=== PATIENT | female | born 1970 | race Caucasian/White ===

== ENCOUNTER → 2016-08-19 | Outpatient (CLI) | payer OTHER ==
[~2016-08-19] MED LIST: ALBU17IN INH; ALBU83IN INH; CLAR10CA3 PO; CYMB1CAP5 PO; CYMB60CA3 PO; DAYP600T PO; DICL50TA2 PO; DOXY100C PO; DULO30CA PO; FLON1SPR; GLUC500T53 PO; IBUP-1114 PO; IRON65TA PO; LEVA1.256 INH; LIDO1OIN2 TOP; LIDO5DIS36 TD; MAGN400T2 PO; MULTCAP11 PO; NABU750T PO; NEXI40CA PO; PERC5TAB6 PO; PRED10PA PO; PRED10TA PO; PRED20TAB PO; SING10TA32 PO; SPIR1CAP INH; SYMB16INH INH; THEO300C PO; VITA100066 PO; VITMTA PO; flexeril PO
--- NOTE | 2016-08-20 06:52 | REP ---
MRI study of bilateral knees without contrast: History: Increased bilateral knee pain. Comparison right knee MRI study from May 06, 2016 was read as showing evidence of avascular necrosis mild chondromalacia. MRI study of the left knee from that same date showed evidence of femoral condylar avascular necrosis as well. Technique: Axial, sagittal, and coronal imaging planes were utilized. T1 and T2-weighted scans were obtained in the usual fashion with and without fat saturation. Right knee MRI findings: There are extensive areas of avascular necrosis again seen extending from anterior to posterior through the articular margin of the medial and lateral femoral condyles. There is no evidence of flattening or collapse. Cortical and medullary bone signal intensity is normal in the patella, proximal tibia, and proximal fibula. The areas in the distal femur appear unchanged. Anterior and posterior cruciate ligaments have an intact appearance. Patellar and quadriceps tendons are intact. There is no evidence of significant joint effusion or Weiss's cyst. There is chondromalacia patella noted laterally. This may be more prominent than on the prior study as there is a partial thickness articular cartilage defect in the lateral patellar facet which appears more prominent. There is some central increased signal intensity in the midbody of the medial meniscus but this does not extend to an articular margin and is not expected to correlate with a tear. Impression: Fairly extensive areas of medial and lateral femoral condyle avascular necrosis without evidence of secondary collapse. There is some chondromalacia change in the lateral patellar facet which is a little more prominent. Mild chondromalacia changes are seen in the medial femoral condyle unchanged. Left knee MRI findings: There is extensive area of avascular necrosis in the subcortical bone involving the lateral femoral condyle again noted. This is unchanged. Cortical and medullary bone signal intensity are normal otherwise in the left knee bones. There is minimal joint fluid. There is mild chondromalacia patella medially and laterally unchanged. Patellar and quadriceps tendons appear intact. Anterior and posterior cruciate ligaments have an intact appearance. No medial or lateral collateral ligament disruption is seen. There are mild chondromalacia changes in the medial femoral condyle. These are unchanged. No meniscal tear is seen. Impression: Avascular necrosis involving the lateral femoral condyle. There is chondromalacia in the medial and patellofemoral compartments unchanged. Signed by Leodan Syed MD 08/20/2016 08:46 A
== END ==
LOC: M RAD 17:30
PROVIDERS: ATTEND Orthopaedic Surgery Sports Medicine
DX: M22.41 Chondromalacia patellae, right knee (principal); M22.42 Chondromalacia patellae, left knee; M87.351 Other secondary osteonecrosis, right femur; M87.352 Other secondary osteonecrosis, left femur

== ENCOUNTER → 2016-09-12 | Outpatient (CLI) | payer OTHER ==
[~2016-09-12] MED LIST changes: +THEO1CAP4 PO; -THEO300C PO
--- NOTE | 2016-10-02 23:52 | ECWPNPC ---
PATIENT NAME: ARLETTE BORJA : 1970 GENDER: FEMALE VISIT DATE: 09/12/2016 DISCHARGE DATE: 09/12/16 1121 VISIT LOCKED DATE TIME: PHYSICIAN: FRANSISCO SIDDIQUI RESOURCE: FRANSISCO SIDDIQUI REASON FOR APPOINTMENT 1. BACK HISTORY OF PRESENT ILLNESS HISTORY OF PRESENT ILLNESS: PAIN THE PATIENT DESCRIBES THE PAIN... FALL RISK SCREENING: SCREENING :NO FALLS IN THE PAST YEAR TODAY'S VISIT: NOTES: SAW DR WILLOUGHBY - ORTHOPEDIC SURGEON AT [facility]. WAS GIVEN TEMP DBL CAR STICKER AND ADVISED NOT TO FALL. IS TO HAVE FURTHER EVAL OF HIPS AT [facility]. NOTES HIPS ARE CATCHING AND BACK HAS BOTHERING A LOT. HAS BEEN HAVING LEG AND TOES CRAMPING. TO HAVE LABS 09/21/16. HAD REPEAT BIOPSY OF THYROID COMPLETED BY DR Ricki DAVIS. ASTHMA HAS BEEN UNDER FAIR CONTROL. . CURRENT MEDICATIONS TAKING BREO ELLIPTA 200-25 MCG/INH AEROSOL POWDER BREATH ACTIVATED 1 PUFF INHALATION ONCE A DAY TAKING INCRUSE ELLIPTA 62.5 MCG/INH AEROSOL POWDER BREATH ACTIVATED 1 PUFF INHALATION ONCE A DAY TAKING XOPENEX HFA AEROSOL EVERY 6 HR NEEDED TAKING SINGULAIR 10 MG TABLET 1 TABLET IN THE EVENING ORALLY ONCE A DAY TAKING CYMBALTA 60 MG CAPSULE DELAYED RELEASE PARTICLES 1 CAPSULE ORALLY ONCE A DAY TAKING CYMBALTA 30 MG CAPSULE DELAYED RELEASE PARTICLES 1 CAPSULE ORALLY ONCE A DAY TAKING VITAMIN D-3 2000 SOFT GEL ORALLY TWICE A DAY TAKING MAGNESIUM 400 MG TABLET 1 TABLET ORALLY ONCE A DAY TAKING FERROUS GLUCONATE 325 (36 FE) MG TABLET 1 TABLET ORALLY ONCE A DAY TAKING LORATADINE 10 MG TABLET 1 TABLET ORALLY ONCE A DAY TAKING FLUTICASONE PROPIONATE 50 MCG/ACT SUSPENSION 1 SPRAY IN EACH NOSTRIL NASALLY TWICE A DAY TAKING SALINE AEROSOL SOLUTION NASAL SPRAY TID PRN TAKING PERCOCET 5-325 MG TABLET 1-2 ORALLY EVERY 6 -8 HRS PRN PAIN MDD=6 CHRONIC PAIN TAKING FLEXERIL 10 MG TABLET 1 TABLET ORALLY QHS TAKING ACETAMINOPHEN 500 MG TABLET 2 TABLETS NEEDED ORALLY EVERY 6 HRS TAKING MULTIVITAMIN TABLET CHEWABLE ORALLY ONCE DAILY TAKING PANTOPRAZOLE SODIUM 40 MG TABLET DELAYED RELEASE 1 TABLET ORALLY TWICE A DAY TAKING MAXALT 10 MG TABLET 1 TABLET AT ON SET OF INFANTE, MAY REPEAT X 1 AFTER 2 HOURS ORALLY TWICE A DAY NEEDED, MDD=2 TAKING TOPIRAMATE 50 MG TABLET 1 TABLET ORALLY TWICE A DAY, MDD=2 MEDICATION LIST REVIEWED AND RECONCILED WITH THE PATIENT PAST MEDICAL HISTORY LT WRIST INJURY RECURRENT SINUSITIS BACK INJURY-2000(WORK) ASTHMA HYPOMAGNESEMIA VITAMIN D DEFICIENCY ALLERGIES OSTEO NECROSIS BILATERAL KNEES ALLERGIES PENICILLIN (FOR ALLERGIES USE ONLY): HIVES: ALLERGY LEVAQUIN: HIVES,SWELLING: ALLERGY LYRICA: [employer] SWELLING: ALLERGY SUDAFED: HEART RACES: SIDE EFFECTS ALBUTEROL: HEART RACES: SIDE EFFECTS SOCIAL HISTORY GENERAL: TOBACCO USE ARE YOU A:NONSMOKER LEARNING BARRIERS / SPECIAL NEEDS ORIENTED TO PLAN OF CARE: PATIENT, PAIN MANAGEMENT PATIENT, ORIENTED TO PLAN OF CARE: PATIENT, PAIN MANAGEMENT PATIENT. NEW PATIENT PAIN DIARY TODAY'S VISITNOTES FROM 0-10, WHAT LEVEL IS YOUR PAIN TODAY?0 PAIN CLINIC PFS, CLERGY, PUBLIC HEALTH REFERRALS PFS REFERRAL NEEDED?NO CLERGY REFERRAL NEEDED?NO PUBLIC HEALTH REFERRAL NEEDED?NO WAS THE PROVIDER NOTIFIED OF ANY PERTINENT INFO?NO PFS REFERRAL NEEDED?NO CLERGY REFERRAL NEEDED?NO PUBLIC HEALTH REFERRAL NEEDED?NO WAS THE PROVIDER NOTIFIED OF ANY PERTINENT INFO?NO REVIEW OF SYSTEMS CONSTITUTIONAL: ANY CHANGE IN YOUR MEDICAL CONDITION? NO . CHILLS NO . FEVER NO . INFECTION: DO YOU HAVE NEW INFECTIONS? NO . DO YOU HAVE HISTORY OF MRSA? NO . MUSCULOSKELETAL: ANY NEW PATTERNS OF PAIN OR NUMBNESS? NO . GASTROENTEROLOGY: ANY NEW CHANGE IN BOWEL CONTROL? NO . GENITOURINARY: ANY NEW CHANGE IN BLADDER CONTROL? NO . IS THERE A CHANCE YOU COULD BE ? NO . HEMATOLOGY/LYMPH: DO YOU TAKE ANY BLOOD THINNERS? (FOR EXAMPLE- COUMADIN, PLAVIX, AGGRENOX, PLATEL, PRADAXA, OR XARELTO) NO . WHEN WAS YOUR LAST DOSE? DATE: TIME: . NEUROLOGY: HAVE YOU FALLEN IN THE PAST 6 MONTHS? NO . ANY NEW EXTREMITY NUMBNESS OR WEAKNESS? NO . CARDIOLOGY: DO YOU HAVE A PACEMAKER OR DEFIBRILLATOR? NO . RESPIRATORY: HAVE YOU BEEN SICK IN THE PAST WEEK? NO . FEVER NO . FLU LIKE SYMPTOMS? NO . ASTHMA INTERMITTANT NEED FOR RESCUE INHALER - UNDER FAIR CONTROL . COUGH NO . INTEGUMENTARY: DO YOU HAVE ANY RASHES OR OPEN SORES? NO . ALLERGIC/IMMUNO: ARE YOU ALLERGIC TO SHELLFISH OR IV DYE? NO . ANY NEW ALLERGIES? NO . PSYCHIATRIC: DO YOU HAVE THOUGHTS OF HURTING YOURSELF OR SOMEONE ELSE? NO . ARE YOU ABUSED, NEGLECTED, OR IN AN UNSAFE ENVIRONMENT? NO . ENDOCRINOLOGY: ARE YOU DIABETIC? NO . OTHER: DO YOU NEED ANY PRESCRIPTIONS? YES TYLENOL ARTHRITIS 650, PERCOCET, VIT D, MAGNESIUM, FLEXERIL . IF YES, PLEASE LIST: ____ . ANY NEW PROBLEMS WITH YOUR MEDICATIONS? NO . WHEN DID YOU LAST EAT? ____ . WHEN DID YOU LAST DRINK? ____ . WHAT DID YOU LAST DRINK? ____ . NAME OF PERSON DRIVING YOU HOME? ____ . DO YOU HAVE ANY OTHER QUESTIONS OR CONCERNS YES, CRAMPING IN LEGS AND TOES, HIPS LOCK UP. . REVIEWED BY: PROVIDER: FRANSISCO VASQUEZ . VITAL SIGNS WT 219.4 LBS, HT 63 IN, BMI 38.86 INDEX, BP 138/80 MM HG, HR 88 /MIN, RR 18 /MIN, TEMP 97.3 F, OXYGEN SAT % 97, NA INITIALS TL 1026. EXAMINATION GENERAL EXAMINATION: GENERAL APPEARANCE:NO ACUTE DISTRESS, WELL NOURISHED AND HYDRATED. PSYCHAPPROPRIATE MOOD AND AFFECT . LUNGS:CLEAR TO AUSCULTATION BILATERALLY, NO WHEEZES, RHONCHI, RALES. HEART:NO MURMURS, REGULAR RATE AND RHYTHM. MUSCULOSKELETAL:MUSCLE STRENGTH TESTING 5/5 BILATERAL UPPER AND LOWER EXTREMITIES. POINT TENDERNESS OVER LUMBAR PARAVERTEBRAL MUSCLES. , TRIGGER POINTS:, ELICITED WITH PALPATION OVER LUMBAR PARAVERTEBRAL MUSCLES AND INTO THE SECRUM. RESTRICTION OF ROM IN THIS AREA. ASSESSMENTS JOINT PAIN, KNEE - M25.569 (PRIMARY) LOW BACK PAIN - M54.5 CHRONICALLY ON OPIATE THERAPY - Z79.899 TREATMENT JOINT PAIN, KNEE REFILL MAGNESIUM TABLET, 400 MG, 1 TABLET, ORALLY, ONCE A DAY, 30 DAYS, 30, REFILLS 5 REFILL PERCOCET TABLET, 5-325 MG, 1-2, ORALLY, EVERY 6 -8 HRS PRN PAIN MDD=6 CHRONIC PAIN, 30 DAY(S), 180, REFILLS 0 REFILL FLEXERIL TABLET, 10 MG, 1 TABLET, ORALLY, QHS, 30 DAY(S), 30, REFILLS 2 REFILL VITAMIN D-3 SOFT GEL, 2000, ORALLY, TWICE A DAY, 30 DAYS, 60, REFILLS 5 START SM ARTHRITIS PAIN RELIEF TABLET EXTENDED RELEASE, 650 MG, 2 TABLETS NEEDED, ORALLY, TAKE 2 TABS Q 2-8 HRS PRN PAIN MDD=6, 30 DAY(S), 180, REFILLS 5 NOTES: ASK ORTHO ABOUT KNEE BRACE WITH BARS. DECREASE CYMBALTO TO 60 MG AND TAKE 30 MG EVERY OTHER DAY FOR 2 WEEKS, THEN EVERY 3 DAYS FOR 2 WEEKS THEN TWICE A WEEK FOR 2 WEEKS. THEN STOP THE 30 MG.SCRIPT GIVEN FOR SWIMMING AT [facility]. PROCEDURE CODES FA211 ESTABILISHED PATIENT [facility] CHARGE DISPOSITION & COMMUNICATION FOLLOW UP 4-6 WEEKS ELECTRONICALLY SIGNED BY AMERICA WOODY ON 09/29/2016 AT 01:29 PM EST DISCLAIMER : THIS IS A VISIT SUMMARY EXTRACTED FROM THE [employer] CHART. IT IS NOT A COPY OF THE [employer] PROGRESS NOTE. CHARMAINE
== END ==
LOC: M PAIN 10:20
PROVIDERS: ATTEND Nurse Practitioner Family
DX: Z09 Encounter for follow-up examination after completed treatment for conditions other than malignant neoplasm (principal); G89.29 Other chronic pain; M25.569 Pain in unspecified knee; M54.5 Low back pain; J45.909 Unspecified asthma, uncomplicated; E55.9 Vitamin D deficiency, unspecified; Z88.0 Allergy status to penicillin; Z88.8 Allergy status to other drugs, medicaments and biological substances; Z79.1 Long term (current) use of non-steroidal anti-inflammatories (NSAID); Z79.891 Long term (current) use of opiate analgesic; Z79.899 Other long term (current) drug therapy

== ENCOUNTER → 2016-09-16 | Outpatient (CLI) | payer OTHER ==
--- NOTE | 2016-09-16 13:21 | REPMRS ---
Patient History The patient states she had a clinical breast exam in 09/2016. Family history of prostate cancer in father at age 50 or over. Digital Woman Screen Mammo: September 16, 2016 - Exam #: [id number] Bilateral CC and MLO view(s) were taken. Technologist: Vilma Ocoha Technologist Prior study comparison: September 15, 2015, digital woman screen mammo performed at [facility]. 2012, bilateral mammogram, performed at [facility]. FINDINGS: There are scattered fibroglandular densities. There has been no change in the appearance of the mammogram from the prior studies. There is a mild amount of scattered fibroglandular density which is fairly symmetric. There is no interval development of dominant mass, architectural distortion, or clustered microcalcification suggestive of malignancy. ASSESSMENT: BI-RADS/ACR category 1 mammogram. Negative. Recommendation Routine screening mammogram in 1 year (for women over age 40). This mammogram was interpreted with the aid of an FDA-approved computer-aided dectection system. Electronically Signed By: Adam Syed MD 09/16/16 [id number]
== END ==
LOC: M WHC 10:36
PROVIDERS: ATTEND Nurse Practitioner Women's Health
DX: Z12.31 Encounter for screening mammogram for malignant neoplasm of breast (principal)

== ENCOUNTER → 2016-09-16 | Outpatient (REF) | payer OTHER | LOC: M SFHCWAGY 11:01 | PROVIDERS: ATTEND Nurse Practitioner Women's Health | DX: Z12.4 Encounter for screening for malignant neoplasm of cervix (principal) ==

== ENCOUNTER → 2016-09-21 | Outpatient (REF) | payer OTHER ==
[2016-09-21 15:36] LABS: ALBUMIN 3.6 GM/DL (3.2-5.2); ALBUMIN/GLOBULIN RATIO 1.06 (1.00-1.93); ALKALINE PHOSPHATASE 92 U/L (45-117); ALT/SGPT 25 U/L (12-78); ANION GAP 8 MEQ/L (8-16); AST/SGOT 11 U/L (15-37); BILIRUBIN,TOTAL 0.3 MG/DL (0.2-1.0); BLOOD UREA NITROGEN 14 MG/DL (7-18); CALCIUM LEVEL 8.8 MG/DL (8.5-10.1); CARBON DIOXIDE LEVEL 28 MEQ/L (21-32); CHLORIDE LEVEL 108 MEQ/L (98-107); CREATININE FOR GFR 0.81 MG/DL (0.55-1.02); GLOMERULAR FILTRATION RATE > 60.0 (>58); GLUCOSE, FASTING 94 MG/DL (70-105); MAGNESIUM LEVEL 1.8 MG/DL (1.8-2.4); POTASSIUM SERUM 3.6 MEQ/L (3.5-5.1); SODIUM LEVEL 144 MEQ/L (136-145)
[2016-09-21 15:57] LABS: MEAN CORPUSCULAR HGB CONC 32.5 g/dl (32.0-36.5); MEAN CORPUSCULAR VOLUME 82.8 fl (80.0-96.0); RED CELL DISTRIBUTION WIDTH 14.2 % (11.5-14.5); WHITE BLOOD COUNT 3.2 K/mm3 (4.0-10.0)
== END ==
LOC: M SFHCSACK 09:54
PROVIDERS: ATTEND Physician Assistant
DX: D64.9 Anemia, unspecified (principal); J45.909 Unspecified asthma, uncomplicated; K21.9 Gastro-esophageal reflux disease without esophagitis; E83.42 Hypomagnesemia; E55.9 Vitamin D deficiency, unspecified

== ENCOUNTER → 2016-10-17 | Outpatient (CLI) | payer OTHER ==
[~2016-10-17] MED LIST changes: +MIDAZOLAM INJ 2 MG/2 ML VIAL (J2250) As Ordered ONE; +fentaNYL 100 MCG/2 ML INJECTION (J3010) As Ordered ONE
--- NOTE | 2016-10-18 01:57 | ECWPNPC ---
PATIENT NAME: ARLETTE BORJA : 1970 GENDER: FEMALE VISIT DATE: 10/17/2016 DISCHARGE DATE: 10/17/16 1133 VISIT LOCKED DATE TIME: PHYSICIAN: FRANSISCO SIDDIQUI RESOURCE: FRANSISCO SIDDIQUI REASON FOR APPOINTMENT 1. BACK HISTORY OF PRESENT ILLNESS HISTORY OF PRESENT ILLNESS: PAIN THE PATIENT DESCRIBES THE PAIN... FALL RISK SCREENING: SCREENING :NO FALLS IN THE PAST YEAR TODAY'S VISIT: NOTES: RATES PAIN TODAY 9/10. DESCRIBES PAIN CONSTANT, ACHING, BURNING, SHARP AND STABBING. PAIN IS LOCATED ACROSS LOW BACK, RIGHT SHOULDER BLADE AND AT JOINTS. NOTES SHE HAS BEEN FEELING REALLY TIRED AND THIINKS HER ASTHMA IS FLAIRED. DID RECENTLY START ON TOPAMAX FOR MIGRAINES.. CURRENT MEDICATIONS TAKING BREO ELLIPTA 200-25 MCG/INH AEROSOL POWDER BREATH ACTIVATED 1 PUFF INHALATION ONCE A DAY TAKING INCRUSE ELLIPTA 62.5 MCG/INH AEROSOL POWDER BREATH ACTIVATED 1 PUFF INHALATION ONCE A DAY TAKING XOPENEX HFA AEROSOL EVERY 6 HR NEEDED TAKING SINGULAIR 10 MG TABLET 1 TABLET IN THE EVENING ORALLY ONCE A DAY TAKING CYMBALTA 60 MG CAPSULE DELAYED RELEASE PARTICLES 1 CAPSULE ORALLY ONCE A DAY TAKING CYMBALTA 30 MG CAPSULE DELAYED RELEASE PARTICLES 1 CAPSULE ORALLY ONCE A DAY TAKING TOPIRAMATE 50 MG TABLET 1 TABLET ORALLY TWICE A DAY, MDD=2 TAKING MAXALT 10 MG TABLET 1 TABLET AT ON SET OF INFANTE, MAY REPEAT X 1 AFTER 2 HOURS ORALLY TWICE A DAY NEEDED, MDD=2 TAKING PERCOCET 5-325 MG TABLET 1-2 ORALLY EVERY 6 -8 HRS PRN PAIN MDD=6 CHRONIC PAIN TAKING FLEXERIL 10 MG TABLET 1 TABLET ORALLY QHS TAKING PANTOPRAZOLE SODIUM 40 MG TABLET DELAYED RELEASE 1 TABLET ORALLY TWICE A DAY TAKING MAGNESIUM 400 MG TABLET 1 TABLET ORALLY ONCE A DAY TAKING LORATADINE 10 MG TABLET 1 TABLET ORALLY ONCE A DAY TAKING FLUTICASONE PROPIONATE 50 MCG/ACT SUSPENSION 1 SPRAY IN EACH NOSTRIL NASALLY TWICE A DAY TAKING SALINE AEROSOL SOLUTION NASAL SPRAY TID PRN TAKING DRISDOL 21754 UNIT CAPSULE 1 CAPSULE ORALLY ONCE A WEEK TAKING MULTIVITAMIN TABLET CHEWABLE ORALLY ONCE DAILY TAKING SM ARTHRITIS PAIN RELIEF 650 MG TABLET EXTENDED RELEASE 2 TABLETS NEEDED ORALLY TAKE 2 TABS Q 2-8 HRS PRN PAIN MDD=6 TAKING FERROUS GLUCONATE 325 (36 FE) MG TABLET 1 TABLET ORALLY ONCE A DAY MEDICATION LIST REVIEWED AND RECONCILED WITH THE PATIENT PAST MEDICAL HISTORY LT WRIST INJURY RECURRENT SINUSITIS BACK INJURY-2000(WORK) ASTHMA HYPOMAGNESEMIA VITAMIN D DEFICIENCY ALLERGIES OSTEO NECROSIS BILATERAL KNEES ALLERGIES PENICILLIN (FOR ALLERGIES USE ONLY): HIVES: ALLERGY LEVAQUIN: HIVES,SWELLING: ALLERGY LYRICA: [employer] SWELLING: ALLERGY SUDAFED: HEART RACES: SIDE EFFECTS ALBUTEROL: HEART RACES: SIDE EFFECTS SOCIAL HISTORY GENERAL: TOBACCO USE ARE YOU A:NONSMOKER LEARNING BARRIERS / SPECIAL NEEDS ORIENTED TO PLAN OF CARE: PATIENT, PAIN MANAGEMENT PATIENT, ORIENTED TO PLAN OF CARE: PATIENT, PAIN MANAGEMENT PATIENT. NEW PATIENT PAIN DIARY TODAY'S VISITNOTES FROM 0-10, WHAT LEVEL IS YOUR PAIN TODAY?0 PAIN CLINIC PFS, CLERGY, PUBLIC HEALTH REFERRALS PFS REFERRAL NEEDED?NO CLERGY REFERRAL NEEDED?NO PUBLIC HEALTH REFERRAL NEEDED?NO WAS THE PROVIDER NOTIFIED OF ANY PERTINENT INFO?NO PFS REFERRAL NEEDED?NO CLERGY REFERRAL NEEDED?NO PUBLIC HEALTH REFERRAL NEEDED?NO WAS THE PROVIDER NOTIFIED OF ANY PERTINENT INFO?NO REVIEW OF SYSTEMS CONSTITUTIONAL: ANY CHANGE IN YOUR MEDICAL CONDITION? YES PT HAD A TRIGGER FINGER RELEASE DONE 10/13/16 IN [place]. . CHILLS NO . FEVER NO . INFECTION: DO YOU HAVE NEW INFECTIONS? NO . DO YOU HAVE HISTORY OF MRSA? NO . MUSCULOSKELETAL: ANY NEW PATTERNS OF PAIN OR NUMBNESS? YES PAIN IN RIGHT HAND S/P TRIGGER FINGER RELEASE 3 PT ALSO REPORTS SEVERE BACK PAIN WHEN SHE IS PREMENSTRUAL. . GASTROENTEROLOGY: ANY NEW CHANGE IN BOWEL CONTROL? NO . GENITOURINARY: ANY NEW CHANGE IN BLADDER CONTROL? NO . IS THERE A CHANCE YOU COULD BE ? NO . HEMATOLOGY/LYMPH: DO YOU TAKE ANY BLOOD THINNERS? (FOR EXAMPLE- COUMADIN, PLAVIX, AGGRENOX, PLATEL, PRADAXA, OR XARELTO) NO . WHEN WAS YOUR LAST DOSE? DATE: TIME: . NEUROLOGY: HAVE YOU FALLEN IN THE PAST 6 MONTHS? NO . ANY NEW EXTREMITY NUMBNESS OR WEAKNESS? NO . CARDIOLOGY: DO YOU HAVE A PACEMAKER OR DEFIBRILLATOR? NO . RESPIRATORY: HAVE YOU BEEN SICK IN THE PAST WEEK? NO . FEVER NO . FLU LIKE SYMPTOMS? NO . COUGH NO . INTEGUMENTARY: DO YOU HAVE ANY RASHES OR OPEN SORES? NO . ALLERGIC/IMMUNO: ARE YOU ALLERGIC TO SHELLFISH OR IV DYE? NO . ANY NEW ALLERGIES? NO . PSYCHIATRIC: DO YOU HAVE THOUGHTS OF HURTING YOURSELF OR SOMEONE ELSE? NO . ARE YOU ABUSED, NEGLECTED, OR IN AN UNSAFE ENVIRONMENT? NO . ENDOCRINOLOGY: ARE YOU DIABETIC? NO . OTHER: DO YOU NEED ANY PRESCRIPTIONS? YES OXYCODONE/TYLENOL 5/325, CYMBALTA, MAGNESIUM, SM ARTHRITIS PAIN . IF YES, PLEASE LIST: ____ . ANY NEW PROBLEMS WITH YOUR MEDICATIONS? NO . WHEN DID YOU LAST EAT? ____ . WHEN DID YOU LAST DRINK? ____ . WHAT DID YOU LAST DRINK? ____ . NAME OF PERSON DRIVING YOU HOME? ____ . DO YOU HAVE ANY OTHER QUESTIONS OR CONCERNS NO . REVIEWED BY: PROVIDER: FRANSISCO VASQUEZ . VITAL SIGNS WT 217.4 LBS, HT 63 IN, BMI 38.51 INDEX, BP 132/68 MM HG, HR 78 /MIN, RR 16 /MIN, TEMP 96.8 F, OXYGEN SAT % 96%, NA INITIALS SC 10:32. EXAMINATION GENERAL EXAMINATION: GENERAL APPEARANCE:NO ACUTE DISTRESS, WELL NOURISHED AND HYDRATED. PSYCHAPPROPRIATE MOOD AND AFFECT . LUNGS:CLEAR TO AUSCULTATION BILATERALLY, NO WHEEZES, RHONCHI, RALES. HEART:NO MURMURS, REGULAR RATE AND RHYTHM. MUSCULOSKELETAL:MUSCLE STRENGTH TESTING 5/5 BILATERAL UPPER AND LOWER EXTREMITIES. POINT TENDERNESS OVER LUMBAR PARAVERTEBRAL MUSCLES. , TRIGGER POINTS:, ELICITED WITH PALPATION OVER LUMBAR PARAVERTEBRAL MUSCLES AND INTO THE SECRUM. RESTRICTION OF ROM IN THIS AREA. ASSESSMENTS JOINT PAIN, KNEE - M25.569 (PRIMARY) LOW BACK PAIN - M54.5 CHRONICALLY ON OPIATE THERAPY - Z79.899 TREATMENT JOINT PAIN, KNEE REFILL PERCOCET TABLET, 5-325 MG, 1-2, ORALLY, EVERY 6 -8 HRS PRN PAIN MDD=6 CHRONIC PAIN, 30 DAY(S), 180, REFILLS 0 START B COMPLEX VITAMINS ELIXIR, -, DIRECTED, ORALLY, ONCE DAILY, 30 DAY(S), 30, REFILLS 2 NOTES: MOVE TOLERATED. CLINICAL NOTES: ISTOP REGISTRY REVIEWED AND DEMNOSTRATES COMPLLIANCE. BRINGS IN MEDICATIONS WHICH IS APPROPRIATE FOR WHAT WAS DISPENSED. RECENT URINE TOXICOLOGY REVIEWED. NO UNAUTHORIZED MEDICATIONS. NO ILLICIT SUBSTANCES AND PRESCRIBED MEDICATIONS WERE PRESENT. PROCEDURE CODES FA211 ESTABILISHED PATIENT [facility] CHARGE DISPOSITION & COMMUNICATION FOLLOW UP 7 WEEKS ELECTRONICALLY SIGNED BY AMERICA WOODY ON 10/17/2016 AT 06:32 PM EST DISCLAIMER : THIS IS A VISIT SUMMARY EXTRACTED FROM THE [employer] CHART. IT IS NOT A COPY OF THE [employer] PROGRESS NOTE. CHARMAINE
== END ==
LOC: M PAIN 10:00
PROVIDERS: ATTEND Nurse Practitioner Family
DX: M25.569 Pain in unspecified knee (principal); M54.5 Low back pain; G43.009 Migraine without aura, not intractable, without status migrainosus; G89.29 Other chronic pain; Z79.891 Long term (current) use of opiate analgesic; Z79.899 Other long term (current) drug therapy; D64.9 Anemia, unspecified; E83.42 Hypomagnesemia; E66.9 Obesity, unspecified; K21.9 Gastro-esophageal reflux disease without esophagitis; J45.909 Unspecified asthma, uncomplicated; Z88.0 Allergy status to penicillin; Z88.8 Allergy status to other drugs, medicaments and biological substances
CPT/HCPCS: G0463; J2250; J3010

== ENCOUNTER → 2016-12-09 | Outpatient (CLI) | payer OTHER ==
[~2016-12-09] MED LIST changes: -MIDAZOLAM INJ 2 MG/2 ML VIAL (J2250) As Ordered ONE; -fentaNYL 100 MCG/2 ML INJECTION (J3010) As Ordered ONE
--- NOTE | 2016-12-30 00:24 | ECWPNPC ---
PATIENT NAME: ARLETTE BORJA : 1970 GENDER: FEMALE VISIT DATE: 12/09/2016 DISCHARGE DATE: 12/09/16 1201 VISIT LOCKED DATE TIME: PHYSICIAN: FRANSISCO SIDDIQUI RESOURCE: FRANSISCO SIDDIQUI REASON FOR APPOINTMENT 1. BACK HISTORY OF PRESENT ILLNESS HISTORY OF PRESENT ILLNESS: PAIN THE PATIENT DESCRIBES THE PAIN... FALL RISK SCREENING: SCREENING :NO FALLS IN THE PAST YEAR TODAY'S VISIT: NOTES: RATES PAIN TODAY 8-9/10. NOTES PAIN AND REPORTS SWELLING AT RIGHT ANKLE. HAS BEEN TRING TO STAY ACTIVE.HAD RECENT CORTISONE INJ IN LEE KNEE. IS HAVING PAIN IN LOW BACK WITH ROUTINE ACTIVITY. . CURRENT MEDICATIONS TAKING BREO ELLIPTA 200-25 MCG/INH AEROSOL POWDER BREATH ACTIVATED 1 PUFF INHALATION ONCE A DAY TAKING INCRUSE ELLIPTA 62.5 MCG/INH AEROSOL POWDER BREATH ACTIVATED 1 PUFF INHALATION ONCE A DAY TAKING XOPENEX HFA AEROSOL EVERY 6 HR NEEDED TAKING SINGULAIR 10 MG TABLET 1 TABLET IN THE EVENING ORALLY ONCE A DAY TAKING CYMBALTA 60 MG CAPSULE DELAYED RELEASE PARTICLES 1 CAPSULE ORALLY ONCE A DAY TAKING TOPIRAMATE 50 MG TABLET 1 TABLET ORALLY BEFORE BEDTIME TAKING MAXALT 10 MG TABLET 1 TABLET AT ON SET OF INFANTE, DECEMBER REPEAT X 1 AFTER 2 HOURS ORALLY TWICE A DAY NEEDED, MDD=2 TAKING FLEXERIL 10 MG TABLET 1 TABLET ORALLY QHS NEEDED TAKING PANTOPRAZOLE SODIUM 40 MG TABLET DELAYED RELEASE 1 TABLET ORALLY TWICE A DAY TAKING MAGNESIUM 400 MG TABLET 1 TABLET ORALLY ONCE A DAY TAKING LORATADINE 10 MG TABLET 1 TABLET ORALLY ONCE A DAY TAKING FLUTICASONE PROPIONATE 50 MCG/ACT SUSPENSION 1 SPRAY IN EACH NOSTRIL NASALLY TWICE A DAY TAKING SALINE AEROSOL SOLUTION NASAL SPRAY TID PRN TAKING DRISDOL 40761 UNIT CAPSULE 1 CAPSULE ORALLY ONCE A WEEK TAKING MULTIVITAMIN TABLET CHEWABLE ORALLY ONCE DAILY TAKING SM ARTHRITIS PAIN RELIEF 650 MG TABLET EXTENDED RELEASE 2 TABLETS NEEDED ORALLY TAKE 2 TABS Q 2-8 HRS PRN PAIN MDD=6 TAKING FERROUS GLUCONATE 325 (36 FE) MG TABLET 1 TABLET ORALLY ONCE A DAY TAKING PERCOCET 5-325 MG TABLET 1-2 ORALLY EVERY 6 -8 HRS PRN PAIN MDD=6 CHRONIC PAIN TAKING PROZAC 10 MG CAPSULE 1 CAPSULE IN THE MORNING ORALLY ONCE A DAY NOT-TAKING CYMBALTA 30 MG CAPSULE DELAYED RELEASE PARTICLES 1 CAPSULE ORALLY ONCE A DAY NOT-TAKING B COMPLEX VITAMINS - ELIXIR DIRECTED ORALLY ONCE DAILY, NOTES: DID NOT GET SCRIPT MEDICATION LIST REVIEWED AND RECONCILED WITH THE PATIENT PAST MEDICAL HISTORY LT WRIST INJURY RECURRENT SINUSITIS BACK INJURY-2000(WORK) ASTHMA HYPOMAGNESEMIA VITAMIN D DEFICIENCY ALLERGIES OSTEO NECROSIS BILATERAL KNEES ALLERGIES PENICILLIN (FOR ALLERGIES USE ONLY): HIVES: ALLERGY LEVAQUIN: HIVES,SWELLING: ALLERGY LYRICA: [employer] SWELLING: ALLERGY SUDAFED: HEART RACES: SIDE EFFECTS ALBUTEROL: HEART RACES: SIDE EFFECTS REVIEW OF SYSTEMS CONSTITUTIONAL: ANY CHANGE IN YOUR MEDICAL CONDITION? NO . CHILLS NO . FEVER NO . INFECTION: DO YOU HAVE NEW INFECTIONS? NO . DO YOU HAVE HISTORY OF MRSA? NO . MUSCULOSKELETAL: ANY NEW PATTERNS OF PAIN OR NUMBNESS? NO . GASTROENTEROLOGY: ANY NEW CHANGE IN BOWEL CONTROL? NO . GENITOURINARY: ANY NEW CHANGE IN BLADDER CONTROL? NO . IS THERE A CHANCE YOU COULD BE ? NO . HEMATOLOGY/LYMPH: DO YOU TAKE ANY BLOOD THINNERS? (FOR EXAMPLE- COUMADIN, PLAVIX, AGGRENOX, PLATEL, PRADAXA, OR XARELTO) NO . WHEN WAS YOUR LAST DOSE? DATE: TIME: . NEUROLOGY: HAVE YOU FALLEN IN THE PAST 6 MONTHS? NO . ANY NEW EXTREMITY NUMBNESS OR WEAKNESS? NO . CARDIOLOGY: DO YOU HAVE A PACEMAKER OR DEFIBRILLATOR? NO . RESPIRATORY: HAVE YOU BEEN SICK IN THE PAST WEEK? NO . FEVER NO . FLU LIKE SYMPTOMS? NO . ASTHMA MORE FREQ COUGH, DOING INHALERS. IS HAVING ISSUES WITH SINUS DRAINAGE . COUGH NO . INTEGUMENTARY: DO YOU HAVE ANY RASHES OR OPEN SORES? NO . ALLERGIC/IMMUNO: ARE YOU ALLERGIC TO SHELLFISH OR IV DYE? NO . ANY NEW ALLERGIES? NO . PSYCHIATRIC: DO YOU HAVE THOUGHTS OF HURTING YOURSELF OR SOMEONE ELSE? NO . ARE YOU ABUSED, NEGLECTED, OR IN AN UNSAFE ENVIRONMENT? NO . ENDOCRINOLOGY: ARE YOU DIABETIC? NO . OTHER: DO YOU NEED ANY PRESCRIPTIONS? YES . IF YES, PLEASE LIST: PERCOCET AND FLEXERIL . ANY NEW PROBLEMS WITH YOUR MEDICATIONS? NO . WHEN DID YOU LAST EAT? ____ . WHEN DID YOU LAST DRINK? ____ . WHAT DID YOU LAST DRINK? ____ . NAME OF PERSON DRIVING YOU HOME? ____ . DO YOU HAVE ANY OTHER QUESTIONS OR CONCERNS YES, &QUOT;RIGHT ANKLE KILLING ME! SWOLLEN&QUOT; . REVIEWED BY: PROVIDER: FRANSISCO VASQUEZ . VITAL SIGNS WT 213.4 LBS, HT 63 IN, BMI 37.80 INDEX, BP 143/86 MM HG, HR 84 /MIN, RR 16 /MIN, TEMP 97.7 F, OXYGEN SAT % 98%, NA INITIALS SC 11:15, REVIEWED BY: CS. EXAMINATION GENERAL EXAMINATION: GENERAL APPEARANCE:NO ACUTE DISTRESS, WELL NOURISHED AND HYDRATED. PSYCHAPPROPRIATE MOOD AND AFFECT . LUNGS:CLEAR TO AUSCULTATION BILATERALLY, NO WHEEZES, RHONCHI, RALES. HEART:NO MURMURS, REGULAR RATE AND RHYTHM. MUSCULOSKELETAL:MUSCLE STRENGTH TESTING 5/5 BILATERAL UPPER AND LOWER EXTREMITIES. POINT TENDERNESS OVER LUMBAR PARAVERTEBRAL MUSCLES. , TRIGGER POINTS:, ELICITED WITH PALPATION OVER LUMBAR PARAVERTEBRAL MUSCLES AND INTO THE SECRUM. RESTRICTION OF ROM IN THIS AREA. JOINTS:LEFT , KNEE , RIGHT , ANKLE TENDER, WARM TO TOUCH, EDEMATOUS AND WITH LIMITED ROM SECONDARY TO PAIN. ASSESSMENTS JOINT PAIN, KNEE - M25.569 (PRIMARY) LOW BACK PAIN - M54.5 CHRONICALLY ON OPIATE THERAPY - Z79.899 PAIN IN RIGHT ANKLE AND JOINTS OF RIGHT FOOT - M25.571 OTHER CHRONIC PAIN - G89.29 TREATMENT JOINT PAIN, KNEE REFILL FLEXERIL TABLET, 10 MG, 1 TABLET, ORALLY, QHS NEEDED, 30 DAY(S), 30, REFILLS 5 REFILL PERCOCET TABLET, 5-325 MG, 1-2, ORALLY, EVERY 6 -8 HRS PRN PAIN MDD=6 CHRONIC PAIN, 30 DAY(S), 180, REFILLS 0 START CYCLOBENZAPRINE HCL TABLET, 10 MG, 1 TABLET NEEDED, ORALLY, AT BEDTIME, 30 DAY(S), 30, REFILLS 5 [facility] MRI ANKLE WITHOUT [id number],SUSAN M 12/09/2016 11:39:20 AM > RIGHT INCREASED PAIN AND SWELLING NOTES: URINE TOX TODAY. PROCEDURE CODES FA211 ESTABILISHED PATIENT [facility] F[facility] CHARGE DISPOSITION & COMMUNICATION FOLLOW UP 4-6 WEEKS (REASON: CHECK AUTH FOR MRI RIGHT ANKLE) ELECTRONICALLY SIGNED BY AMERICA WOODY ON 12/29/2016 AT 05:59 PM EDT DISCLAIMER : THIS IS A VISIT SUMMARY EXTRACTED FROM THE [employer] CHART. IT IS NOT A COPY OF THE [employer] PROGRESS NOTE. [place]
== END | disposition home or self-care (01) ==
LOC: M PAIN 11:00
PROVIDERS: ATTEND Nurse Practitioner Family
DX: G89.29 Other chronic pain (principal); M25.569 Pain in unspecified knee; M54.5 Low back pain; M25.571 Pain in right ankle and joints of right foot; J45.909 Unspecified asthma, uncomplicated; E83.42 Hypomagnesemia; Z79.899 Other long term (current) drug therapy; Z79.51 Long term (current) use of inhaled steroids; Z88.0 Allergy status to penicillin; Z88.1 Allergy status to other antibiotic agents; Z88.8 Allergy status to other drugs, medicaments and biological substances

== ENCOUNTER → 2017-01-13 | Outpatient (CLI) | payer OTHER ==
--- NOTE | 2017-01-14 14:53 | ECHO ---
DATE OF STUDY: 01/13/2017 REFERRING INDIVIDUAL: BRANDY Espinoza INDICATION: Abnormal EKG. HEIGHT: 167 cm WEIGHT: 91.2 kg 2D MEASUREMENTS: Left atrium: 3.1 cm Ventricular septum: 1.03 cm Posterior wall: 0.98 cm Left ventricle diastole: 3.9 cm LVOT: 2.1 cm Aortic root: 2.8 cm Inferior vena cava: 1.3 cm DOPPLER MEASUREMENTS: Trace aortic regurgitation. Aortic valve velocity: 123 cm/s LVOT velocity: 110 cm/s LVOT VTI: 18.7 cm Trace mitral regurgitation. Mitral E velocity: 64.0 cm/s Mitral A velocity: 80.2 cm/s Mitral deceleration time: 211 ms Mild tricuspid regurgitation. Estimated right ventricle systolic pressure: 31 mmHg assuming a right pressure of 5 mmHg. Pulmonary artery systolic pressure: 17 mmHg by pulmonary acceleration time method. MITRAL ANNULAR TISSUE DOPPLER: E prime septal: 7.1 cm/s E prime lateral: 8.4 cm/s DESCRIPTION: Rhythm was sinus. Image quality was fair. No pericardial effusion. This is a 2D, M-mode, color flow Doppler, and pulse wave Doppler examination including mitral annular tissue Doppler. CONCLUSIONS: 1. Grade 1 left ventricular (LV) diastolic dysfunction. 2. Normal left ventricle internal dimensions and wall thickness. Normal LV wall motion and wall thickening. Normal LV systolic function. Left ventricular ejection fraction 70% by visual estimate. 3. Suggestive of possible slight elevation of estimated right ventricle systolic pressure. 4. Otherwise, normal-appearing echocardiogram Doppler.
== END ==
LOC: M CARPUL 10:26
PROVIDERS: ATTEND Physician Assistant
DX: R94.31 Abnormal electrocardiogram [ECG] [EKG] (principal)

== ENCOUNTER → 2017-01-20 | Outpatient (CLI) | payer OTHER ==
[~2017-01-20] MED LIST changes: -LIDO5DIS36 TD; +LIDO5DIS41 TD; +PERC5TAB12 PO; -PERC5TAB6 PO
--- NOTE | 2017-02-09 01:15 | ECWPNPC ---
PATIENT NAME: ARLETTE BORJA : 1970 GENDER: FEMALE VISIT DATE: 01/20/2017 DISCHARGE DATE: 01/20/17 1221 VISIT LOCKED DATE TIME: PHYSICIAN: FRANSISCO SIDDIQUI RESOURCE: FRANSISCO SIDDIQIU REASON FOR APPOINTMENT 1. CHECK AUTH FOR MRI RIGHT ANKLE HISTORY OF PRESENT ILLNESS HISTORY OF PRESENT ILLNESS: PAIN THE PATIENT DESCRIBES THE PAIN... FALL RISK SCREENING: SCREENING :NO FALLS IN THE PAST YEAR TODAY'S VISIT: NOTES: RATES PAIN TODAY 9/10. DESCRIBES PAIN CONSTANT, ACHING AND BURNING. IS CURRENTLY ON ABX FROM NEW PCP FOR SINUS INFECTION.CONTINUES TO HAVE SIGNIFICANT SHARP TWISTING PAIN AT RIGHT ANKLE. REPORTS SHE IS HAVING INCREASED ASTHMA SYMPTOMS AND THIS IS COMPLICATING THE SITUATION. SLEEP HAS BEEN POOR DUE TO PAIN. CURRENT MEDICATIONS TAKING PROZAC 20 MG CAPSULE 1 CAPSULE IN THE MORNING ORALLY ONCE A DAY TAKING CYMBALTA 60 MG CAPSULE DELAYED RELEASE PARTICLES 1 CAPSULE ORALLY ONCE A DAY TAKING TOPIRAMATE 50 MG TABLET 1 TABLET ORALLY BEFORE BEDTIME TAKING MAXALT 10 MG TABLET 1 TABLET AT ON SET OF INFANTE, MAY REPEAT X 1 AFTER 2 HOURS ORALLY TWICE A DAY NEEDED, MDD=2 TAKING PANTOPRAZOLE SODIUM 40 MG TABLET DELAYED RELEASE 1 TABLET ORALLY TWICE A DAY TAKING MAGNESIUM 400 MG TABLET 1 TABLET ORALLY ONCE A DAY TAKING SALINE AEROSOL SOLUTION NASAL SPRAY TID PRN TAKING DRISDOL 95532 UNIT CAPSULE 1 CAPSULE ORALLY ONCE A WEEK TAKING MULTIVITAMIN TABLET CHEWABLE ORALLY ONCE DAILY TAKING SM ARTHRITIS PAIN RELIEF 650 MG TABLET EXTENDED RELEASE 2 TABLETS NEEDED ORALLY TAKE 2 TABS Q 2-8 HRS PRN PAIN MDD=6 TAKING FERROUS GLUCONATE 325 (36 FE) MG TABLET 1 TABLET ORALLY ONCE A DAY TAKING PERCOCET 5-325 MG TABLET 1-2 ORALLY EVERY 6 -8 HRS PRN PAIN MDD=6 CHRONIC PAIN, NOTES: PAIN CLINIC TAKING CYCLOBENZAPRINE HCL 10 MG TABLET 1 TABLET NEEDED ORALLY AT BEDTIME, NOTES: PAIN CLINIC TAKING BREO ELLIPTA 200-25 MCG/INH AEROSOL POWDER BREATH ACTIVATED 1 PUFF INHALATION ONCE A DAY TAKING INCRUSE ELLIPTA 62.5 MCG/INH AEROSOL POWDER BREATH ACTIVATED 1 PUFF INHALATION ONCE A DAY TAKING XOPENEX HFA AEROSOL EVERY 6 HR NEEDED TAKING SINGULAIR 10 MG TABLET 1 TABLET IN THE EVENING ORALLY ONCE A DAY TAKING FLUTICASONE PROPIONATE 50 MCG/ACT SUSPENSION 1 SPRAY IN EACH NOSTRIL NASALLY TWICE A DAY TAKING LORATADINE 10 MG TABLET 1 TABLET ORALLY ONCE A DAY TAKING BACTRIM DS 800-160 MG TABLET 1 TABLET ORALLY TWICE A DAY MEDICATION LIST REVIEWED AND RECONCILED WITH THE PATIENT PAST MEDICAL HISTORY LT WRIST INJURY RECURRENT SINUSITIS BACK INJURY-2000(WORK)- L3 - 4 DISC HERNIATION - CHRONIC IDRIS PAIN MANAGED BY PAIN CLINIC ASTHMA - FOLLOWED BY PULMONARY [place] VITAMIN D DEFICIENCY ALLERGIES OSTEO NECROSIS BILATERAL KNEES MIGRAINES MULTINODULAR GOITER WITH LARGE MICROCALCIFIC NODES - S/P BIOPSY - BENIGN PER [facility] - REPEAT US 08/2017 RECOMMENDED OBESITY - MANAGED WITH PHENTERIMINE IN THE PAST VITAMIN D DEFICIENCY GERD/SMALL HH PER EGD 2016 ECHO 12/2016 - GRADE 1 LV DIASTOLIC DYSFUNCTION. NORMAL LV SIZE, THICKNESS AND WALL MOTION. EF 70%. POSSIBLE ELEVATED RIGHT VENTRICULAR SYSTOLIC PRESSURE ALLERGIES PENICILLIN (FOR ALLERGIES USE ONLY): HIVES: ALLERGY LEVAQUIN: HIVES,SWELLING: ALLERGY LYRICA: [employer] SWELLING: ALLERGY SUDAFED: HEART RACES: SIDE EFFECTS ALBUTEROL: HEART RACES: SIDE EFFECTS REVIEW OF SYSTEMS REVIEWED BY: PROVIDER: FRANSISCO VASQUEZ . CONSTITUTIONAL: ANY CHANGE IN YOUR MEDICAL CONDITION? NO . CHILLS NO . FEVER NO . INFECTION: DO YOU HAVE NEW INFECTIONS? NO . DO YOU HAVE HISTORY OF MRSA? NO . MUSCULOSKELETAL: ANY NEW PATTERNS OF PAIN OR NUMBNESS? YES, INCREASED PAIN TO BACK, HIPS, AND KNEES . GASTROENTEROLOGY: ANY NEW CHANGE IN BOWEL CONTROL? NO . GENITOURINARY: ANY NEW CHANGE IN BLADDER CONTROL? NO . IS THERE A CHANCE YOU COULD BE ? NO . HEMATOLOGY/LYMPH: DO YOU TAKE ANY BLOOD THINNERS? (FOR EXAMPLE- COUMADIN, PLAVIX, AGGRENOX, PLATEL, PRADAXA, OR XARELTO) NO . WHEN WAS YOUR LAST DOSE? DATE: TIME: . NEUROLOGY: HAVE YOU FALLEN IN THE PAST 6 MONTHS? NO . ANY NEW EXTREMITY NUMBNESS OR WEAKNESS? NO . CARDIOLOGY: DO YOU HAVE A PACEMAKER OR DEFIBRILLATOR? NO . RESPIRATORY: HAVE YOU BEEN SICK IN THE PAST WEEK? NO . FEVER NO . FLU LIKE SYMPTOMS? NO . ASTHMA NOT UNDER GOOD CONTROL . COUGH NO . INTEGUMENTARY: DO YOU HAVE ANY RASHES OR OPEN SORES? NO . ALLERGIC/IMMUNO: ARE YOU ALLERGIC TO SHELLFISH OR IV DYE? NO . ANY NEW ALLERGIES? NO . PSYCHIATRIC: DO YOU HAVE THOUGHTS OF HURTING YOURSELF OR SOMEONE ELSE? NO . ARE YOU ABUSED, NEGLECTED, OR IN AN UNSAFE ENVIRONMENT? NO . ENDOCRINOLOGY: ARE YOU DIABETIC? NO . OTHER: DO YOU NEED ANY PRESCRIPTIONS? YES . IF YES, PLEASE LIST: PERCO CET . ANY NEW PROBLEMS WITH YOUR MEDICATIONS? MORE PAIN . WHEN DID YOU LAST EAT? ____ . WHEN DID YOU LAST DRINK? ____ . WHAT DID YOU LAST DRINK? ____ . NAME OF PERSON DRIVING YOU HOME? ____ . DO YOU HAVE ANY OTHER QUESTIONS OR CONCERNS NO . VITAL SIGNS WT 204.6 LBS, HT 63 IN, BMI 36.24 INDEX, BP 131/86 MM HG, HR 80 /MIN, RR 16 /MIN, TEMP 97.6 F, OXYGEN SAT % 99%, NA INITIALS TL 1124, REVIEWED BY: NL. EXAMINATION GENERAL EXAMINATION: GENERAL APPEARANCE:NO ACUTE DISTRESS, WELL NOURISHED AND HYDRATED. PSYCHAPPROPRIATE MOOD AND AFFECT . LUNGS:CLEAR TO AUSCULTATION BILATERALLY, NO WHEEZES, RHONCHI, RALES, DECREASED AIR ENTRY AT BASES. HEART:NO MURMURS, REGULAR RATE AND RHYTHM. MUSCULOSKELETAL:MUSCLE STRENGTH TESTING 5/5 BILATERAL UPPER AND LOWER EXTREMITIES. POINT TENDERNESS OVER LUMBAR PARAVERTEBRAL MUSCLES. , TRIGGER POINTS:, ELICITED WITH PALPATION OVER LUMBAR PARAVERTEBRAL MUSCLES AND INTO THE SECRUM. RESTRICTION OF ROM IN THIS AREA. JOINTS:LEFT , KNEE , RIGHT , ANKLE TENDER, WARM TO TOUCH, EDEMATOUS AND WITH LIMITED ROM SECONDARY TO PAIN. ASSESSMENTS JOINT PAIN, KNEE - M25.569 (PRIMARY) LOW BACK PAIN - M54.5 CHRONICALLY ON OPIATE THERAPY - Z79.899 PAIN IN RIGHT ANKLE AND JOINTS OF RIGHT FOOT - M25.571 MYALGIA - M79.1 TREATMENT JOINT PAIN, KNEE REFILL PERCOCET TABLET, 5-325 MG, 1-2, ORALLY, EVERY 6 -8 HRS PRN PAIN MDD=6 CHRONIC PAIN, 30 DAY(S), 180, REFILLS 0 NOTES: CONTINUE MASSAGE, ICE, HEATUSE SMALL DOSES OF FLEXERIL. STRESS MANAGMENT. PROCEDURE CODES FA211 ESTABILISHED PATIENT [facility] CHARGE DISPOSITION & COMMUNICATION FOLLOW UP 6 WEEKS (REASON: JOINT PAIN) ELECTRONICALLY SIGNED BY AMERICA WOODY ON 02/08/2017 AT 01:38 PM EDT DISCLAIMER : THIS IS A VISIT SUMMARY EXTRACTED FROM THE [employer] CHART. IT IS NOT A COPY OF THE [employer] PROGRESS NOTE. CHARMAINE
== END ==
LOC: M PAIN 11:00
PROVIDERS: ATTEND Nurse Practitioner Family
DX: M25.569 Pain in unspecified knee (principal); M54.5 Low back pain; M25.571 Pain in right ankle and joints of right foot; M79.1 Myalgia; Z79.899 Other long term (current) drug therapy; Z79.891 Long term (current) use of opiate analgesic; Z88.0 Allergy status to penicillin; Z88.8 Allergy status to other drugs, medicaments and biological substances

== ENCOUNTER → 2017-03-13 | Outpatient (CLI) | payer OTHER | LOC: M PAIN 10:20 | PROVIDERS: ATTEND Nurse Practitioner Family | DX: M54.5 Low back pain (principal); Z53.20 Procedure and treatment not carried out because of patient's decision for unspecified reasons ==

== ENCOUNTER → 2017-03-14 | Outpatient (CLI) | payer OTHER ==
--- NOTE | 2017-04-04 00:21 | ECWPNPC ---
PATIENT NAME: ARLETTE BORJA : 1970 GENDER: FEMALE VISIT DATE: 03/14/2017 DISCHARGE DATE: 03/14/17 1040 VISIT LOCKED DATE TIME: PHYSICIAN: FRANSISCO SIDDIQUI RESOURCE: FRANSISCO SIDDIQUI REASON FOR APPOINTMENT 1. LBP HISTORY OF PRESENT ILLNESS HISTORY OF PRESENT ILLNESS: PAIN THE PATIENT DESCRIBES THE PAIN... FALL RISK SCREENING: SCREENING :NO FALLS IN THE PAST YEAR TODAY'S VISIT: NOTES: RATES PAIN TODAY 8/10. DESCRIBES PAIN CONSTANT, SHARP, STABBING, ACHING, SHOOTING AND SORE. NOTES AREAS OF PAIN ARE IN KNEES, RIGHT ANKLE, BASE OF NECK AND LOW BACK. IS ALTERANTING ICE AND HEAT. TO PAIN AREAS. SLEEP IS FAIR. NOTES TOPAMAX HAS HELPED HER SLEEP. THIS WAS ORIGINALLY STARTED FOR MIGRAINES. TODAYS WORST AREAS ARE THE LOW BACK AND AND THIS IS MAKING HER REALLY NAUSEATED. REPORTS PAIN MEDS HELP. IS ASKING ABOUT ICY HOT PATCHES PRESCRIPTION. CURRENT MEDICATIONS TAKING PROZAC 20 MG CAPSULE 1 CAPSULE IN THE MORNING ORALLY ONCE A DAY TAKING CYMBALTA 60 MG CAPSULE DELAYED RELEASE PARTICLES 1 CAPSULE ORALLY ONCE A DAY TAKING TOPIRAMATE 50 MG TABLET 1 TABLET ORALLY BEFORE BEDTIME TAKING MAXALT 10 MG TABLET 1 TABLET AT ON SET OF INFANTE, MAY REPEAT X 1 AFTER 2 HOURS ORALLY TWICE A DAY NEEDED, MDD=2 TAKING PANTOPRAZOLE SODIUM 40 MG TABLET DELAYED RELEASE 1 TABLET ORALLY TWICE A DAY TAKING MAGNESIUM 400 MG TABLET 1 TABLET ORALLY ONCE A DAY TAKING SALINE AEROSOL SOLUTION NASAL SPRAY TID PRN TAKING DRISDOL 43104 UNIT CAPSULE 1 CAPSULE ORALLY ONCE A WEEK TAKING MULTIVITAMIN TABLET CHEWABLE ORALLY ONCE DAILY TAKING SM ARTHRITIS PAIN RELIEF 650 MG TABLET EXTENDED RELEASE 2 TABLETS NEEDED ORALLY TAKE 2 TABS Q 2-8 HRS PRN PAIN MDD=6 TAKING FERROUS GLUCONATE 325 (36 FE) MG TABLET 1 TABLET ORALLY ONCE A DAY TAKING CYCLOBENZAPRINE HCL 10 MG TABLET 1 TABLET NEEDED ORALLY AT BEDTIME, NOTES: PAIN CLINIC TAKING BREO ELLIPTA 200-25 MCG/INH AEROSOL POWDER BREATH ACTIVATED 1 PUFF INHALATION ONCE A DAY TAKING INCRUSE ELLIPTA 62.5 MCG/INH AEROSOL POWDER BREATH ACTIVATED 1 PUFF INHALATION ONCE A DAY TAKING XOPENEX HFA AEROSOL EVERY 6 HR NEEDED TAKING SINGULAIR 10 MG TABLET 1 TABLET IN THE EVENING ORALLY ONCE A DAY TAKING FLUTICASONE PROPIONATE 50 MCG/ACT SUSPENSION 1 SPRAY IN EACH NOSTRIL NASALLY TWICE A DAY TAKING LORATADINE 10 MG TABLET 1 TABLET ORALLY ONCE A DAY TAKING PERCOCET 5-325 MG TABLET 1-2 ORALLY EVERY 6 -8 HRS PRN PAIN MDD=6 CHRONIC PAIN TAKING KLONOPIN 0.5 MG TABLET 1/2 TABLET ORALLY TWICE A DAY PRN NOT-TAKING BENADRYL 25 MG CAPSULE 1 CAPSULE NEEDED ORALLY EVERY 8 HRS NEEDED FOR ITCHING MEDICATION LIST REVIEWED AND RECONCILED WITH THE PATIENT PAST MEDICAL HISTORY LT WRIST INJURY RECURRENT SINUSITIS BACK INJURY-2000(WORK)- L3 - 4 DISC HERNIATION - CHRONIC IDRIS PAIN MANAGED BY PAIN CLINIC ASTHMA - FOLLOWED BY PULMONARY [place] VITAMIN D DEFICIENCY ALLERGIES OSTEO NECROSIS BILATERAL KNEES MIGRAINES MULTINODULAR GOITER WITH LARGE MICROCALCIFIC NODES - S/P BIOPSY - BENIGN PER [facility] - REPEAT US 08/2017 RECOMMENDED OBESITY - MANAGED WITH PHENTERIMINE IN THE PAST VITAMIN D DEFICIENCY GERD/SMALL HH PER EGD 2015 ECHO 12/2016 - GRADE 1 LV DIASTOLIC DYSFUNCTION. NORMAL LV SIZE, THICKNESS AND WALL MOTION. EF 70%. POSSIBLE ELEVATED RIGHT VENTRICULAR SYSTOLIC PRESSURE ALLERGIES PENICILLIN (FOR ALLERGIES USE ONLY): HIVES: ALLERGY LEVAQUIN: HIVES,SWELLING: ALLERGY LYRICA: [employer] SWELLING: ALLERGY SUDAFED: HEART RACES: SIDE EFFECTS ALBUTEROL: HEART RACES: SIDE EFFECTS BACTRIM DS: HIVES: ALLERGY SURGICAL HISTORY SINUS 05/24/2012 LT WRIST-TARE 10/02/2012 12/30/1998 LT WRIST-LIGAMENT RECONSTURCTION, ULNA SHORTENING 02/27/2013 RIGHT LEG VERICOSE VEIN SURGERY 11/2014 LEFT LEG NODULE REMOVAL BENIGN 11/2014 UPPER GI 07/2016 HOSPITALIZATION/MAJOR DIAGNOSTIC PROCEDURE 12/30/1998 BRONCHITIS/ASTHMA 11/27 REVIEW OF SYSTEMS REVIEWED BY: PROVIDER: FRANSISCO VASQUEZ . CONSTITUTIONAL: ANY CHANGE IN YOUR MEDICAL CONDITION? YES, ALLERGIC TO BACTRIM; HIVES . CHILLS NO . FEVER NO . INFECTION: DO YOU HAVE NEW INFECTIONS? NO . DO YOU HAVE HISTORY OF MRSA? NO . MUSCULOSKELETAL: ANY NEW PATTERNS OF PAIN OR NUMBNESS? YES, L>R KNEE PAIN, PAIN HAS SPREAD IN LEFT KNEE . GASTROENTEROLOGY: ANY NEW CHANGE IN BOWEL CONTROL? NO . GENITOURINARY: ANY NEW CHANGE IN BLADDER CONTROL? NO . IS THERE A CHANCE YOU COULD BE ? NO . HEMATOLOGY/LYMPH: DO YOU TAKE ANY BLOOD THINNERS? (FOR EXAMPLE- COUMADIN, PLAVIX, AGGRENOX, PLATEL, PRADAXA, OR XARELTO) NO . WHEN WAS YOUR LAST DOSE? DATE: TIME: . NEUROLOGY: HAVE YOU FALLEN IN THE PAST 6 MONTHS? NO . ANY NEW EXTREMITY NUMBNESS OR WEAKNESS? NO . CARDIOLOGY: DO YOU HAVE A PACEMAKER OR DEFIBRILLATOR? NO . RESPIRATORY: HAVE YOU BEEN SICK IN THE PAST WEEK? NO . FEVER NO . FLU LIKE SYMPTOMS? NO . ASTHMA IS SEEING PULMONOLGY AND IS SCHEDULING TO SEE ENT AND , A SLEEP STUDY. . COUGH NO . INTEGUMENTARY: DO YOU HAVE ANY RASHES OR OPEN SORES? NO . ALLERGIC/IMMUNO: ARE YOU ALLERGIC TO SHELLFISH OR IV DYE? NO . ANY NEW ALLERGIES? NO . PSYCHIATRIC: DO YOU HAVE THOUGHTS OF HURTING YOURSELF OR SOMEONE ELSE? NO . ARE YOU ABUSED, NEGLECTED, OR IN AN UNSAFE ENVIRONMENT? NO . ENDOCRINOLOGY: ARE YOU DIABETIC? NO . OTHER: DO YOU NEED ANY PRESCRIPTIONS? YES, PAIN MEDS...TO DISCUSS WITH Josse SIDDIQUI; TRY PAIN PATCH? EVEN JUST ICY HOT, VIT B12? . IF YES, PLEASE LIST: ____ . ANY NEW PROBLEMS WITH YOUR MEDICATIONS? NO . WHEN DID YOU LAST EAT? ____ . WHEN DID YOU LAST DRINK? ____ . WHAT DID YOU LAST DRINK? ____ . NAME OF PERSON DRIVING YOU HOME? ____ . DO YOU HAVE ANY OTHER QUESTIONS OR CONCERNS NO . VITAL SIGNS WT 196 LBS, HT 63 IN, BMI 34.72 INDEX, BP 126/94 MM HG, HR 119 /MIN, RR 18 /MIN, TEMP 98.4 F, OXYGEN SAT % 97%, SAFE IN ENV? (Y/N) Y, NA INITIALS AR 09:15, REVIEWED BY: CONNOR. ASSESSMENTS JOINT PAIN, KNEE - M25.569 (PRIMARY) LOW BACK PAIN - M54.5 CHRONICALLY ON OPIATE THERAPY - Z79.899 PAIN IN RIGHT ANKLE AND JOINTS OF RIGHT FOOT - M25.571 MYALGIA - M79.1 TREATMENT JOINT PAIN, KNEE LAB: COMPREHENSIVE METABOLIC PROFILE GLUCOSE 99 (70-105 - MG/DL) BUN 8 (7-18 - MG/DL) CREATININE 0.81 (0.55-1.02 - MG/DL) GLOMERULAR FILTRATION RATE > 60.0 (>58 - ) SODIUM 144 (136-145 - MEQ/L) POTASSIUM 4.6 (3.5-5.1 - MEQ/L) CHLORIDE 109 (98-107 - MEQ/L) CARBON DIOXIDE 25 (21-32 - MEQ/L) CALCIUM 9.0 (8.5-10.1 - MG/DL) AST/SGOT 10 (15-37 - U/L) ALT/SGPT 20 (12-78 - U/L) ALK PHOS 72 (45-117 - U/L) BILIRUBIN,TOTAL 0.3 (0.2-1.0 - MG/DL) TOTAL PROTEIN 6.7 (6.4-8.2 - GM/DL) ALBUMIN 3.6 (3.2-5.2 - GM/DL) ALB/GLOB RATIO 1.16 (1.00-1.93 - ) LAB: ERYTHROCYTE SEDIMENTATION RATE SED RATE 15 (0-20 - MM/HR) LAB: MAGNESIUM LEVEL MAGNESIUM 1.9 (1.8-2.4 - MG/DL) TRIGGER POINT 3 + FRANSISCO HARDY 03/14/2017 10:17:31 AM > MID AND LOW BACK NOTES: OVER THE COUNTER PAIN PATCHES. CLINICAL NOTES: ISTOP REGISTRY REVIEWED AND DEMNOSTRATES COMPLLIANCE. BRINGS IN MEDICATIONS WHICH IS APPROPRIATE FOR WHAT WAS DISPENSED. RECENT URINE TOXICOLOGY REVIEWED. NO UNAUTHORIZED MEDICATIONS. NO ILLICIT SUBSTANCES AND PRESCRIBED MEDICATIONS WERE PRESENT. PROCEDURE CODES [id number] ESTABILISHED PATIENT [facility] CHARGE DISPOSITION & COMMUNICATION FOLLOW UP AFTER INJECTION (REASON: CHECK AUTH FOR TPI) ELECTRONICALLY SIGNED BY AMERICA WOODY ON 04/03/2017 AT 08:24 AM EDT DISCLAIMER : THIS IS A VISIT SUMMARY EXTRACTED FROM THE [employer] CHART. IT IS NOT A COPY OF THE [employer] PROGRESS NOTE. CHARMAINE
== END ==
LOC: M PAIN 09:00
PROVIDERS: ATTEND Nurse Practitioner Family
DX: M25.569 Pain in unspecified knee (principal); M54.5 Low back pain; M25.571 Pain in right ankle and joints of right foot; M79.1 Myalgia; G89.29 Other chronic pain; G43.009 Migraine without aura, not intractable, without status migrainosus; F32.9 Major depressive disorder, single episode, unspecified; D64.9 Anemia, unspecified; E55.9 Vitamin D deficiency, unspecified; E66.01 Morbid (severe) obesity due to excess calories; J32.9 Chronic sinusitis, unspecified; K21.9 Gastro-esophageal reflux disease without esophagitis; J45.909 Unspecified asthma, uncomplicated; Z79.891 Long term (current) use of opiate analgesic; Z79.899 Other long term (current) drug therapy; Z88.0 Allergy status to penicillin; Z88.1 Allergy status to other antibiotic agents; Z88.8 Allergy status to other drugs, medicaments and biological substances

== ENCOUNTER → 2017-03-27 | Outpatient (CLI) | payer OTHER ==
[2017-03-27 18:26] LABS: ALBUMIN 3.6 GM/DL (3.2-5.2); ALBUMIN/GLOBULIN RATIO 1.16 (1.00-1.93); ALKALINE PHOSPHATASE 72 U/L (45-117); ALT/SGPT 20 U/L (12-78); ANION GAP 10 MEQ/L (8-16); AST/SGOT 10 U/L (15-37); BILIRUBIN,TOTAL 0.3 MG/DL (0.2-1.0); BLOOD UREA NITROGEN 8 MG/DL (7-18); CARBON DIOXIDE LEVEL 25 MEQ/L (21-32); CHLORIDE LEVEL 109 MEQ/L (98-107); CREATININE FOR GFR 0.81 MG/DL (0.55-1.02); GLOMERULAR FILTRATION RATE > 60.0 (>58); GLUCOSE, FASTING 99 MG/DL (70-105); MAGNESIUM LEVEL 1.9 MG/DL (1.8-2.4); POTASSIUM SERUM 4.6 MEQ/L (3.5-5.1); SODIUM LEVEL 144 MEQ/L (136-145); TOTAL PROTEIN 6.7 GM/DL (6.4-8.2)
== END ==
LOC: M WUC 13:20
PROVIDERS: ATTEND Nurse Practitioner Family
DX: M25.569 Pain in unspecified knee (principal)

== ENCOUNTER → 2017-03-28 | Outpatient (CLI) | payer OTHER ==
[~2017-03-28] MED LIST changes: +BUPIVACAINE HCL 0.25% 10 ML VIAL As Ordered ONE; +BUPIVACAINE HCL 0.25% 30 ML VIAL As Ordered ONE; +TRIAMCINOLONE ACETONIDE SUSP 40 MG/ML VIAL (J3301) As Ordered ONE; +diazePAM 5 MG TAB As Ordered ONE; +oxyCODONE 5MG TAB As Ordered ONE
--- NOTE | 2017-04-02 23:50 | ECWPNPC ---
PATIENT NAME: ARLETTE BORJA : 1970 GENDER: FEMALE VISIT DATE: 03/28/2017 DISCHARGE DATE: 03/28/17 1709 VISIT LOCKED DATE TIME: PHYSICIAN: ANA MARIA SALCIDO RESOURCE: ANA MARIA SALCIDO REASON FOR APPOINTMENT 1. TPI HISTORY OF PRESENT ILLNESS HISTORY OF PRESENT ILLNESS: PAIN THE PATIENT DESCRIBES THE PAIN... FALL RISK SCREENING: SCREENING :NO FALLS IN THE PAST YEAR CURRENT MEDICATIONS TAKING PROZAC 20 MG CAPSULE 1 CAPSULE IN THE MORNING ORALLY ONCE A DAY, NOTES: 92903/28/17 TAKING CYMBALTA 60 MG CAPSULE DELAYED RELEASE PARTICLES 1 CAPSULE ORALLY ONCE A DAY, NOTES: 92903/28/17 TAKING TOPIRAMATE 50 MG TABLET 1 TABLET ORALLY BEFORE BEDTIME, NOTES: 202903/27/17 TAKING MAXALT 10 MG TABLET 1 TABLET AT ON SET OF INFANTE, MAY REPEAT X 1 AFTER 2 HOURS ORALLY TWICE A DAY NEEDED, MDD=2, NOTES: LAST WEEK TAKING PANTOPRAZOLE SODIUM 40 MG TABLET DELAYED RELEASE 1 TABLET ORALLY TWICE A DAY, NOTES: 92903/28/17 TAKING MAGNESIUM 400 MG TABLET 1 TABLET ORALLY ONCE A DAY, NOTES: 03/28 TAKING SALINE AEROSOL SOLUTION NASAL SPRAY TID PRN, NOTES: 92903/28/17 TAKING MULTIVITAMIN TABLET CHEWABLE ORALLY ONCE DAILY, NOTES: 92903/28/17 TAKING SM ARTHRITIS PAIN RELIEF 650 MG TABLET EXTENDED RELEASE 2 TABLETS NEEDED ORALLY TAKE 2 TABS Q 2-8 HRS PRN PAIN MDD=6, NOTES: 202903/27/17 TAKING FERROUS GLUCONATE 325 (36 FE) MG TABLET 1 TABLET ORALLY ONCE A DAY, NOTES: 92903/28/17 TAKING CYCLOBENZAPRINE HCL 10 MG TABLET 1 TABLET NEEDED ORALLY AT BEDTIME, NOTES: PAIN CLINIC 92903/28/17 TAKING BREO ELLIPTA 200-25 MCG/INH AEROSOL POWDER BREATH ACTIVATED 1 PUFF INHALATION ONCE A DAY, NOTES: 929 TAKING INCRUSE ELLIPTA 62.5 MCG/INH AEROSOL POWDER BREATH ACTIVATED 1 PUFF INHALATION ONCE A DAY, NOTES: 92903/28/17 TAKING XOPENEX HFA AEROSOL EVERY 6 HR NEEDED, NOTES: LAST 03/27 TAKING SINGULAIR 10 MG TABLET 1 TABLET IN THE EVENING ORALLY ONCE A DAY, NOTES: 03/27 TAKING FLUTICASONE PROPIONATE 50 MCG/ACT SUSPENSION 1 SPRAY IN EACH NOSTRIL NASALLY TWICE A DAY, NOTES: 92903/28/17 TAKING LORATADINE 10 MG TABLET 1 TABLET ORALLY ONCE A DAY, NOTES: 92903/28/17 TAKING PERCOCET 5-325 MG TABLET 1-2 ORALLY EVERY 6 -8 HRS PRN PAIN MDD=6 CHRONIC PAIN, NOTES: 92903/28/17 TAKING KLONOPIN 0.5 MG TABLET 1/2 TABLET ORALLY TWICE A DAY PRN, NOTES: LAST WEEK TAKING DRISDOL 57870 UNIT CAPSULE 1 CAPSULE ORALLY ONCE A WEEK, NOTES: YESTERDAY 03/27/17 NOT-TAKING BENADRYL 25 MG CAPSULE 1 CAPSULE NEEDED ORALLY EVERY 8 HRS NEEDED FOR ITCHING MEDICATION LIST REVIEWED AND RECONCILED WITH THE PATIENT PAST MEDICAL HISTORY LT WRIST INJURY RECURRENT SINUSITIS BACK INJURY-2000(WORK)- L3 - 4 DISC HERNIATION - CHRONIC IDRIS PAIN MANAGED BY PAIN CLINIC ASTHMA - FOLLOWED BY PULMONARY [place] VITAMIN D DEFICIENCY ALLERGIES OSTEO NECROSIS BILATERAL KNEES MIGRAINES MULTINODULAR GOITER WITH LARGE MICROCALCIFIC NODES - S/P BIOPSY - BENIGN PER [facility] - REPEAT US 08/2017 RECOMMENDED OBESITY - MANAGED WITH PHENTERIMINE IN THE PAST VITAMIN D DEFICIENCY GERD/SMALL HH PER EGD 2016 ECHO 12/2016 - GRADE 1 LV DIASTOLIC DYSFUNCTION. NORMAL LV SIZE, THICKNESS AND WALL MOTION. EF 70%. POSSIBLE ELEVATED RIGHT VENTRICULAR SYSTOLIC PRESSURE ALLERGIES PENICILLIN (FOR ALLERGIES USE ONLY): HIVES: ALLERGY LEVAQUIN: HIVES,SWELLING: ALLERGY LYRICA: [employer] SWELLING: ALLERGY SUDAFED: HEART RACES: SIDE EFFECTS ALBUTEROL: HEART RACES: SIDE EFFECTS BACTRIM DS: HIVES: ALLERGY REVIEW OF SYSTEMS REVIEWED BY: PROVIDER: . CONSTITUTIONAL: ANY CHANGE IN YOUR MEDICAL CONDITION? NO . CHILLS NO . FEVER NO . INFECTION: DO YOU HAVE NEW INFECTIONS? NO . DO YOU HAVE HISTORY OF MRSA? NO . MUSCULOSKELETAL: ANY NEW PATTERNS OF PAIN OR NUMBNESS? NO . GASTROENTEROLOGY: ANY NEW CHANGE IN BOWEL CONTROL? NO . GENITOURINARY: ANY NEW CHANGE IN BLADDER CONTROL? NO . IS THERE A CHANCE YOU COULD BE ? NO . HEMATOLOGY/LYMPH: DO YOU TAKE ANY BLOOD THINNERS? (FOR EXAMPLE- COUMADIN, PLAVIX, AGGRENOX, PLATEL, PRADAXA, OR XARELTO) NO . WHEN WAS YOUR LAST DOSE? DATE: TIME: . NEUROLOGY: HAVE YOU FALLEN IN THE PAST 6 MONTHS? NO . ANY NEW EXTREMITY NUMBNESS OR WEAKNESS? NO . CARDIOLOGY: DO YOU HAVE A PACEMAKER OR DEFIBRILLATOR? NO . RESPIRATORY: HAVE YOU BEEN SICK IN THE PAST WEEK? NO . FEVER NO . FLU LIKE SYMPTOMS? NO . COUGH NO . INTEGUMENTARY: DO YOU HAVE ANY RASHES OR OPEN SORES? NO . ALLERGIC/IMMUNO: ARE YOU ALLERGIC TO SHELLFISH OR IV DYE? NO . ANY NEW ALLERGIES? NO . PSYCHIATRIC: DO YOU HAVE THOUGHTS OF HURTING YOURSELF OR SOMEONE ELSE? NO . ARE YOU ABUSED, NEGLECTED, OR IN AN UNSAFE ENVIRONMENT? NO . ENDOCRINOLOGY: ARE YOU DIABETIC? NO . OTHER: DO YOU NEED ANY PRESCRIPTIONS? NO . IF YES, PLEASE LIST: ____ . ANY NEW PROBLEMS WITH YOUR MEDICATIONS? NO . WHEN DID YOU LAST EAT? LAST NIGHT . WHEN DID YOU LAST DRINK? 1300 . WHAT DID YOU LAST DRINK? WATER . NAME OF PERSON DRIVING YOU HOME? SHAUNA . DO YOU HAVE ANY OTHER QUESTIONS OR CONCERNS NO . VITAL SIGNS WT 196 LBS, HT 63 IN, BMI 34.72 INDEX, BP 140/84 MM HG, HR 84 /MIN, RR 18 /MIN, TEMP 97.6 F, OXYGEN SAT % 97%, NA INITIALS SC 15:38, REVIEWED BY: NL. ASSESSMENTS MYALGIA - M79.1 (PRIMARY) PROCEDURES PN TRIGGER POINT INJECTION WITH STEROIDS PRE PROCEDURE DIAGNOSIS 1. MYALGIA 2. PAIN AT BILATERAL LOWER BACK AREA POST PROCEDURE DIAGNOSIS 1. MYALGIA 2. PAIN AT BILATERAL LOWER BACK AREA PROCEDURE TRIGGER POINT INJECTION AT BILATERAL LOWER BACK AREA SURGEON DR. ANA MARIA SALCIDO TOOL REPAIRER NONE ANESTHESIA LOCAL PRE PROCEDURE NOTE THE PATIENT HAS A HISTORY OF CHRONIC PAIN AT THE RIGHT AND LEFT LOWER BACK AREA. I EVALUATE THE PATIENT AND REVIEWED THE CHART. THERE IS EVIDENCE OF BANDS OF TISSUE WITH RESTRICTION OF MOVEMENT AND PRESENCE OF TRIGGER POINT AT THE AFFECTED AREA. I WENT OVER THE RISKS, ALTERNATIVES, AND BENEFITS ASSOCIATED WITH THIS PROCEDURE. THE PATIENT WOULD LIKE TO PROCEED AND GIVE CONSENT TO PERFORMED THE PROCEDURE. THE PATIENT DENIES UNEXPLAINABLE WEIGHT LOSS, FEVER, CHILLS, OR NEW CHANGES IN URINARY OR BOWEL CONTROL DESCRIPTION OF PROCEDURE THE PATIENT WAS BROUGHT TO THE PROCEDURE ROOM AND PLACED IN THE SITTING POSITION. THE AREA WAS CLEANED WITH ALCOHOL. THE PROCEDURE WAS DONE USING ASEPTIC STERILE TECHNIQUE. I CHECKED LATERALITY AND THE LEVEL WHERE THE PROCEDURE WAS GOING TO BE PERFORMED WITH THE PATIENT AND THE SUPPORTING STAFF AT THE MOMENT OF THE TIME OUT IN THE PROCEDURE ROOM. USING A 25-GAUGE NEEDLE, TRIGGER POINTS WERE INJECTED AT THE RIGHT AND LEFT LOWER BACK AREA WITH A TOTAL OF 40 ML OF BUPIVACAINE 0.25% AND KENALOG 40 MG. THERE WAS NO EVIDENCE OF BLOOD, PARESTHESIA OR CEREBROSPINAL FLUID DURING THE PROCEDURE. THE PATIENT WAS SENT TO THE RECOVERY ROOM. THE PATIENT WAS MOVING THE EXTREMITIES AND DOING WELL. THERE WAS NO COMPLICATION DURING THE PROCEDURE POST PROCEDURE NOTE THE PATIENT WILL BE SEEN IN A FOLLOW UP IN THE NEXT FEW WEEKS. INSTRUCTIONS WERE GIVEN, QUESTIONS WERE ANSWERED, AND THE PATIENT EXPRESSED UNDERSTANDING AND AGREES WITH THE PLAN. I, PACO DHALIWAL, DOCUMENTED THE ABOVE INFORMATION ACTING A SCRIBE FOR DR. SALCIDO. I, DR. SALCIDO, HAVE REVIEWED THE ABOVE DOCUMENT, SCRIBED BY PACO DHALIWAL, AND I VERIFY THAT IT IS ACCURATE PROCEDURE CODES 73003 INJ TRIGGER POINT / [facility] [place] DISPOSITION & COMMUNICATION FOLLOW UP 3 WEEKS ELECTRONICALLY SIGNED BY ANA MARIA SALCIDO MD ON 04/02/2017 AT 07:09 PM EDT DISCLAIMER : THIS IS A VISIT SUMMARY EXTRACTED FROM THE [employer] CHART. IT IS NOT A COPY OF THE [employer] PROGRESS NOTE. CHARMAINE
== END ==
LOC: M PAIN 15:15
PROVIDERS: ATTEND Anesthesiology
DX: G89.29 Other chronic pain (principal); M79.1 Myalgia; M54.5 Low back pain; F32.9 Major depressive disorder, single episode, unspecified; J45.909 Unspecified asthma, uncomplicated; D64.9 Anemia, unspecified; E55.9 Vitamin D deficiency, unspecified; E83.42 Hypomagnesemia; K21.9 Gastro-esophageal reflux disease without esophagitis; Z79.891 Long term (current) use of opiate analgesic; Z79.899 Other long term (current) drug therapy; Z88.0 Allergy status to penicillin; Z88.8 Allergy status to other drugs, medicaments and biological substances; Z88.1 Allergy status to other antibiotic agents
CPT/HCPCS: 20552; J3301

== ENCOUNTER → 2017-04-03 | Outpatient (CLI) | payer OTHER ==
[~2017-04-03] MED LIST changes: -BUPIVACAINE HCL 0.25% 10 ML VIAL As Ordered ONE; -BUPIVACAINE HCL 0.25% 30 ML VIAL As Ordered ONE; -TRIAMCINOLONE ACETONIDE SUSP 40 MG/ML VIAL (J3301) As Ordered ONE; -diazePAM 5 MG TAB As Ordered ONE; -oxyCODONE 5MG TAB As Ordered ONE
--- NOTE | 2017-04-08 06:58 | SLEEPHOME ---
DATE OF PROCEDURE: 04/03/2017 ORDERED BY: Dr. Cuellar. INTERPRETATION: Diagnostic home sleep testing was performed due to concern for the obstructive sleep apnea syndrome. For testing, a NOX-T3 respiratory monitoring device was used. Continuous record was made of pulse, oxygen saturation, air flow, chest and abdominal strain, and body position. 10 hours and 59 minutes of data were reviewed. 10 hours and 27 minutes were marked as time in bed. During the interval marked time in bed, there were 69 respiratory events identified of 10 seconds in duration or greater for a respiratory event index of 6.6. The events were mixed. 38 central events and mixed events in total. The patient average pulse rate was 80 beats per minute. Pulse rate ranged 61-110. Baseline saturation was 93%. Desaturations with respiratory events fell to 83%. Testing was performed in both the supine and non-supine positions. There was no consistent positional nature demonstrated. IMPRESSION: Abnormal home sleep testing with repetitive respiratory events and oxygen desaturations to 83% with a respiratory event index of 6.6 is consistent with the obstructive sleep apnea syndrome. RECOMMENDATION: As home testing can under estimate the severity of disease, the patient should be referred for formal in laboratory testing with pressure titration.
== END ==
LOC: M SLEEP HO 10:39
PROVIDERS: ATTEND Internal Medicine
DX: G47.33 Obstructive sleep apnea (adult) (pediatric) (principal)

== ENCOUNTER → 2017-04-11 | Outpatient (CLI) | payer OTHER ==
--- NOTE | 2017-04-21 01:13 | ECWPNPC ---
PATIENT NAME: ARLETTE BORJA : 1970 GENDER: FEMALE VISIT DATE: 04/11/2017 DISCHARGE DATE: 04/11/17 1148 VISIT LOCKED DATE TIME: PHYSICIAN: FRANSISCO SIDDIQUI RESOURCE: FRANSISCO SIDDIQUI REASON FOR APPOINTMENT 1. POST TPI HISTORY OF PRESENT ILLNESS HISTORY OF PRESENT ILLNESS: PAIN THE PATIENT DESCRIBES THE PAIN... FALL RISK SCREENING: SCREENING :NO FALLS IN THE PAST YEAR TODAY'S VISIT: NOTES: RATES PAIN TODAY 5/10. NOTES OVER ALL DISCOMFORT IS NOT INTENSE. STILL HAS [facility] PRIOR TO LAST VISIT.CAN NOT SIT FOR LONG. SLEEP IS STILL AN ISSUE BUT MEDS ARE HELPFUL. HAS GONE FOR MASSAGE. WHICH WAS PAINFUL BUT WAS HELPFUL. . CURRENT MEDICATIONS TAKING PROZAC 20 MG CAPSULE 1 CAPSULE IN THE MORNING ORALLY ONCE A DAY TAKING CYMBALTA 60 MG CAPSULE DELAYED RELEASE PARTICLES 1 CAPSULE ORALLY ONCE A DAY TAKING TOPIRAMATE 50 MG TABLET 1 TABLET ORALLY BEFORE BEDTIME TAKING MAXALT 10 MG TABLET 1 TABLET AT ON SET OF INFANTE, MAY REPEAT X 1 AFTER 2 HOURS ORALLY TWICE A DAY NEEDED, MDD=2 TAKING PANTOPRAZOLE SODIUM 40 MG TABLET DELAYED RELEASE 1 TABLET ORALLY TWICE A DAY TAKING MAGNESIUM 400 MG TABLET 1 TABLET ORALLY ONCE A DAY TAKING SALINE AEROSOL SOLUTION NASAL SPRAY TID PRN TAKING MULTIVITAMIN TABLET CHEWABLE ORALLY ONCE DAILY TAKING SM ARTHRITIS PAIN RELIEF 650 MG TABLET EXTENDED RELEASE 2 TABLETS NEEDED ORALLY TAKE 2 TABS Q 2-8 HRS PRN PAIN MDD=6 TAKING FERROUS GLUCONATE 325 (36 FE) MG TABLET 1 TABLET ORALLY ONCE A DAY TAKING CYCLOBENZAPRINE HCL 10 MG TABLET 1 TABLET NEEDED ORALLY AT BEDTIME TAKING BREO ELLIPTA 200-25 MCG/INH AEROSOL POWDER BREATH ACTIVATED 1 PUFF INHALATION ONCE A DAY TAKING INCRUSE ELLIPTA 62.5 MCG/INH AEROSOL POWDER BREATH ACTIVATED 1 PUFF INHALATION ONCE A DAY TAKING XOPENEX HFA AEROSOL EVERY 6 HR NEEDED TAKING SINGULAIR 10 MG TABLET 1 TABLET IN THE EVENING ORALLY ONCE A DAY TAKING FLUTICASONE PROPIONATE 50 MCG/ACT SUSPENSION 1 SPRAY IN EACH NOSTRIL NASALLY TWICE A DAY TAKING LORATADINE 10 MG TABLET 1 TABLET ORALLY ONCE A DAY TAKING KLONOPIN 0.5 MG TABLET 1/2 TABLET ORALLY TWICE A DAY PRN TAKING DRISDOL 27849 UNIT CAPSULE 1 CAPSULE ORALLY ONCE A WEEK TAKING PERCOCET 5-325 MG TABLET 1-2 ORALLY EVERY 6 -8 HRS PRN PAIN MDD=6 CHRONIC PAIN TAKING WELLBUTRIN XL 150 MG TABLET EXTENDED RELEASE 24 HOUR 1 TABLET IN THE MORNING ORALLY ONCE A DAY NOT-TAKING BENADRYL 25 MG CAPSULE 1 CAPSULE NEEDED ORALLY EVERY 8 HRS NEEDED FOR ITCHING MEDICATION LIST REVIEWED AND RECONCILED WITH THE PATIENT PAST MEDICAL HISTORY LT WRIST INJURY RECURRENT SINUSITIS BACK INJURY-2000(WORK)- L3 - 4 DISC HERNIATION - CHRONIC IDRIS PAIN MANAGED BY PAIN CLINIC ASTHMA - FOLLOWED BY PULMONARY [place] VITAMIN D DEFICIENCY ALLERGIES OSTEO NECROSIS BILATERAL KNEES MIGRAINES MULTINODULAR GOITER WITH LARGE MICROCALCIFIC NODES - S/P BIOPSY - BENIGN PER [facility] - REPEAT US 08/2017 RECOMMENDED OBESITY - MANAGED WITH PHENTERIMINE IN THE PAST VITAMIN D DEFICIENCY GERD/SMALL HH PER EGD 2015 ECHO 12/2016 - GRADE 1 LV DIASTOLIC DYSFUNCTION. NORMAL LV SIZE, THICKNESS AND WALL MOTION. EF 70%. POSSIBLE ELEVATED RIGHT VENTRICULAR SYSTOLIC PRESSURE DEPRESSION ALLERGIES PENICILLIN (FOR ALLERGIES USE ONLY): HIVES: ALLERGY LEVAQUIN: HIVES,SWELLING: ALLERGY LYRICA: [employer] SWELLING: ALLERGY SUDAFED: HEART RACES: SIDE EFFECTS ALBUTEROL: HEART RACES: SIDE EFFECTS BACTRIM DS: HIVES: ALLERGY SURGICAL HISTORY SINUS 05/24/2012 LT WRIST-TARE 10/02/2012 12/30/1998 LT WRIST-LIGAMENT RECONSTURCTION, ULNA SHORTENING 02/27/2013 RIGHT LEG VERICOSE VEIN SURGERY 11/2014 LEFT LEG NODULE REMOVAL BENIGN 11/2014 UPPER GI 07/2016 HOSPITALIZATION/MAJOR DIAGNOSTIC PROCEDURE 12/30/1998 BRONCHITIS/ASTHMA 11/27 REVIEW OF SYSTEMS REVIEWED BY: PROVIDER: FRANSISCO VASQUEZ . CONSTITUTIONAL: ANY CHANGE IN YOUR MEDICAL CONDITION? NO . CHILLS NO . FEVER NO . INFECTION: DO YOU HAVE NEW INFECTIONS? NO . DO YOU HAVE HISTORY OF MRSA? NO . MUSCULOSKELETAL: ANY NEW PATTERNS OF PAIN OR NUMBNESS? NO . JOINT PAIN SAW KNEE SURGEON - OSTEONECROSIS OF KNEES HASN'T IMPROVED. IS NOW A CANDIDATE FOR SURGERY BUT THEY ARE WAITING LONG POSSIBLE . GASTROENTEROLOGY: ANY NEW CHANGE IN BOWEL CONTROL? NO . GENITOURINARY: ANY NEW CHANGE IN BLADDER CONTROL? NO . IS THERE A CHANCE YOU COULD BE ? NO . HEMATOLOGY/LYMPH: DO YOU TAKE ANY BLOOD THINNERS? (FOR EXAMPLE- COUMADIN, PLAVIX, AGGRENOX, PLATEL, PRADAXA, OR XARELTO) NO . WHEN WAS YOUR LAST DOSE? DATE: TIME: . NEUROLOGY: HAVE YOU FALLEN IN THE PAST 6 MONTHS? NO . ANY NEW EXTREMITY NUMBNESS OR WEAKNESS? NO . CARDIOLOGY: DO YOU HAVE A PACEMAKER OR DEFIBRILLATOR? NO . RESPIRATORY: HAVE YOU BEEN SICK IN THE PAST WEEK? NO . FEVER NO . FLU LIKE SYMPTOMS? NO . COUGH NO . INTEGUMENTARY: DO YOU HAVE ANY RASHES OR OPEN SORES? NO . ALLERGIC/IMMUNO: ARE YOU ALLERGIC TO SHELLFISH OR IV DYE? NO . ANY NEW ALLERGIES? NO . PSYCHIATRIC: DO YOU HAVE THOUGHTS OF HURTING YOURSELF OR SOMEONE ELSE? NO . ARE YOU ABUSED, NEGLECTED, OR IN AN UNSAFE ENVIRONMENT? NO . ENDOCRINOLOGY: ARE YOU DIABETIC? NO . OTHER: DO YOU NEED ANY PRESCRIPTIONS? NO . IF YES, PLEASE LIST: ____ . ANY NEW PROBLEMS WITH YOUR MEDICATIONS? NO . WHEN DID YOU LAST EAT? ____ . WHEN DID YOU LAST DRINK? ____ . WHAT DID YOU LAST DRINK? ____ . NAME OF PERSON DRIVING YOU HOME? ____ . DO YOU HAVE ANY OTHER QUESTIONS OR CONCERNS NO . VITAL SIGNS WT 191 LBS, HT 63 IN, BMI 33.83 INDEX, BP 122/71 MM HG, HR 75 /MIN, RR 18 /MIN, TEMP 96.9 F, OXYGEN SAT % 100, REVIEWED BY: EM. EXAMINATION GENERAL EXAMINATION: PSYCHAPPROPRIATE MOOD AND AFFECT , ALERT , ORIENTED X 3 . MUSCULOSKELETAL:MUSCLE STRENGTH TESTING 5/5 BILATERAL UPPER AND LOWER EXTREMITIES. POINT TENDERNESS OVER LUMBAR PARAVERTEBRAL MUSCLES. , TRIGGER POINTS:, ELICITED WITH PALPATION OVER LUMBAR PARAVERTEBRAL MUSCLES AND INTO THE SECRUM. RESTRICTION OF ROM IN THIS AREA. JOINTS:LEFT , KNEE , RIGHT , ANKLE TENDER, WARM TO TOUCH, EDEMATOUS AND WITH LIMITED ROM SECONDARY TO PAIN. ASSESSMENTS CHRONICALLY ON OPIATE THERAPY - Z79.899 (PRIMARY) MYALGIA - M79.1 LUMBAR FACET ARTHROPATHY - M12.88 TREATMENT CHRONICALLY ON OPIATE THERAPY TRIGGER POINT 3 + FRANSISCO HARDY 04/11/2017 11:32:41 AM > LOW BACK BILATERALLY NOTES: START PHYSICAL THERAPY. DO EXERCISES AND STRETCHES. GOOD NUTRITIONCALL WHEN SCRIPTS DUE. PREVENTIVE MEDICINE DISCUSSED PRE PROCEDURE CARE AND PROCEDURE / PT EXPRESSED UNDERSTANDING OF ALL. PROCEDURE CODES FA211 ESTABILISHED PATIENT [facility] CHARGE DISPOSITION & COMMUNICATION FOLLOW UP 1 MONTH ELECTRONICALLY SIGNED BY AMERICA WOODY ON 04/20/2017 AT 09:44 AM EDT DISCLAIMER : THIS IS A VISIT SUMMARY EXTRACTED FROM THE [employer] CHART. IT IS NOT A COPY OF THE [employer] PROGRESS NOTE. CHARMAINE
== END ==
LOC: M PAIN 09:45
PROVIDERS: ATTEND Nurse Practitioner Family
DX: M79.1 Myalgia (principal); M12.88 Other specific arthropathies, not elsewhere classified, other specified site; J45.909 Unspecified asthma, uncomplicated; F32.9 Major depressive disorder, single episode, unspecified; D64.9 Anemia, unspecified; K21.9 Gastro-esophageal reflux disease without esophagitis; E04.1 Nontoxic single thyroid nodule; E55.9 Vitamin D deficiency, unspecified; G89.29 Other chronic pain; G43.009 Migraine without aura, not intractable, without status migrainosus; J32.9 Chronic sinusitis, unspecified; Z88.0 Allergy status to penicillin; Z88.1 Allergy status to other antibiotic agents; Z88.8 Allergy status to other drugs, medicaments and biological substances; Z79.891 Long term (current) use of opiate analgesic; Z79.899 Other long term (current) drug therapy

== ENCOUNTER → 2017-05-01 | Outpatient (CLI) | payer OTHER ==
[~2017-05-01] MED LIST changes: +BUPIVACAINE HCL 0.25% 10 ML VIAL As Ordered ONE; +BUPIVACAINE HCL 0.25% 30 ML VIAL As Ordered ONE; +TRIAMCINOLONE ACETONIDE SUSP 40 MG/ML VIAL (J3301) As Ordered ONE; +diazePAM 5 MG TAB As Ordered ONE; +oxyCODONE 5MG TAB As Ordered ONE
--- NOTE | 2017-05-02 00:45 | ECWPNPC ---
PATIENT NAME: ARLETTE BORJA : 1970 GENDER: FEMALE VISIT DATE: 05/01/2017 DISCHARGE DATE: 05/01/171533 VISIT LOCKED DATE TIME: PHYSICIAN: ANA MARIA SALCIDO RESOURCE: ANA MARIA SALCIDO REASON FOR APPOINTMENT 1. TPI- COC[place],LOW BACK HISTORY OF PRESENT ILLNESS HISTORY OF PRESENT ILLNESS: PAIN THE PATIENT DESCRIBES THE PAIN... FALL RISK SCREENING: SCREENING :NO FALLS IN THE PAST YEAR CURRENT MEDICATIONS TAKING CYMBALTA 60 MG CAPSULE DELAYED RELEASE PARTICLES 1 CAPSULE ORALLY ONCE A DAY, NOTES: 05/01/17929 TAKING MAXALT 10 MG TABLET 1 TABLET AT ON SET OF INFANTE, MAY REPEAT X 1 AFTER 2 HOURS ORALLY TWICE A DAY NEEDED, MDD=2, NOTES: NONE LATELY TAKING PANTOPRAZOLE SODIUM 40 MG TABLET DELAYED RELEASE 1 TABLET ORALLY TWICE A DAY, NOTES: 05/01/17929 TAKING MAGNESIUM 400 MG TABLET 1 TABLET ORALLY ONCE A DAY, NOTES: 05/01/17929 TAKING SALINE AEROSOL SOLUTION NASAL SPRAY TID PRN, NOTES: 05/01/17929 TAKING MULTIVITAMIN TABLET CHEWABLE ORALLY ONCE DAILY, NOTES: 05/01/17929 TAKING SM ARTHRITIS PAIN RELIEF 650 MG TABLET EXTENDED RELEASE 2 TABLETS NEEDED ORALLY TAKE 2 TABS Q 2-8 HRS PRN PAIN MDD=6, NOTES: NONE RECENTLY TAKING FERROUS GLUCONATE 325 (36 FE) MG TABLET 1 TABLET ORALLY ONCE A DAY, NOTES: 05/01/17929 TAKING CYCLOBENZAPRINE HCL 10 MG TABLET 1 TABLET NEEDED ORALLY AT BEDTIME, NOTES: NONE LATELY TAKING BREO ELLIPTA 200-25 MCG/INH AEROSOL POWDER BREATH ACTIVATED 1 PUFF INHALATION ONCE A DAY, NOTES: 05/01/17929 TAKING INCRUSE ELLIPTA 62.5 MCG/INH AEROSOL POWDER BREATH ACTIVATED 1 PUFF INHALATION ONCE A DAY, NOTES: 05/01/17929 TAKING XOPENEX HFA AEROSOL EVERY 6 HR NEEDED, NOTES: 04/30/172029 TAKING SINGULAIR 10 MG TABLET 1 TABLET IN THE EVENING ORALLY ONCE A DAY, NOTES: 04/30/172029 TAKING FLUTICASONE PROPIONATE 50 MCG/ACT SUSPENSION 1 SPRAY IN EACH NOSTRIL NASALLY TWICE A DAY, NOTES: 05/01/17929 TAKING LORATADINE 10 MG TABLET 1 TABLET ORALLY ONCE A DAY, NOTES: 05/01/17 0930 TAKING KLONOPIN 0.5 MG TABLET 1/2 TABLET ORALLY TWICE A DAY PRN, NOTES: 04/30/17 1600 TAKING DRISDOL 71366 UNIT CAPSULE 1 CAPSULE ORALLY ONCE A WEEK, NOTES: LAST WEEK TAKING PERCOCET 5-325 MG TABLET 1-2 ORALLY EVERY 6 -8 HRS PRN PAIN MDD=6 CHRONIC PAIN, NOTES: 04/30/17 1600 TAKING WELLBUTRIN XL 150 MG TABLET EXTENDED RELEASE 24 HOUR 1 TABLET IN THE MORNING ORALLY ONCE A DAY, NOTES: 05/01/17 0930 TAKING TOPIRAMATE 50 MG TABLET 1 TABLET ORALLY BEFORE BEDTIME, NOTES: 04/30/17 2030 NOT-TAKING PROZAC 20 MG CAPSULE 1 CAPSULE IN THE MORNING ORALLY ONCE A DAY NOT-TAKING BENADRYL 25 MG CAPSULE 1 CAPSULE NEEDED ORALLY EVERY 8 HRS NEEDED FOR ITCHING MEDICATION LIST REVIEWED AND RECONCILED WITH THE PATIENT PAST MEDICAL HISTORY LT WRIST INJURY RECURRENT SINUSITIS BACK INJURY-2000(WORK)- L3 - 4 DISC HERNIATION - CHRONIC IRDIS PAIN MANAGED BY PAIN CLINIC ASTHMA - FOLLOWED BY PULMONARY [place] VITAMIN D DEFICIENCY ALLERGIES OSTEO NECROSIS BILATERAL KNEES MIGRAINES MULTINODULAR GOITER WITH LARGE MICROCALCIFIC NODES - S/P BIOPSY - BENIGN PER [facility] - REPEAT US 08/2017 RECOMMENDED OBESITY - MANAGED WITH PHENTERIMINE IN THE PAST VITAMIN D DEFICIENCY GERD/SMALL HH PER EGD 2016 ECHO 12/2016 - GRADE 1 LV DIASTOLIC DYSFUNCTION. NORMAL LV SIZE, THICKNESS AND WALL MOTION. EF 70%. POSSIBLE ELEVATED RIGHT VENTRICULAR SYSTOLIC PRESSURE DEPRESSION ALLERGIES PENICILLIN (FOR ALLERGIES USE ONLY): HIVES: ALLERGY LEVAQUIN: HIVES,SWELLING: ALLERGY LYRICA: [employer] SWELLING: ALLERGY SUDAFED: HEART RACES: SIDE EFFECTS ALBUTEROL: HEART RACES: SIDE EFFECTS BACTRIM DS: HIVES: ALLERGY SURGICAL HISTORY SINUS 05/24/2012 LT WRIST-TARE 10/02/2012 12/30/1998 LT WRIST-LIGAMENT RECONSTURCTION, ULNA SHORTENING 02/27/2013 RIGHT LEG VERICOSE VEIN SURGERY 11/2014 LEFT LEG NODULE REMOVAL BENIGN 11/2014 UPPER GI 07/2016 HOSPITALIZATION/MAJOR DIAGNOSTIC PROCEDURE 12/30/1998 BRONCHITIS/ASTHMA 11/27 REVIEW OF SYSTEMS REVIEWED BY: PROVIDER: . CONSTITUTIONAL: ANY CHANGE IN YOUR MEDICAL CONDITION? NO . CHILLS NO . FEVER NO . INFECTION: DO YOU HAVE NEW INFECTIONS? NO . DO YOU HAVE HISTORY OF MRSA? NO . MUSCULOSKELETAL: ANY NEW PATTERNS OF PAIN OR NUMBNESS? NO . GASTROENTEROLOGY: ANY NEW CHANGE IN BOWEL CONTROL? NO . GENITOURINARY: ANY NEW CHANGE IN BLADDER CONTROL? NO . IS THERE A CHANCE YOU COULD BE ? NO . HEMATOLOGY/LYMPH: DO YOU TAKE ANY BLOOD THINNERS? (FOR EXAMPLE- COUMADIN, PLAVIX, AGGRENOX, PLATEL, PRADAXA, OR XARELTO) NO . WHEN WAS YOUR LAST DOSE? DATE: TIME: . NEUROLOGY: HAVE YOU FALLEN IN THE PAST 6 MONTHS? NO . ANY NEW EXTREMITY NUMBNESS OR WEAKNESS? NO . CARDIOLOGY: DO YOU HAVE A PACEMAKER OR DEFIBRILLATOR? NO . RESPIRATORY: HAVE YOU BEEN SICK IN THE PAST WEEK? NO . FEVER NO . FLU LIKE SYMPTOMS? NO . COUGH NO . INTEGUMENTARY: DO YOU HAVE ANY RASHES OR OPEN SORES? NO . ALLERGIC/IMMUNO: ARE YOU ALLERGIC TO SHELLFISH OR IV DYE? NO . ANY NEW ALLERGIES? NO . PSYCHIATRIC: DO YOU HAVE THOUGHTS OF HURTING YOURSELF OR SOMEONE ELSE? NO . ARE YOU ABUSED, NEGLECTED, OR IN AN UNSAFE ENVIRONMENT? NO . ENDOCRINOLOGY: ARE YOU DIABETIC? NO . OTHER: DO YOU NEED ANY PRESCRIPTIONS? YES, PERCOSET . IF YES, PLEASE LIST: ____ . ANY NEW PROBLEMS WITH YOUR MEDICATIONS? NO . WHEN DID YOU LAST EAT? 04-30- PM . WHEN DID YOU LAST DRINK? 05-01-17 1000 . WHAT DID YOU LAST DRINK? WATER . NAME OF PERSON DRIVING YOU HOME? SHAUNA . VITAL SIGNS WT 190 LBS, HT 63 IN, BMI 33.65 INDEX, BP 131/88 MM HG, HR 71 /MIN, RR 18 /MIN, TEMP 97.6 F, OXYGEN SAT % 100%, NA INITIALS SC 13:24, REVIEWED BY: CM. ASSESSMENTS MYALGIA - M79.1 (PRIMARY) PROCEDURES PN TRIGGER POINT INJECTION WITH STEROIDS PRE PROCEDURE DIAGNOSIS 1. MYALGIA 2. PAIN AT BILATERAL LOWER BACK AREA POST PROCEDURE DIAGNOSIS 1. MYALGIA 2. PAIN AT BILATERAL LOWER BACK AREA PROCEDURE TRIGGER POINT INJECTION AT BILATERAL LOWER BACK AREA SURGEON DR. ANA MARIA SALCIDO DOMESTIC HELPER NONE ANESTHESIA LOCAL PRE PROCEDURE NOTE THE PATIENT HAS A HISTORY OF CHRONIC PAIN AT THE RIGHT AND LEFT LOWER BACK AREA. I EVALUATE THE PATIENT AND REVIEWED THE CHART. THERE IS EVIDENCE OF BANDS OF TISSUE WITH RESTRICTION OF MOVEMENT AND PRESENCE OF TRIGGER POINT AT THE AFFECTED AREA. I WENT OVER THE RISKS, ALTERNATIVES, AND BENEFITS ASSOCIATED WITH THIS PROCEDURE. THE PATIENT WOULD LIKE TO PROCEED AND GIVE CONSENT TO PERFORMED THE PROCEDURE. THE PATIENT DENIES UNEXPLAINABLE WEIGHT LOSS, FEVER, CHILLS, OR NEW CHANGES IN URINARY OR BOWEL CONTROL DESCRIPTION OF PROCEDURE THE PATIENT WAS BROUGHT TO THE PROCEDURE ROOM AND PLACED IN THE SITTING POSITION. THE AREA WAS CLEANED WITH ALCOHOL. THE PROCEDURE WAS DONE USING ASEPTIC STERILE TECHNIQUE. I CHECKED LATERALITY AND THE LEVEL WHERE THE PROCEDURE WAS GOING TO BE PERFORMED WITH THE PATIENT AND THE SUPPORTING STAFF AT THE MOMENT OF THE TIME OUT IN THE PROCEDURE ROOM. USING A 25-GAUGE NEEDLE, TRIGGER POINTS WERE INJECTED AT THE RIGHT AND LEFT LOWER BACK AREA WITH A TOTAL OF 40 ML OF BUPIVACAINE 0.25% AND KENALOG 40 MG. THERE WAS NO EVIDENCE OF BLOOD, PARESTHESIA OR CEREBROSPINAL FLUID DURING THE PROCEDURE. THE PATIENT WAS SENT TO THE RECOVERY ROOM. THE PATIENT WAS MOVING THE EXTREMITIES AND DOING WELL. THERE WAS NO COMPLICATION DURING THE PROCEDURE POST PROCEDURE NOTE THE PATIENT WILL BE SEEN IN A FOLLOW UP IN THE NEXT FEW WEEKS. INSTRUCTIONS WERE GIVEN, QUESTIONS WERE ANSWERED, AND THE PATIENT EXPRESSED UNDERSTANDING AND AGREES WITH THE PLAN. I, PACO DHALIWAL, DOCUMENTED THE ABOVE INFORMATION ACTING A SCRIBE FOR DR. SALCIDO. I, DR. SALCIDO, HAVE REVIEWED THE ABOVE DOCUMENT, SCRIBED BY PACO DHALIWAL, AND I VERIFY THAT IT IS ACCURATE PROCEDURE CODES 08816 INJ TRIGGER POINT / [facility] [place] COMMUNICATION FOLLOW UP 3 WEEKS ELECTRONICALLY SIGNED BY ANA MARIA SALCIDO MD ON 05/01/2017 AT 06:03 PM EDT DISCLAIMER : THIS IS A VISIT SUMMARY EXTRACTED FROM THE [employer] CHART. IT IS NOT A COPY OF THE [employer] PROGRESS NOTE. MTDD
== END ==
LOC: M PAIN 13:15
PROVIDERS: ATTEND Anesthesiology
DX: G89.29 Other chronic pain (principal); M79.1 Myalgia; M54.5 Low back pain; Z79.891 Long term (current) use of opiate analgesic; Z79.899 Other long term (current) drug therapy; Z88.0 Allergy status to penicillin; Z88.8 Allergy status to other drugs, medicaments and biological substances; Z88.1 Allergy status to other antibiotic agents
CPT/HCPCS: 20552; J3301

== ENCOUNTER → 2017-08-11 | Outpatient (CLI) | payer OTHER | LOC: M PAIN 13:30 | DX: M54.6 Pain in thoracic spine (principal); M54.5 Low back pain; M53.3 Sacrococcygeal disorders, not elsewhere classified; M12.88 Other specific arthropathies, not elsewhere classified, other specified site; M79.1 Myalgia; J45.909 Unspecified asthma, uncomplicated; G43.019 Migraine without aura, intractable, without status migrainosus; E66.9 Obesity, unspecified; Z68.35 Body mass index [BMI] 35.0-35.9, adult; K21.9 Gastro-esophageal reflux disease without esophagitis; F32.9 Major depressive disorder, single episode, unspecified; G47.30 Sleep apnea, unspecified; Z88.0 Allergy status to penicillin; Z88.1 Allergy status to other antibiotic agents; Z88.8 Allergy status to other drugs, medicaments and biological substances; Z79.51 Long term (current) use of inhaled steroids; Z79.891 Long term (current) use of opiate analgesic; Z79.899 Other long term (current) drug therapy | CPT/HCPCS: G0463 ==

== ENCOUNTER → 2017-09-13 | Outpatient (CLI) | payer OTHER ==
[~2017-09-13] MED LIST changes: -ALBU17IN INH; -ALBU83IN INH; +BUPIVACAINE HCL 0.25% 10 ML VIAL As Ordered; -BUPIVACAINE HCL 0.25% 10 ML VIAL As Ordered ONE; +BUPIVACAINE HCL 0.25% 30 ML VIAL As Ordered; -BUPIVACAINE HCL 0.25% 30 ML VIAL As Ordered ONE; -CLAR10CA3 PO; -CYMB1CAP5 PO; -CYMB60CA3 PO; -DAYP600T PO; -DICL50TA2 PO; -DOXY100C PO; -DULO30CA PO; -FLON1SPR; -GLUC500T53 PO; -IBUP-1114 PO; -IRON65TA PO; -LEVA1.256 INH; -LIDO1OIN2 TOP; -LIDO5DIS41 TD; -MAGN400T2 PO; -MULTCAP11 PO; -NABU750T PO; -NEXI40CA PO; -PERC5TAB12 PO; -PRED10PA PO; -PRED10TA PO; -PRED20TAB PO; -SING10TA32 PO; -SPIR1CAP INH; -SYMB16INH INH; -THEO1CAP4 PO; +TRIAMCINOLONE ACETONIDE SUSP 40 MG/ML VIAL (J3301) As Ordered; -TRIAMCINOLONE ACETONIDE SUSP 40 MG/ML VIAL (J3301) As Ordered ONE; -VITA100066 PO; -VITMTA PO; +diazePAM 5 MG TAB As Ordered; -diazePAM 5 MG TAB As Ordered ONE; -flexeril PO; +oxyCODONE 5MG TAB As Ordered; -oxyCODONE 5MG TAB As Ordered ONE
== END ==
LOC: M PAIN 13:15
DX: G89.29 Other chronic pain (principal); M54.5 Low back pain; M79.1 Myalgia; J45.909 Unspecified asthma, uncomplicated; G43.909 Migraine, unspecified, not intractable, without status migrainosus; K21.9 Gastro-esophageal reflux disease without esophagitis; F32.9 Major depressive disorder, single episode, unspecified; E66.9 Obesity, unspecified; Z68.35 Body mass index [BMI] 35.0-35.9, adult; G47.30 Sleep apnea, unspecified; L23.0 Allergic contact dermatitis due to metals; Z79.51 Long term (current) use of inhaled steroids; Z79.891 Long term (current) use of opiate analgesic; Z79.899 Other long term (current) drug therapy; Z88.0 Allergy status to penicillin; Z88.8 Allergy status to other drugs, medicaments and biological substances
CPT/HCPCS: J3301

== ENCOUNTER → 2017-10-13 | Outpatient (REF) | payer OTHER | LOC: M LAB REF 12:16 | DX: E04.2 Nontoxic multinodular goiter (principal) ==

== ENCOUNTER → 2017-10-19 | Outpatient (CLI) | payer OTHER ==
[2017-10-19 17:35] LABS: BASO % 0.5 % (0.0-1.0); EOS % 0.7 % (0.0-3.0); HEMATOCRIT 39.1 % (36.0-47.0); HEMOGLOBIN 12.6 g/dl (12.0-16.0); IMMATURE GRANULOCYTE % 0.5 % (0-3.0); LYMPH # 1.5 10^3/uL (1.5-4.5); LYMPH % 35.3 % (24.0-44.0); MEAN CORPUSCULAR HEMOGLOBIN 26.7 pg (27.0-33.0); MEAN CORPUSCULAR HGB CONC 32.2 g/dl (32.0-36.5); MEAN CORPUSCULAR VOLUME 82.8 fl (80.0-96.0); MONO # 0.5 10^3/uL (0.0-0.8); MONO % 10.8 % (0.0-5.0); NEUTROPHILS # 2.2 10^3/uL (1.8-7.7); NEUTROPHILS % 52.2 % (36.0-66.0); PLATELET COUNT, AUTOMATED 368 10^3/uL (150-450); RED BLOOD COUNT 4.72 10^6/uL (4.00-5.40); RED CELL DISTRIBUTION WIDTH 13.9 % (11.5-14.5); WHITE BLOOD COUNT 4.2 10^3/uL (4.0-10.0)
[2017-10-19 18:05] LABS: ESTIMATED AVERAGE GLUCOSE 120 MG/DL (60-110); HEMOGLOBIN A1c 5.8 %
[2017-10-19 18:24] LABS: ALBUMIN 3.9 GM/DL (3.2-5.2); ALBUMIN/GLOBULIN RATIO 1.22 (1.00-1.93); ALKALINE PHOSPHATASE 90 U/L (45-117); ALT/SGPT 24 U/L (12-78); ANION GAP 7 MEQ/L (8-16); AST/SGOT 11 U/L (7-37); BILIRUBIN,TOTAL 0.4 MG/DL (0.2-1.0); BLOOD UREA NITROGEN 15 MG/DL (7-18); CALCIUM LEVEL 8.9 MG/DL (8.5-10.1); CARBON DIOXIDE LEVEL 27 MEQ/L (21-32); CHLORIDE LEVEL 107 MEQ/L (98-107); CHOLESTEROL LEVEL 185 MG/DL (<200); CHOLESTEROL RISK RATIO 2.176 (<5); CREATININE FOR GFR 0.75 MG/DL (0.55-1.30); GLOMERULAR FILTRATION RATE > 60.0 (>58); GLUCOSE, FASTING 84 MG/DL (70-100); HDL CHOLESTEROL 85 MG/DL (>40); IRON (FE) 42 UG/DL (50-170); LDL CHOLESTEROL 78.6 MG/DL (<100); NON-HDL-C 100 MG/DL; PERCENT SATURATION 10.9 % (13.2-45.0); POTASSIUM SERUM 3.5 MEQ/L (3.5-5.1); SODIUM LEVEL 141 MEQ/L (136-145); TOTAL IRON BINDING CAPACITY 386 UG/DL (250-450); TOTAL PROTEIN 7.1 GM/DL (6.4-8.2); TRIGLYCERIDES LEVEL 107 MG/DL (<150)
[2017-10-19 18:29] LABS: TOTAL 25(OH) VITAMIN D 34.4 NG/ML (30.0-100.0)
[2017-10-21 08:09] LABS: TRANSFERRIN 291 mg/dL (200-370)
== END ==
LOC: M LAB 16:18
DX: Z51.81 Encounter for therapeutic drug level monitoring (principal); Z79.899 Other long term (current) drug therapy
CPT/HCPCS: 80053

== ENCOUNTER → 2017-10-19 | Outpatient (CLI) | payer OTHER | LOC: M PAIN 14:15 | DX: M79.1 Myalgia (principal); M12.88 Other specific arthropathies, not elsewhere classified, other specified site; F32.9 Major depressive disorder, single episode, unspecified; J45.909 Unspecified asthma, uncomplicated; Z79.891 Long term (current) use of opiate analgesic; Z79.899 Other long term (current) drug therapy; Z88.0 Allergy status to penicillin; Z91.048 Other nonmedicinal substance allergy status; Z88.8 Allergy status to other drugs, medicaments and biological substances | CPT/HCPCS: G0463 ==

== ENCOUNTER → 2017-11-01 | Outpatient (CLI) | payer OTHER | LOC: M WHC 10:52 | DX: Z12.31 Encounter for screening mammogram for malignant neoplasm of breast (principal) | CPT/HCPCS: 77067 ==

== ENCOUNTER → 2017-11-01 | Outpatient (REF) | payer OTHER | LOC: M SFHCWAGY 11:08 | DX: Z12.4 Encounter for screening for malignant neoplasm of cervix (principal) | CPT/HCPCS: 88142 ==

== ENCOUNTER → 2017-11-09 | Outpatient (CLI) | payer OTHER | LOC: M WHC 10:34 | DX: R10.2 Pelvic and perineal pain (principal) | CPT/HCPCS: 76830 ==

== ENCOUNTER → 2017-12-27 | Outpatient (CLI) | payer OTHER | LOC: M PAIN 09:15 | DX: M79.1 Myalgia (principal); M12.88 Other specific arthropathies, not elsewhere classified, other specified site; J45.909 Unspecified asthma, uncomplicated; G43.909 Migraine, unspecified, not intractable, without status migrainosus; K21.9 Gastro-esophageal reflux disease without esophagitis; F32.9 Major depressive disorder, single episode, unspecified; G47.30 Sleep apnea, unspecified; Z79.51 Long term (current) use of inhaled steroids; Z79.891 Long term (current) use of opiate analgesic; Z79.899 Other long term (current) drug therapy; Z88.0 Allergy status to penicillin; Z88.1 Allergy status to other antibiotic agents; Z88.8 Allergy status to other drugs, medicaments and biological substances; Z91.09 Other allergy status, other than to drugs and biological substances | CPT/HCPCS: G0463 ==

== ENCOUNTER → 2017-12-27 | Outpatient (CLI) | payer OTHER | LOC: M RAD 10:59 | DX: T18.2XXA Foreign body in stomach, initial encounter (principal); X58.XXXA Exposure to other specified factors, initial encounter; Y92.89 Other specified places as the place of occurrence of the external cause | CPT/HCPCS: 74018 ==

== ENCOUNTER → 2018-01-16 | Outpatient (CLI) | payer OTHER ==
[~2018-01-16] MED LIST changes: -BUPIVACAINE HCL 0.25% 10 ML VIAL As Ordered; +ISOVUE-M 300 61% 15ML VIAL (Q9967) As Ordered; +LIDOCAINE 1% SDV INJ 30 ML VIAL As Ordered; -TRIAMCINOLONE ACETONIDE SUSP 40 MG/ML VIAL (J3301) As Ordered; -diazePAM 5 MG TAB As Ordered; -oxyCODONE 5MG TAB As Ordered
== END ==
LOC: M PAIN 08:45
DX: G89.29 Other chronic pain (principal); M47.816 Spondylosis without myelopathy or radiculopathy, lumbar region; M47.817 Spondylosis without myelopathy or radiculopathy, lumbosacral region; J45.909 Unspecified asthma, uncomplicated; E55.9 Vitamin D deficiency, unspecified; G43.909 Migraine, unspecified, not intractable, without status migrainosus; E04.2 Nontoxic multinodular goiter; E66.9 Obesity, unspecified; Z68.36 Body mass index [BMI] 36.0-36.9, adult; K21.9 Gastro-esophageal reflux disease without esophagitis; F32.9 Major depressive disorder, single episode, unspecified; G47.30 Sleep apnea, unspecified; Z79.891 Long term (current) use of opiate analgesic; Z79.899 Other long term (current) drug therapy; Z88.0 Allergy status to penicillin; Z88.1 Allergy status to other antibiotic agents; Z88.8 Allergy status to other drugs, medicaments and biological substances; Z91.048 Other nonmedicinal substance allergy status
CPT/HCPCS: Q9967

== ENCOUNTER → 2018-01-31 | Outpatient (CLI) | payer OTHER | LOC: M PAIN 10:30 | DX: M79.1 Myalgia (principal); M12.88 Other specific arthropathies, not elsewhere classified, other specified site; E55.9 Vitamin D deficiency, unspecified; F32.9 Major depressive disorder, single episode, unspecified; G43.909 Migraine, unspecified, not intractable, without status migrainosus; Z79.891 Long term (current) use of opiate analgesic; Z79.899 Other long term (current) drug therapy; Z88.0 Allergy status to penicillin; Z88.8 Allergy status to other drugs, medicaments and biological substances | CPT/HCPCS: G0463 ==

== ENCOUNTER → 2018-02-22 | Outpatient (CLI) | payer OTHER | LOC: M PAIN 10:15 | DX: G89.29 Other chronic pain (principal); M47.816 Spondylosis without myelopathy or radiculopathy, lumbar region; M47.817 Spondylosis without myelopathy or radiculopathy, lumbosacral region; J32.9 Chronic sinusitis, unspecified; J45.909 Unspecified asthma, uncomplicated; E55.9 Vitamin D deficiency, unspecified; G43.909 Migraine, unspecified, not intractable, without status migrainosus; E04.2 Nontoxic multinodular goiter; E66.9 Obesity, unspecified; K21.9 Gastro-esophageal reflux disease without esophagitis; K44.9 Diaphragmatic hernia without obstruction or gangrene; F32.9 Major depressive disorder, single episode, unspecified; G47.30 Sleep apnea, unspecified; Z79.891 Long term (current) use of opiate analgesic; Z79.899 Other long term (current) drug therapy; Z88.0 Allergy status to penicillin; Z88.1 Allergy status to other antibiotic agents; Z88.8 Allergy status to other drugs, medicaments and biological substances; Z91.048 Other nonmedicinal substance allergy status | CPT/HCPCS: Q9967 ==

== ENCOUNTER → 2018-03-06 | Outpatient (CLI) | payer OTHER | LOC: M ADAMS 16:33 | DX: J45.20 Mild intermittent asthma, uncomplicated (principal) | CPT/HCPCS: 71046 ==

== ENCOUNTER → 2018-03-06 | Outpatient (REF) | payer OTHER ==
[2018-03-06 19:41] LABS: FREE T4 0.81 NG/DL (0.76-1.46); THYROID STIMULATING HORMONE 0.244 uIU/ML (0.358-3.740)
[2018-03-06 19:41] LABS: MAGNESIUM LEVEL 1.8 MG/DL (1.8-2.4)
== END ==
LOC: M SFHCADAM 16:29
DX: R53.82 Chronic fatigue, unspecified (principal); R63.5 Abnormal weight gain; G43.909 Migraine, unspecified, not intractable, without status migrainosus
CPT/HCPCS: 83735

== ENCOUNTER → 2018-03-08 | Outpatient (CLI) | payer OTHER | LOC: M PAIN 10:15 | DX: M79.1 Myalgia (principal); M12.88 Other specific arthropathies, not elsewhere classified, other specified site; J45.909 Unspecified asthma, uncomplicated; G43.909 Migraine, unspecified, not intractable, without status migrainosus; K21.9 Gastro-esophageal reflux disease without esophagitis; F32.9 Major depressive disorder, single episode, unspecified; G47.33 Obstructive sleep apnea (adult) (pediatric); E66.01 Morbid (severe) obesity due to excess calories; Z68.36 Body mass index [BMI] 36.0-36.9, adult; Z79.51 Long term (current) use of inhaled steroids; Z79.891 Long term (current) use of opiate analgesic; Z79.899 Other long term (current) drug therapy; Z88.0 Allergy status to penicillin; Z88.1 Allergy status to other antibiotic agents; Z88.8 Allergy status to other drugs, medicaments and biological substances; Z91.09 Other allergy status, other than to drugs and biological substances | CPT/HCPCS: G0463 ==

== ENCOUNTER → 2018-03-09 | Outpatient (REF) | payer OTHER | LOC: M SFHCPLAZ 14:59 | DX: R79.89 Other specified abnormal findings of blood chemistry (principal) ==

== ENCOUNTER → 2018-03-09 | Outpatient (REF) | payer OTHER ==
[2018-03-09 20:04] LABS: FREE T4 0.86 NG/DL (0.76-1.46); THYROID STIMULATING HORMONE 0.254 uIU/ML (0.358-3.740)
[2018-03-09 20:06] LABS: TOTAL T3 138.9 NG/DL (60.0-181.0)
== END ==
LOC: M LABDRWAD 19:21
DX: R79.89 Other specified abnormal findings of blood chemistry (principal)
CPT/HCPCS: 84443

== ENCOUNTER → 2018-03-26 | Outpatient (CLI) | payer OTHER ==
[~2018-03-26] MED LIST changes: -ISOVUE-M 300 61% 15ML VIAL (Q9967) As Ordered; +TRIAMCINOLONE ACETONIDE SUSP 40 MG/ML VIAL (J3301) As Ordered
== END ==
LOC: M PAIN 13:15
DX: G89.29 Other chronic pain (principal); M47.816 Spondylosis without myelopathy or radiculopathy, lumbar region; M47.817 Spondylosis without myelopathy or radiculopathy, lumbosacral region; J45.909 Unspecified asthma, uncomplicated; M17.0 Bilateral primary osteoarthritis of knee; G43.909 Migraine, unspecified, not intractable, without status migrainosus; K21.9 Gastro-esophageal reflux disease without esophagitis; F32.9 Major depressive disorder, single episode, unspecified; G47.33 Obstructive sleep apnea (adult) (pediatric); E66.01 Morbid (severe) obesity due to excess calories; Z79.51 Long term (current) use of inhaled steroids; Z79.891 Long term (current) use of opiate analgesic; Z79.899 Other long term (current) drug therapy; Z88.0 Allergy status to penicillin; Z88.1 Allergy status to other antibiotic agents; Z88.8 Allergy status to other drugs, medicaments and biological substances; Z91.09 Other allergy status, other than to drugs and biological substances; Z68.36 Body mass index [BMI] 36.0-36.9, adult
CPT/HCPCS: J3301

== ENCOUNTER → 2018-04-19 | Outpatient (CLI) | payer OTHER | LOC: M PAIN 11:45 | DX: M47.816 Spondylosis without myelopathy or radiculopathy, lumbar region (principal); M47.817 Spondylosis without myelopathy or radiculopathy, lumbosacral region; J45.909 Unspecified asthma, uncomplicated; G43.909 Migraine, unspecified, not intractable, without status migrainosus; K21.9 Gastro-esophageal reflux disease without esophagitis; F32.9 Major depressive disorder, single episode, unspecified; G47.33 Obstructive sleep apnea (adult) (pediatric); K44.9 Diaphragmatic hernia without obstruction or gangrene; Z79.51 Long term (current) use of inhaled steroids; Z79.891 Long term (current) use of opiate analgesic; Z79.899 Other long term (current) drug therapy; Z88.0 Allergy status to penicillin; Z88.1 Allergy status to other antibiotic agents; Z88.8 Allergy status to other drugs, medicaments and biological substances; Z91.09 Other allergy status, other than to drugs and biological substances | CPT/HCPCS: G0463 ==

== ENCOUNTER 2018-06-13 09:58 | Day surgery (SDC) | payer OTHER ==
[2018-06-13] MEDS: NS 1,000 ML IV (06:00)
[2018-06-13] MEDS ORDERED: PROPOFOL 200 MG/20 ML VIAL As Ordered (10:54)
[2018-06-13] MEDS ORDERED: LIDOCAINE 2% INJ 100 MG/5 ML SDV (FOR ANES.) As Ordered (10:54)
[2018-06-13] MEDS ORDERED: fentaNYL 100 MCG/2 ML INJECTION (J3010) As Ordered (10:57)
== END 2018-06-13 12:22 | disposition home or self-care (01) ==
LOC: M OPP 09:58
DX: K22.8 Other specified diseases of esophagus (principal); R12 Heartburn; J45.909 Unspecified asthma, uncomplicated; E04.9 Nontoxic goiter, unspecified; G47.30 Sleep apnea, unspecified; Z79.891 Long term (current) use of opiate analgesic; Z79.899 Other long term (current) drug therapy; Z88.0 Allergy status to penicillin; Z88.8 Allergy status to other drugs, medicaments and biological substances
CPT/HCPCS: 43239

== ENCOUNTER → 2018-06-21 | Outpatient (CLI) | payer OTHER | LOC: M PAIN 09:00 | DX: M47.816 Spondylosis without myelopathy or radiculopathy, lumbar region (principal); M47.817 Spondylosis without myelopathy or radiculopathy, lumbosacral region; J45.909 Unspecified asthma, uncomplicated; E55.9 Vitamin D deficiency, unspecified; G43.909 Migraine, unspecified, not intractable, without status migrainosus; E04.2 Nontoxic multinodular goiter; E66.9 Obesity, unspecified; K21.9 Gastro-esophageal reflux disease without esophagitis; F32.9 Major depressive disorder, single episode, unspecified; G47.33 Obstructive sleep apnea (adult) (pediatric); Z68.36 Body mass index [BMI] 36.0-36.9, adult; Z79.899 Other long term (current) drug therapy; Z79.891 Long term (current) use of opiate analgesic; Z88.0 Allergy status to penicillin; Z88.1 Allergy status to other antibiotic agents; Z88.8 Allergy status to other drugs, medicaments and biological substances; Z91.048 Other nonmedicinal substance allergy status; Z88.2 Allergy status to sulfonamides | CPT/HCPCS: G0463 ==

== ENCOUNTER → 2018-07-19 | Outpatient (REF) | payer OTHER ==
[2018-07-19 18:58] LABS: ANION GAP 8 MEQ/L (8-16); BLOOD UREA NITROGEN 11 MG/DL (7-18); CALCIUM LEVEL 8.7 MG/DL (8.5-10.1); CARBON DIOXIDE LEVEL 25 MEQ/L (21-32); CHLORIDE LEVEL 108 MEQ/L (98-107); CREATININE FOR GFR 0.89 MG/DL (0.55-1.30); GLOMERULAR FILTRATION RATE > 60.0 (>58); GLUCOSE, FASTING 100 MG/DL (70-100); MAGNESIUM LEVEL 1.9 MG/DL (1.8-2.4); POTASSIUM SERUM 4.5 MEQ/L (3.5-5.1); SODIUM LEVEL 141 MEQ/L (136-145)
[2018-07-19 19:39] LABS: HEMATOCRIT 40.1 % (36.0-47.0); HEMOGLOBIN 12.4 g/dl (12.0-15.5); MEAN CORPUSCULAR HEMOGLOBIN 26.1 pg (27.0-33.0); MEAN CORPUSCULAR HGB CONC 30.9 g/dl (32.0-36.5); MEAN CORPUSCULAR VOLUME 84.4 fl (80.0-96.0); PLATELET COUNT, AUTOMATED 389 10^3/uL (150-450); RED BLOOD COUNT 4.75 10^6/uL (4.00-5.40); RED CELL DISTRIBUTION WIDTH 14.3 % (11.5-14.5); WHITE BLOOD COUNT 4.2 10^3/uL (4.0-10.0)
== END ==
LOC: M SFHCADAM 14:24
DX: D50.8 Other iron deficiency anemias (principal); R31.29 Other microscopic hematuria; E87.6 Hypokalemia
CPT/HCPCS: 83735

== ENCOUNTER → 2018-08-21 | Outpatient (CLI) | payer OTHER ==
[~2018-08-21] MED LIST changes: +ALBU17IN INH; +ALBU83IN INH; +BREO1INH3 INH; -BUPIVACAINE HCL 0.25% 30 ML VIAL As Ordered; +BUPR15TA PO; +CLAR10CA3 PO; +CYMB1CAP5 PO; +CYMB60CA3 PO; +DAYP600T PO; +DICL50TA2 PO; +DOXY100C PO; +DULO1CAP3 PO; +DULO30CA PO; +FLON1SPR; +GLUC500T53 PO; +IBUP-1114 PO; +INCR1INH INH; +IRON325T7 PO; +IRON65TA PO; +JOIN1CAP2 PO; +LEVA1.2525 INH; +LEVAINH INH; +LIDO1OIN2 TOP; +LIDO5DIS41 TD; -LIDOCAINE 1% SDV INJ 30 ML VIAL As Ordered; +MAGN400T2 PO; +MULT1TAB10 PO; +MULTCAP11 PO; +NABU-119 PO; +NEXI40CA PO; +PANT40TA3 PO; +PERC5TAB12 PO; +PRED10PA PO; +PRED10TA PO; +PRED20TAB PO; +RANI150T PO; +SING10TA32 PO; +SPIR1CAP INH; +SYMB16INH INH; +THEO1CAP4 PO; +TOPA100T12 PO; -TRIAMCINOLONE ACETONIDE SUSP 40 MG/ML VIAL (J3301) As Ordered; +VITA100066 PO; +VITA50005 PO; +VITMTA PO; +flexeril PO
--- NOTE | 2018-09-10 01:32 | ECWPNPC ---
PATIENT NAME: ARLETTE BORJA : 1970 GENDER: FEMALE VISIT DATE: 08/21/2018 DISCHARGE DATE: 08/21/18 0000 VISIT LOCKED DATE TIME: PHYSICIAN: STACEY MARQUEZ RESOURCE: STACEY MARQUEZ REASON FOR APPOINTMENT 1. BACK/JOINT PAIN-RUNNING LATE HISTORY OF PRESENT ILLNESS HISTORY OF PRESENT ILLNESS: HERE FOR F/U OF CHRONIC LOW BACK PAIN AND LEFT HIP PAIN.RATING PAIN VAS 8-10/10.FINDS CURRENT CHRONIC PAIN MEDICATION EFFECTIVE AT REDUCING PAIN AND KEEPING HER COMFORTABLE.DESCRIBES PAIN CONSTANT ,BURNING AND SORE. PAIN THE PATIENT DESCRIBES THE PAIN... FALL RISK SCREENING: SCREENING :NO FALLS IN THE PAST YEAR CURRENT MEDICATIONS TAKING MAXALT 10 MG TABLET 1 TABLET AT ON SET OF INFANTE, DECEMBER REPEAT X 1 AFTER 2 HOURS ORALLY TWICE A DAY NEEDED, MDD=2 TAKING PANTOPRAZOLE SODIUM 40 MG TABLET DELAYED RELEASE 1 TABLET ORALLY TWICE A DAY TAKING SALINE AEROSOL SOLUTION NASAL SPRAY TID PRN TAKING MULTIVITAMIN TABLET CHEWABLE ORALLY ONCE DAILY TAKING SM ARTHRITIS PAIN RELIEF 650 MG TABLET EXTENDED RELEASE 2 TABLETS NEEDED ORALLY TAKE 2 TABS Q 2-8 HRS PRN PAIN MDD=6 TAKING BREO ELLIPTA 200-25 MCG/INH AEROSOL POWDER BREATH ACTIVATED 1 PUFF INHALATION ONCE A DAY TAKING INCRUSE ELLIPTA 62.5 MCG/INH AEROSOL POWDER BREATH ACTIVATED 1 PUFF INHALATION ONCE A DAY TAKING SINGULAIR 10 MG TABLET 1 TABLET IN THE EVENING ORALLY ONCE A DAY TAKING FLUTICASONE PROPIONATE 50 MCG/ACT SUSPENSION 1 SPRAY IN EACH NOSTRIL NASALLY TWICE A DAY TAKING LORATADINE 10 MG TABLET 1 TABLET ORALLY ONCE A DAY TAKING KLONOPIN 0.5 MG TABLET 1/2 TABLET ORALLY TWICE A DAY PRN TAKING WELLBUTRIN XL 300 MG TABLET EXTENDED RELEASE 24 HOUR 1 TABLET IN THE MORNING ORALLY ONCE A DAY, NOTES: TAKES IWTH 150MG FOR TOTAL OF 450MG TAKING MAGNESIUM 400 MG TABLET 1 TABLET ORALLY ONCE A DAY TAKING NEBULIZER AIR TUBE/PLUGS - MISCELLANEOUS DIRECTED DX CODE:J45.909 DIRECTED TAKING FERROUS GLUCONATE 325 (36 FE) MG TABLET 1 TABLET ORALLY ONCE A DAY TAKING XOPENEX HFA AEROSOL EVERY 6 HR NEEDED TAKING XOPENEX 1.25 MG/3ML NEBULIZATION SOLUTION 3 ML INHALATION EVERY 6 HRS PRN TAKING RANITIDINE HCL 150 MG CAPSULE 1 CAPSULE AT BEDTIME ORALLY ONCE A DAY TAKING DRISDOL 63310 UNIT CAPSULE 1 CAPSULE ORALLY ONCE A WEEK TAKING ACETAMINOPHEN ER 650 MG TABLET EXTENDED RELEASE 2 TABLETS NEEDED ORALLY EVERY 8 HRS TAKING TOPIRAMATE 100 MG TABLET 1 TABLET ORALLY TWICE A DAY, MDD=2 TAKING WELLBUTRIN XL 150 MG TABLET EXTENDED RELEASE 24 HOUR 1 TABLET IN THE MORNING ORALLY ONCE A DAY, NOTES: TAKES IWTH 300MG FOR TOTAL OF 450MG DAILY TAKING CYMBALTA 60 MG CAPSULE DELAYED RELEASE PARTICLES 1 CAPSULE ORALLY ONCE A DAY TAKING PERCOCET 5-325 MG TABLET 1-2 ORALLY EVERY 6 -8 HRS PRN PAIN MDD=6 CHRONIC PAIN TAKING CYCLOBENZAPRINE HCL 10 MG TABLET 1 TABLET NEEDED ORALLY EVERY 6 HOURS TAKING MOVE [employer] JOINT HEALTH ADVANCE - TABLET ORALLY DAILY NOT-TAKING IBUPROFEN 600 MG TABLET 1 TABLET WITH FOOD OR MILK NEEDED ORALLY THREE TIMES A DAY MEDICATION LIST REVIEWED AND RECONCILED WITH THE PATIENT PAST MEDICAL HISTORY LT WRIST INJURY RECURRENT SINUSITIS BACK INJURY-2000(WORK)- L3 - 4 DISC HERNIATION - CHRONIC IDRIS PAIN MANAGED BY PAIN CLINIC ASTHMA - FOLLOWED BY PULMONARY [place] VITAMIN D DEFICIENCY ALLERGIES OSTEO NECROSIS BILATERAL KNEES MIGRAINES MULTINODULAR GOITER WITH LARGE MICROCALCIFIC NODES - S/P BIOPSY - BENIGN PER [facility] - REPEAT US 08/2017 RECOMMENDED OBESITY - MANAGED WITH PHENTERIMINE IN THE PAST VITAMIN D DEFICIENCY GERD/SMALL HH PER EGD 2016 ECHO 12/2016 - GRADE 1 LV DIASTOLIC DYSFUNCTION. NORMAL LV SIZE, THICKNESS AND WALL MOTION. EF 70%. POSSIBLE ELEVATED RIGHT VENTRICULAR SYSTOLIC PRESSURE DEPRESSION LESLEY ON CPAP ALLERGIES PENICILLIN (FOR ALLERGIES USE ONLY): HIVES: ALLERGY LEVAQUIN: HIVES,SWELLING: ALLERGY LYRICA: [employer] SWELLING: ALLERGY SUDAFED: HEART RACES: SIDE EFFECTS ALBUTEROL: HEART RACES: SIDE EFFECTS BACTRIM DS: HIVES: ALLERGY NICKEL: RASG: ALLERGY SURGICAL HISTORY SINUS 05/24/2012 LT WRIST-TARE 10/02/2012 12/30/1998 LT WRIST-LIGAMENT RECONSTURCTION, ULNA SHORTENING 02/27/2013 RIGHT LEG VERICOSE VEIN SURGERY 11/2014 LEFT LEG NODULE REMOVAL BENIGN 11/2014 UPPER GI 07/2016 FAMILY HISTORY FATHER: ALIVE MOTHER: SOCIAL HISTORY GENERAL: TOBACCO USE ARE YOU A:NONSMOKER BMI CARE GOAL FOLLOW-UP ABOVE NORMAL BMI FOLLOW-UPDIETARY NEEDS EDUCATION, GIVING ENCOURAGEMENT TO EXERCISE, LIFESTYLE EDUCATION REGARDING DIET ALCOHOL SCREENING DID YOU HAVE A DRINK CONTAINING ALCOHOL IN THE PAST YEAR?YES HOW OFTEN DID YOU HAVE SIX OR MORE DRINKS ON ONE OCCASION IN THE PAST YEAR?NEVER (0 POINTS) HOW MANY DRINKS DID YOU HAVE ON A TYPICAL DAY WHEN YOU WERE DRINKING IN THE PAST YEAR?1 OR 2 (0 POINTS) HOW OFTEN DID YOU HAVE A DRINK CONTAINING ALCOHOL IN THE PAST YEAR?TWO TO FOUR TIMES A MONTH (2 POINTS) POINTS2 INTERPRETATIONNEGATIVE RECREATIONAL DRUG USE DRUG USE?NO CAFFEINE CAFFEINE USE?YES COFFE 1 CUP A DAY SEXUAL HX HAD SEX IN THE LAST 12 MONTHS (VAGINAL, ORAL, OR ANAL)?YES WITHMEN ONLY LMP:10/18/17 HAVE YOU EVER HAD AN STD?NO CATHOLIC [id number] YAZDANISM NO BAPTIST BELIEFS THAT WOULD IMPACT HEALTH CARE. LANGUAGE LANGUAGES SPOKEN:MAORI LEARNING BARRIERS / SPECIAL NEEDS CHANGE FROM LAST VISIT?NO BARRIERS TO LEARNING?NO HEARING IMPAIRED?NO VISION IMPAIRED?YES READING COGNITIVELY IMPAIRED?NO :CORRECTIVE LENSES READINESS TO LEARN?YES LEARNING PREFERENCES?NO LEARNING CAPABILITIES PRESENT?YES EMOTIONAL BARRIERS?NO SPECIAL DEVICES?NO RECREATION OFFICER NEEDED?NO OCCUPATION: UNEMPLOYED. DIET: REGULAR. EXERCISE: NO REGULAR EXERCISE. MARITAL STATUS: .. OTHERS AT HOME: DAUGHTER,JENISE. NEW PATIENT PAIN DIARY TODAY'S VISITNOTES FROM 0-10, WHAT LEVEL IS YOUR PAIN TODAY?8 PAIN CLINIC PFS, CLERGY, PUBLIC HEALTH REFERRALS HAS THE PATIENT BEEN EDUCATED REGARDING HIS/HER PLAN OF CARE?YES HAS THE PATIENT BEEN EDUCATED REGARDING PAIN, THE RISK FOR PAIN, THE IMPORTANCE OF EFFECTIVE PAIN MANAGEMENT, AND THE PAIN ASSESSMENT PROCESS?YES ADVANCE DIRECTIVE ADVANCE DIRECTIVE DISCUSSED WITH PATIENT:YES PT HAS NO ADVANCED DIRECTIVES, DECLINES INFORMATION OR ASSISTANCE AT THIS TIMR REVIEWED WITH PT 04-19-18 BVREVIEWED WITH PT 06/21/18 0928 BVREVIEWED WITH PT 08/21/2018 1225 LAS. HOSPITALIZATION/MAJOR DIAGNOSTIC PROCEDURE 12/30/1998 BRONCHITIS/ASTHMA 11/27 REVIEW OF SYSTEMS REVIEWED BY: PROVIDER: STACEY VASQUEZ . CONSTITUTIONAL: ANY CHANGE IN YOUR MEDICAL CONDITION? NO . CHILLS NO . FEVER NO . INFECTION: DO YOU HAVE NEW INFECTIONS? YES SINUS INFECTION . DO YOU HAVE HISTORY OF MRSA? NO . MUSCULOSKELETAL: ANY NEW PATTERNS OF PAIN OR NUMBNESS? YES PT REPORTS SHE HAD A RADIOFREQUENCY LAST SUMMER, STATES THE PAIN RIGHT LOW BACK IS STARTING TO RETURN. PAIN REMAINS UNCHANGED IN LEFT LOW BACK. . GASTROENTEROLOGY: ANY NEW CHANGE IN BOWEL CONTROL? NO . GENITOURINARY: ANY NEW CHANGE IN BLADDER CONTROL? YES PT REPORTS INCREASED URGENCY, GOING ON FOR > 8 MONTHS . IS THERE A CHANCE YOU COULD BE ? NO . HEMATOLOGY/LYMPH: DO YOU TAKE ANY BLOOD THINNERS? (FOR EXAMPLE- COUMADIN, PLAVIX, AGGRENOX, PLATEL, PRADAXA, OR XARELTO) NO . WHEN WAS YOUR LAST DOSE? DATE: TIME: . NEUROLOGY: HAVE YOU FALLEN IN THE PAST 6 MONTHS? YES PT REPORTS SHE SLIPPED ON ICE ON HER DECK, FELL DOWN ABOUT FOUR STAIRS. WENT TO THE ED AT [facility], PER PT SHE HAD "BRUISED RIBS, COULD NOT RULE OUT HAIRLINE FRACTURE" THIS HAPPENED RIGHT AFTER . . ANY NEW EXTREMITY NUMBNESS OR WEAKNESS? YES PT REPORTS A NEW NUMBNESS/TINGLING IN LEFT HIP SINCE FALL AT [facility]. . CARDIOLOGY: DO YOU HAVE A PACEMAKER OR DEFIBRILLATOR? NO . RESPIRATORY: HAVE YOU BEEN SICK IN THE PAST WEEK? YES PT REPORTS COLD SYMPTOMS, NASAL CONGESTION, COUGH. FEELS IT IS RESOLVING . FEVER NO . FLU LIKE SYMPTOMS? NO . COUGH NO . INTEGUMENTARY: DO YOU HAVE ANY RASHES OR OPEN SORES? NO . ALLERGIC/IMMUNO: ARE YOU ALLERGIC TO SHELLFISH OR IV DYE? NO . ANY NEW ALLERGIES? NO . PSYCHIATRIC: DO YOU HAVE THOUGHTS OF HURTING YOURSELF OR SOMEONE ELSE? NO PT DENIES. . ARE YOU ABUSED, NEGLECTED, OR IN AN UNSAFE ENVIRONMENT? NO . ENDOCRINOLOGY: ARE YOU DIABETIC? NO . OTHER: DO YOU NEED ANY PRESCRIPTIONS? YES . IF YES, PLEASE LIST: ____PERCOCET, FLEXERIL . ANY NEW PROBLEMS WITH YOUR MEDICATIONS? NO . WHEN DID YOU LAST EAT? ____ . WHEN DID YOU LAST DRINK? ____ . WHAT DID YOU LAST DRINK? ____ . NAME OF PERSON DRIVING YOU HOME? ____ . DO YOU HAVE ANY OTHER QUESTIONS OR CONCERNS PT REPORTS HER RIGHT LOW BACK PAIN IS COMING BACK INTERMITTANTLY. HAD A RADIOFREQUENCY RIGHT LAST YEAR. . VITAL SIGNS WT 206 LBS, HT 63 IN, BMI 36.49 INDEX, BP 125/81 MM HG, HR 98 /MIN, RR 16 /MIN, TEMP 97.3 F, OXYGEN SAT % 98%, SAFE IN ENV? (Y/N) YES, NA INITIALS AW 1107, REVIEWED BY: MITA. EXAMINATION GENERAL EXAMINATION: GENERAL APPEARANCE:AWAKE,ALERT ,PLEAASANT . PSYCHAFFECT NORMAL . LUNGS:LUNG TEJADA ARE CLEAR TO AUSCULTATION BILATERALLY. GOOD MOVEMENT OF AIR . HEART:S1, S2 IN A REGULAR RATE AND RHYTHM. NO SIGNIFICANT MURMURS, RUBS OR GALLOPS NOTED . ASSESSMENTS SPONDYLOSIS OF LUMBAR REGION WITHOUT MYELOPATHY OR RADICULOPATHY - M47.816 (PRIMARY) CONTUSION OF RIB ON LEFT SIDE, SUBSEQUENT ENCOUNTER - S20.212D TREATMENT SPONDYLOSIS OF LUMBAR REGION WITHOUT MYELOPATHY OR RADICULOPATHY REFILL CYCLOBENZAPRINE HCL TABLET, 10 MG, 1 TABLET NEEDED, ORALLY, EVERY 6 HOURS, 10 DAYS, 40 TABLET, REFILLS 0 REFILL PERCOCET TABLET, 5-325 MG, 1-2, ORALLY, EVERY 6 -8 HRS PRN PAIN MDD=6 CHRONIC PAIN, 30 DAY(S), 180, REFILLS 0 CONTINUE CYMBALTA CAPSULE DELAYED RELEASE PARTICLES, 60 MG, 1 CAPSULE, ORALLY, ONCE A DAY NOTES: ISTOP REGISTRY REVIEWED AND DEMONSTRATES COMPLLIANCE. (REF # [id number] ) FORGOT HER MEDICATION AT HOME. URINE TOX TODAY, RISKS AND BENEFITS OF NARCOTIC/OPIOD MEDICATIONS WERE REVIEWED WITH PATIENT - THIS INCLUDES BUT IS NOT LIMITED TO RISK OF DEPENDANCE/DEVELOPMENT OF ADDICTION, MOOD DISTURBANCE AND DEPRESSION, OSTEOPOROSIS, HORMONAL AND LABIDAL CHANGES, RESPIRATORY DEPRESSION AND . PATIENT IS ADVISED NOT TO DRIVE OR DRINK ALCOHOL WHILE ON THESE MEDICATIONS, TONSIL HOSPITAL NARCOTIC AGREEMENT WAS REVIEWED AND SIGNED TODAY BY THE PATIENT. SEE ATTACHED DOCUMENT FOR FULL DETAILS; SPECIFIC ISSUES WERE REVIEWED: 1) KEEP PAIN MEDS IN THEIR ORIGINAL BOTTLES AND ANY WEEKLY PLANNERS ARE TO BE BROUGHT TO THE PAIN CENTER AT EVERY VISIT. 2) THE PATIENT IS NOT TO INCREASE DOSING OR TIMING OF THEIR PAIN MEDICATION WITHOUT SPECIFIC DIRECTION OF THEIR PAIN CENTERPROVIDER (NOT ER OR OTHER PROVIDERS). 3) ALL PAIN MEDS ARE TO BE KEPT SECURED, IN A LOCKED BOX. 4) NO PAIN MEDS ARE TO BE SHARED WITH ANY OTHER PERSON FOR ANY REASON. 5) NO PAIN MEDS MAY BE TAKEN FROM ANY FRIENDS OR RELATIVES FOR ANY REASON 6) NO MEDS OR SUBSTANCES WHICH ARE NOT LEGAL ARE TO BE USED- NO MARIJUANA, NO COCAINE, AMPHETAMINES, HEROIN, OR OTHERS ARE EVER TO BE USED. 7)URINE TESTING IS DONE TO ACCOUNT FOR MEDS AND SUBSTANCES BEING TAKEN AND WILL BE DONE RANDOMLY. PROCEDURE CODES FA211 ESTABILISHED PATIENT [facility] CHARGE DISPOSITION & COMMUNICATION FOLLOW UP 2 MONTHS ELECTRONICALLY SIGNED BY CHRISTINA LOCO ON 09/09/2018 AT 12:51 PM EST DISCLAIMER : THIS IS A VISIT SUMMARY EXTRACTED FROM THE [employer] CHART. IT IS NOT A COPY OF THE [employer] PROGRESS NOTE. CHARMAINE
== END ==
LOC: M PAIN 10:45
PROVIDERS: ATTEND Nurse Practitioner Family
DX: M47.816 Spondylosis without myelopathy or radiculopathy, lumbar region (principal); G89.29 Other chronic pain; S20.212D Contusion of left front wall of thorax, subsequent encounter; J45.909 Unspecified asthma, uncomplicated; M17.0 Bilateral primary osteoarthritis of knee; G43.909 Migraine, unspecified, not intractable, without status migrainosus; K21.9 Gastro-esophageal reflux disease without esophagitis; F32.9 Major depressive disorder, single episode, unspecified; G47.33 Obstructive sleep apnea (adult) (pediatric); E66.01 Morbid (severe) obesity due to excess calories; Z68.36 Body mass index [BMI] 36.0-36.9, adult; Z79.51 Long term (current) use of inhaled steroids; Z79.891 Long term (current) use of opiate analgesic; Z79.899 Other long term (current) drug therapy; Z88.0 Allergy status to penicillin; Z88.1 Allergy status to other antibiotic agents; Z88.8 Allergy status to other drugs, medicaments and biological substances; Z91.09 Other allergy status, other than to drugs and biological substances

== ENCOUNTER → 2018-11-02 | Outpatient (CLI) | payer OTHER ==
--- NOTE | 2018-11-02 14:06 | REPMRS ---
Patient History The patient states she had a clinical breast exam in 10/2018. Family history of prostate cancer at age 60 in father, breast cancer in paternal aunt, breast cancer in paternal aunt. No Hormone Replacement Therapy 3D TOMOSYNTHESIS WAS PERFORMED. Digital Woman Screen Mammo: November 02, 2018 - Exam #: [id number] Bilateral CC and MLO view(s) were taken. Technologist: Adalgisa Villanueva, Technologist Prior study comparison: November 01, 2017, digital woman screen mammo performed at [facility] ([place] to [facility]. September 16, 2016, digital woman screen mammo performed at [facility] [place] to [facility]. FINDINGS: There are scattered fibroglandular densities. There has been no change in the appearance of the mammogram from the prior studies. There is a mild amount of residual fibroglandular tissue which is fairly symmetric. There is no interval development of dominant mass, architectural distortion, or clustered microcalcification suggestive of malignancy. Assessment: BI-RADS/ACR category 1 mammogram. Negative Mammogram. Recommendation Routine screening mammogram in 1 year (for women over age 40). This mammogram was interpreted with the aid of an FDA-approved computer-aided dectection system. Electronically Signed By: Juaquin Gibbons MD 11/02/18 9110
== END ==
LOC: M WHC 11:14
PROVIDERS: ATTEND Nurse Practitioner Women's Health
DX: Z12.31 Encounter for screening mammogram for malignant neoplasm of breast (principal)

== ENCOUNTER → 2018-11-20 | Outpatient (CLI) | payer OTHER ==
[~2018-11-20] MED LIST changes: -DULO30CA PO; +DULO30CA9 PO; +FERR325T82 PO; -IRON325T7 PO; +PRED-351 PO; -PRED10TA PO
--- NOTE | 2018-12-05 00:48 | ECWPNPC ---
PATIENT NAME: ARLETTE BORJA : 1970 GENDER: FEMALE VISIT DATE: 11/20/2018 DISCHARGE DATE: 11/20/18 1014 VISIT LOCKED DATE TIME: PHYSICIAN: STACEY MARQUEZ RESOURCE: STACEY MARQUEZ REASON FOR APPOINTMENT 1. BACK/JOINT PAIN HISTORY OF PRESENT ILLNESS HISTORY OF PRESENT ILLNESS: HERE FOR F/U OF CHRONIC LOW BACK PAIN.COMPLAINING OF INCREASE IN LOW BACK PAIN AND HIP PAIN OVER THE PAST FEW MONTHS.RATING PAIN VAS 6/10 VAS. PAIN THE PATIENT DESCRIBES THE PAIN... FALL RISK SCREENING: SCREENING :NO FALLS REPORTED IN THE LAST YEAR CURRENT MEDICATIONS TAKING MAXALT 10 MG TABLET 1 TABLET AT ON SET OF INFANTE, MAY REPEAT X 1 AFTER 2 HOURS ORALLY TWICE A DAY NEEDED, MDD=2 TAKING SALINE AEROSOL SOLUTION NASAL SPRAY TID PRN TAKING MULTIVITAMIN TABLET CHEWABLE ORALLY ONCE DAILY TAKING SM ARTHRITIS PAIN RELIEF 650 MG TABLET EXTENDED RELEASE 2 TABLETS NEEDED ORALLY TAKE 2 TABS Q 2-8 HRS PRN PAIN MDD=6 TAKING INCRUSE ELLIPTA 62.5 MCG/INH AEROSOL POWDER BREATH ACTIVATED 1 PUFF INHALATION ONCE A DAY TAKING SINGULAIR 10 MG TABLET 1 TABLET IN THE EVENING ORALLY ONCE A DAY TAKING FLUTICASONE PROPIONATE 50 MCG/ACT SUSPENSION 1 SPRAY IN EACH NOSTRIL NASALLY TWICE A DAY TAKING LORATADINE 10 MG TABLET 1 TABLET ORALLY ONCE A DAY TAKING KLONOPIN 0.5 MG TABLET 1/2 TABLET ORALLY TWICE A DAY PRN TAKING WELLBUTRIN XL 300 MG TABLET EXTENDED RELEASE 24 HOUR 1 TABLET IN THE MORNING ORALLY ONCE A DAY, NOTES: TAKES IWTH 150MG FOR TOTAL OF 450MG TAKING MAGNESIUM 400 MG TABLET 1 TABLET ORALLY ONCE A DAY TAKING NEBULIZER AIR TUBE/PLUGS - MISCELLANEOUS DIRECTED DX CODE:J45.909 DIRECTED TAKING FERROUS GLUCONATE 325 (36 FE) MG TABLET 1 TABLET ORALLY ONCE A DAY TAKING XOPENEX HFA AEROSOL EVERY 6 HR NEEDED TAKING XOPENEX 1.25 MG/3ML NEBULIZATION SOLUTION 3 ML INHALATION EVERY 6 HRS PRN TAKING RANITIDINE HCL 150 MG CAPSULE 1 CAPSULE AT BEDTIME ORALLY ONCE A DAY TAKING DRISDOL 07294 UNIT CAPSULE 1 CAPSULE ORALLY ONCE A WEEK TAKING ACETAMINOPHEN ER 650 MG TABLET EXTENDED RELEASE 2 TABLETS NEEDED ORALLY EVERY 8 HRS TAKING WELLBUTRIN XL 150 MG TABLET EXTENDED RELEASE 24 HOUR 1 TABLET IN THE MORNING ORALLY ONCE A DAY, NOTES: TAKES IWTH 300MG FOR TOTAL OF 450MG DAILY TAKING MOVE Baitianshi JOINT HEALTH ADVANCE - TABLET ORALLY DAILY TAKING CYMBALTA 60 MG CAPSULE DELAYED RELEASE PARTICLES 1 CAPSULE ORALLY ONCE A DAY TAKING TOPIRAMATE 100 MG TABLET 1 TABLET ORALLY TWICE A DAY, MDD=2 TAKING PANTOPRAZOLE SODIUM 40 MG TABLET DELAYED RELEASE 1 TABLET ORALLY TWICE A DAY TAKING FLUTICASONE-SALMETEROL 230-21 MCG/ACT AEROSOL 2 PUFFS INHALATION TWICE A DAY TAKING PERCOCET 5-325 MG TABLET 1-2 ORALLY EVERY 6 -8 HRS PRN PAIN MDD=6 CHRONIC PAIN TAKING CYCLOBENZAPRINE HCL 10 MG TABLET 1 TABLET NEEDED ORALLY EVERY 6 HOURS NOT-TAKING VITAMIN D (ERGOCALCIFEROL) 92309 UNIT CAPSULE TAKE 1 CAPSULE BY MOUTH ONCE A WEEK NOT-TAKING BREO ELLIPTA 200-25 MCG/INH AEROSOL POWDER BREATH ACTIVATED 1 PUFF INHALATION ONCE A DAY NOT-TAKING IBUPROFEN 600 MG TABLET 1 TABLET WITH FOOD OR MILK NEEDED ORALLY THREE TIMES A DAY MEDICATION LIST REVIEWED AND RECONCILED WITH THE PATIENT PAST MEDICAL HISTORY LT WRIST INJURY RECURRENT SINUSITIS BACK INJURY-2000(WORK)- L3 - 4 DISC HERNIATION - CHRONIC IDRIS PAIN MANAGED BY PAIN CLINIC ASTHMA - FOLLOWED BY PULMONARY SYRACUSE ALLERGIES OSTEO NECROSIS BILATERAL KNEES MIGRAINES MULTINODULAR GOITER WITH LARGE MICROCALCIFIC NODES - S/P BIOPSY - BENIGN PER [facility] - REPEAT US 08/2017 RECOMMENDED OBESITY - MANAGED WITH PHENTERIMINE IN THE PAST VITAMIN D DEFICIENCY GERD/SMALL HH PER EGD 2016 ECHO 12/2016 - GRADE 1 LV DIASTOLIC DYSFUNCTION. NORMAL LV SIZE, THICKNESS AND WALL MOTION. EF 70%. POSSIBLE ELEVATED RIGHT VENTRICULAR SYSTOLIC PRESSURE DEPRESSION LESLEY ON CPAP ALLERGIES PENICILLIN (FOR ALLERGIES USE ONLY): HIVES - ALLERGY LEVAQUIN: HIVES,SWELLING - ALLERGY LYRICA: [employer] SWELLING - ALLERGY SUDAFED: HEART RACES - SIDE EFFECTS ALBUTEROL: HEART RACES - SIDE EFFECTS BACTRIM DS: HIVES - ALLERGY NICKEL: RASH - ALLERGY SURGICAL HISTORY SINUS 05/24/2012 LT WRIST-TEAR 10/02/2012 12/30/1998 LT WRIST-LIGAMENT RECONSTURCTION, ULNA SHORTENING 02/27/2013 RIGHT LEG VERICOSE VEIN SURGERY 11/2014 LEFT LEG NODULE REMOVAL BENIGN 11/2014 UPPER GI 07/2016 & 05/2018 FAMILY HISTORY FATHER: ALIVE 74 YRS, PROSTATE AT AGE OLDER THAN 50, DIAGNOSED WITH CANCER MOTHER: 62 YRS, COPD 5 P. AUNTS, TWO AFFECTED BY BREAST CA YOUNGER THAN AGE 50, ONE WITH BOTH BREASTS AFFECTED, BOTH ALIVE\SAMPLE BOOK MAKER. GRANDMOTHER WITH BRAIN CANCER, AGE OF DX UNKNOWN, \NONE PATERNAT COUSIN WITH OVARIAN CANCER, AGE OF DX UNKNOWN, ALIVE.\NPT DOES NOT HAVE CONTACT WITH PATERNAL SIDE OF FAMILY.\NMOM\'S SISTER\'S SON WITH RENAL CANCER (COUSIN) - , LATE 40\'S\NMATERNAL UNCLE WITH RENAL CANCER, AGE OF DX UNKNOWN, \NM. GRANDMA WITH RENAL CANCER, AGE OF DX UNKNOWN, . SOCIAL HISTORY GENERAL: TOBACCO USE ARE YOU A:NONSMOKER LATEX QUESTIONNAIRE LATEX ALLERGY : HAVE YOU EVER DEVELOPED ANY TYPE OF REACTION AFTER HANDLING LATEX PRODUCTS SUCH RUBBER GLOVES, CONDOMS, DIAPHRAGMS, BALLOONS, SOCKS, OR UNDERWEAR?NO LATEX ALLERGY : HAVE YOU EVER DEVELOPED ANY TYPE OF REACTION DURING OR AFTER DENTAL APPOINTMENT, VAGINAL/RECTAL EXAMINATION, SURGICAL PROCEDURE, OR ANY OTHER EXPOSURE?NO DATE ASKED : 11/02/2018 LATEX RISK : HAVE YOU EVER HAD ANY DIFFICULTY BREATHING OR HIVES AFTER EATING OR HANDLING ANY FRUITS, OR VEGETABLES; SUCH KIWI, BANANAS, STONE FRUITS, OR CHESTNUTSNO LATEX RISK : DO YOU HAVE A PREVIOUS PERSONAL HISTORY OF MORE THAN NINE SURGERIES, SPINA BIFIDA, OR REPEATED CATHERTIZATIONS? NO LATEX RISK : ARE YOU FREQUENTLY EXPOSED TO LATEX PRODUCTS IN YOUR OCCUPATION?NO BMI CARE GOAL FOLLOW-UP ABOVE NORMAL BMI FOLLOW-UPDIETARY NEEDS EDUCATION, GIVING ENCOURAGEMENT TO EXERCISE, LIFESTYLE EDUCATION REGARDING DIET ALCOHOL SCREENING DID YOU HAVE A DRINK CONTAINING ALCOHOL IN THE PAST YEAR?YES HOW OFTEN DID YOU HAVE SIX OR MORE DRINKS ON ONE OCCASION IN THE PAST YEAR?NEVER (0 POINTS) HOW MANY DRINKS DID YOU HAVE ON A TYPICAL DAY WHEN YOU WERE DRINKING IN THE PAST YEAR?1 OR 2 (0 POINTS) HOW OFTEN DID YOU HAVE A DRINK CONTAINING ALCOHOL IN THE PAST YEAR?TWO TO FOUR TIMES A MONTH (2 POINTS) POINTS2 INTERPRETATIONNEGATIVE RECREATIONAL DRUG USE DRUG USE?NO CAFFEINE CAFFEINE USE?YES COFFEE 1 CUP A DAY SEXUAL HX HAD SEX IN THE LAST 12 MONTHS (VAGINAL, ORAL, OR ANAL)?YES WITHMEN ONLY LMP:11/02/18 HAVE YOU EVER HAD AN STD?NO HIV / HEP-C SCREENING HIV TEST OFFERED TO PATIENT:YES DATE OFFERED:11/02/2018 TEST ACCEPTED:NO REASON:PATIENT DECLINED BROCHURE PROVIDED TO PATIENTNO ZOROASTRIANISM [id number] JAIN NO SCIENTOLOGY BELIEFS THAT WOULD IMPACT HEALTH CARE. LANGUAGE LANGUAGES SPOKEN:PASHTO LEARNING BARRIERS / SPECIAL NEEDS CHANGE FROM LAST VISIT?NO BARRIERS TO LEARNING?NO HEARING IMPAIRED?NO VISION IMPAIRED?YES READING COGNITIVELY IMPAIRED?NO :CORRECTIVE LENSES READINESS TO LEARN?YES LEARNING PREFERENCES?NO LEARNING CAPABILITIES PRESENT?YES EMOTIONAL BARRIERS?NO SPECIAL DEVICES?NO RED HAT OPEN STACK ADMINISTRATOR NEEDED?NO OCCUPATION: UNEMPLOYED. DIET: REGULAR. EXERCISE: GYM 3 DAYS WEEKLY TREADMILL . MARITAL STATUS: .. OTHERS AT HOME: DAUGHTER,JENISE. NEW PATIENT PAIN DIARY TODAY'S VISITNOTES FROM 0-10, WHAT LEVEL IS YOUR PAIN TODAY?8 PAIN CLINIC PFS, CLERGY, PUBLIC HEALTH REFERRALS HAS THE PATIENT BEEN EDUCATED REGARDING HIS/HER PLAN OF CARE?YES HAS THE PATIENT BEEN EDUCATED REGARDING PAIN, THE RISK FOR PAIN, THE IMPORTANCE OF EFFECTIVE PAIN MANAGEMENT, AND THE PAIN ASSESSMENT PROCESS?YES ADVANCE DIRECTIVE ADVANCE DIRECTIVE DISCUSSED WITH PATIENT:YES PT HAS NO ADVANCED DIRECTIVES, DECLINES INFORMATION OR ASSISTANCE AT THIS TIMR REVIEWED WITH PT 04-19-18 BVREVIEWED WITH PT 06/21/18 0928 BVREVIEWED WITH PT 08/21/2018 1225 LAS. HOSPITALIZATION/MAJOR DIAGNOSTIC PROCEDURE 12/30/1998 BRONCHITIS/ASTHMA 11/27 REVIEW OF SYSTEMS REVIEWED BY: PROVIDER: STACEY VASQUEZ . CONSTITUTIONAL: ANY CHANGE IN YOUR MEDICAL CONDITION? NO . CHILLS NO . FEVER NO . INFECTION: DO YOU HAVE NEW INFECTIONS? NO . DO YOU HAVE HISTORY OF MRSA? NO . MUSCULOSKELETAL: ANY NEW PATTERNS OF PAIN OR NUMBNESS? NO . GASTROENTEROLOGY: ANY NEW CHANGE IN BOWEL CONTROL? NO . GENITOURINARY: ANY NEW CHANGE IN BLADDER CONTROL? NO . IS THERE A CHANCE YOU COULD BE ? NO . HEMATOLOGY/LYMPH: DO YOU TAKE ANY BLOOD THINNERS? (FOR EXAMPLE- COUMADIN, PLAVIX, AGGRENOX, PLATEL, PRADAXA, OR XARELTO) NO . WHEN WAS YOUR LAST DOSE? DATE: TIME: . NEUROLOGY: HAVE YOU FALLEN IN THE PAST 12 MONTHS? YES . ANY NEW EXTREMITY NUMBNESS OR WEAKNESS? NO . CARDIOLOGY: DO YOU HAVE A PACEMAKER OR DEFIBRILLATOR? NO . RESPIRATORY: HAVE YOU BEEN SICK IN THE PAST WEEK? NO . FEVER NO . FLU LIKE SYMPTOMS? NO . COUGH NO . INTEGUMENTARY: DO YOU HAVE ANY RASHES OR OPEN SORES? NO . ALLERGIC/IMMUNO: ARE YOU ALLERGIC TO IV DYE? NO . ANY NEW ALLERGIES? NO . PSYCHIATRIC: DO YOU HAVE THOUGHTS OF HURTING YOURSELF OR SOMEONE ELSE? NO . ARE YOU ABUSED, NEGLECTED, OR IN AN UNSAFE ENVIRONMENT? NO . ENDOCRINOLOGY: ARE YOU DIABETIC? NO . OTHER: DO YOU NEED ANY PRESCRIPTIONS? CHECK CYMBALTA . IF YES, PLEASE LIST: ____ . ANY NEW PROBLEMS WITH YOUR MEDICATIONS? NO . WHEN DID YOU LAST EAT? ____ . WHEN DID YOU LAST DRINK? ____ . WHAT DID YOU LAST DRINK? ____ . NAME OF PERSON DRIVING YOU HOME? ____ . DO YOU HAVE ANY OTHER QUESTIONS OR CONCERNS NO . VITAL SIGNS WT 214 LBS, HT 63 IN, BMI 37.90 INDEX, BP 152/71 MM HG, HR 84 /MIN, RR 18 /MIN, TEMP 97.0 F, OXYGEN SAT % 99%, NA INITIALS AW 0930. EXAMINATION GENERAL EXAMINATION: GENERAL APPEARANCE: AWAKE,ALERT ,PLEAASANT . PSYCH AFFECT NORMAL . LUNGS: LUNG TEJADA ARE CLEAR TO AUSCULTATION BILATERALLY. GOOD MOVEMENT OF AIR . HEART: S1, S2 IN A REGULAR RATE AND RHYTHM. NO SIGNIFICANT MURMURS, RUBS OR GALLOPS NOTED . MUSCULOSKELETAL: MUSCLE STRENGTH TESTING 4/5 BILATERAL LOWER EXTREMITIES. LUMBAR SACRAL SPINE TRIGGER POINTS:, ELICITED WITH PALPATION OVER LUMBAR PARAVERTEBRAL MUSCLES AND RESTRICTION OF ROM IN THIS AREA. DIAGNOSTIC TESTS REVIEWED MRI L/S SPINE-2013. ASSESSMENTS SPONDYLOSIS OF LUMBAR REGION WITHOUT MYELOPATHY OR RADICULOPATHY - M47.816 TREATMENT SPONDYLOSIS OF LUMBAR REGION WITHOUT MYELOPATHY OR RADICULOPATHY CONTINUE PERCOCET TABLET, 5-325 MG, 1-2, ORALLY, EVERY 6 -8 HRS PRN PAIN MDD=6 CHRONIC PAIN CONTINUE CYCLOBENZAPRINE HCL TABLET, 10 MG, 1 TABLET NEEDED, ORALLY, EVERY 6 HOURS REFILL CYMBALTA CAPSULE DELAYED RELEASE PARTICLES, 60 MG, 1 CAPSULE, ORALLY, ONCE A DAY, 30 DAY(S), 30 CAPSULE, REFILLS 5 NOTES: TPI LOW BACK, ISTOP REGISTRY REVIEWED AND DEMONSTRATES COMPLLIANCE. BRINGS IN MEDICATIONS WHICH IS APPROPRIATE FOR WHAT WAS DISPENSED. RECENT URINE TOXICOLOGY REVIEWED. NO UNAUTHORIZED MEDICATIONS. NO ILLICIT SUBSTANCES AND PRESCRIBED MEDICATIONS WERE PRESENT. , RISKS AND BENEFITS OF NARCOTIC/OPIOD MEDICATIONS WERE REVIEWED WITH PATIENT - THIS INCLUDES BUT IS NOT LIMITED TO RISK OF DEPENDANCE/DEVELOPMENT OF ADDICTION, MOOD DISTURBANCE AND DEPRESSION, OSTEOPOROSIS, HORMONAL AND LABIDAL CHANGES, RESPIRATORY DEPRESSION AND . PATIENT IS ADVISED NOT TO DRIVE OR DRINK ALCOHOL WHILE ON THESE MEDICATIONS. PREVENTIVE MEDICINE PAIN CLINIC TEACHING: PROCEDURE TEACHING PT GIVEN WRITTEN AND VERBAL PRE-PROCEDURE INSTRUCTIONS. PT VERBALIZES UNDERSTANDING OF ALL INSTRUCTIONS. BRETT LOPEZ 11/20/2018 10:32:56 AM > . PROCEDURE CODES FA211 ESTABILISHED PATIENT [facility] CHAR[facility] DISPOSITION & COMMUNICATION FOLLOW UP GET SOS MRI L/S SPINE DONE LAST WEEK (REASON: TPI LOW BACK F/U STACEY POST/REVIEW MRI) ELECTRONICALLY SIGNED BY CHRISTINA LOCO ON 12/04/2018 AT 04:50 PM EDT DISCLAIMER : THIS IS A VISIT SUMMARY EXTRACTED FROM THE [employer] Mail CHART. IT IS NOT A COPY OF THE [employer] PROGRESS NOTE. CHARMAINE
== END ==
LOC: M PAIN 08:45
PROVIDERS: ATTEND Nurse Practitioner Family
DX: M47.816 Spondylosis without myelopathy or radiculopathy, lumbar region (principal); G89.29 Other chronic pain; J45.909 Unspecified asthma, uncomplicated; G43.909 Migraine, unspecified, not intractable, without status migrainosus; K21.9 Gastro-esophageal reflux disease without esophagitis; Z86.59 Personal history of other mental and behavioral disorders; G47.33 Obstructive sleep apnea (adult) (pediatric); Z88.0 Allergy status to penicillin; Z88.1 Allergy status to other antibiotic agents; Z88.8 Allergy status to other drugs, medicaments and biological substances; Z91.09 Other allergy status, other than to drugs and biological substances; Z79.51 Long term (current) use of inhaled steroids; Z79.891 Long term (current) use of opiate analgesic; Z79.899 Other long term (current) drug therapy

== ENCOUNTER → 2019-03-27 | Outpatient (CLI) | payer OTHER ==
[~2019-03-27] MED LIST changes: -DULO1CAP3 PO; +DULO1CAP6 PO
--- NOTE | 2019-03-29 00:21 | ECWPNPC ---
PATIENT NAME: ARLETTE BORJA : 1970 GENDER: FEMALE VISIT DATE: 03/27/2019 DISCHARGE DATE: 03/27/19 1117 VISIT LOCKED DATE TIME: PHYSICIAN: ROXANNA ESPINOSA RESOURCE: ROXANNA ESPINOSA REASON FOR APPOINTMENT 1. BACK/JOINT PAIN HISTORY OF PRESENT ILLNESS HISTORY OF PRESENT ILLNESS: PAIN THE PATIENT DESCRIBES THE PAIN... 48 YEAR OLD FEMALE IN FOR CHRONIC PAIN FOLLOW UP. SHE RATES HER PAIN AT A 8/10 CURRENTLY AND DESCRIBES IT ACHING, SHARP, BURNING, STABBING, AND SORE. SHE WOULD LIKE TO DISCUSS A REPEAT RFA PROCEDURE. FALL RISK SCREENING: SCREENING :NO FALLS REPORTED IN THE LAST YEAR CURRENT MEDICATIONS TAKING MAXALT 10 MG TABLET 1 TABLET AT ON SET OF INFANTE, MAY REPEAT X 1 AFTER 2 HOURS ORALLY TWICE A DAY NEEDED, MDD=2 TAKING SALINE AEROSOL SOLUTION NASAL SPRAY TID PRN TAKING MULTIVITAMIN TABLET CHEWABLE ORALLY ONCE DAILY TAKING SM ARTHRITIS PAIN RELIEF 650 MG TABLET EXTENDED RELEASE 2 TABLETS NEEDED ORALLY TAKE 2 TABS Q 2-8 HRS PRN PAIN MDD=6 TAKING INCRUSE ELLIPTA 62.5 MCG/INH AEROSOL POWDER BREATH ACTIVATED 1 PUFF INHALATION ONCE A DAY TAKING SINGULAIR 10 MG TABLET 1 TABLET IN THE EVENING ORALLY ONCE A DAY TAKING FLUTICASONE PROPIONATE 50 MCG/ACT SUSPENSION 1 SPRAY IN EACH NOSTRIL NASALLY TWICE A DAY TAKING LORATADINE 10 MG TABLET 1 TABLET ORALLY ONCE A DAY TAKING KLONOPIN 0.5 MG TABLET 1/2 TABLET ORALLY TWICE A DAY PRN TAKING WELLBUTRIN XL 300 MG TABLET EXTENDED RELEASE 24 HOUR 1 TABLET IN THE MORNING ORALLY ONCE A DAY, NOTES: TAKES IWTH 150MG FOR TOTAL OF 450MG TAKING MAGNESIUM 400 MG TABLET 1 TABLET ORALLY ONCE A DAY TAKING NEBULIZER AIR TUBE/PLUGS - MISCELLANEOUS DIRECTED DX CODE:J45.909 DIRECTED TAKING FERROUS GLUCONATE 325 (36 FE) MG TABLET 1 TABLET ORALLY ONCE A DAY TAKING XOPENEX HFA AEROSOL EVERY 6 HR NEEDED TAKING XOPENEX 1.25 MG/3ML NEBULIZATION SOLUTION 3 ML INHALATION EVERY 6 HRS PRN TAKING RANITIDINE HCL 150 MG CAPSULE 1 CAPSULE AT BEDTIME ORALLY ONCE A DAY TAKING DRISDOL 65937 UNIT CAPSULE 1 CAPSULE ORALLY ONCE A WEEK TAKING ACETAMINOPHEN ER 650 MG TABLET EXTENDED RELEASE 2 TABLETS NEEDED ORALLY EVERY 8 HRS TAKING WELLBUTRIN XL 150 MG TABLET EXTENDED RELEASE 24 HOUR 1 TABLET IN THE MORNING ORALLY ONCE A DAY, NOTES: TAKES IWTH 300MG FOR TOTAL OF 450MG DAILY TAKING MOVE FREE JOINT HEALTH ADVANCE - TABLET ORALLY DAILY TAKING TOPIRAMATE 100 MG TABLET 1 TABLET ORALLY TWICE A DAY, MDD=2 TAKING PANTOPRAZOLE SODIUM 40 MG TABLET DELAYED RELEASE 1 TABLET ORALLY TWICE A DAY TAKING FLUTICASONE-SALMETEROL 230-21 MCG/ACT AEROSOL 2 PUFFS INHALATION TWICE A DAY TAKING CYMBALTA 60 MG CAPSULE DELAYED RELEASE PARTICLES 1 CAPSULE ORALLY ONCE A DAY TAKING CYCLOBENZAPRINE HCL 10 MG TABLET 1 TABLET NEEDED ORALLY FOR SPASMS EVERY 6 HOURS MDD3 TAKING VITAMIN D (ERGOCALCIFEROL) 50065 UNIT CAPSULE TAKE 1 CAPSULE BY MOUTH ONCE A WEEK TAKING PERCOCET 5-325 MG TABLET 1-2 ORALLY EVERY 6 -8 HRS PRN PAIN MDD=6 CHRONIC PAIN NOT-TAKING BREO ELLIPTA 200-25 MCG/INH AEROSOL POWDER BREATH ACTIVATED 1 PUFF INHALATION ONCE A DAY NOT-TAKING IBUPROFEN 600 MG TABLET 1 TABLET WITH FOOD OR MILK NEEDED ORALLY THREE TIMES A DAY MEDICATION LIST REVIEWED AND RECONCILED WITH THE PATIENT PAST MEDICAL HISTORY LT WRIST INJURY RECURRENT SINUSITIS BACK INJURY-2000(WORK)- L3 - 4 DISC HERNIATION - CHRONIC IDRIS PAIN MANAGED BY PAIN CLINIC ASTHMA - FOLLOWED BY PULMONARY SYRACUSE VITAMIN D DEFICIENCY ALLERGIES OSTEO NECROSIS BILATERAL KNEES MIGRAINES MULTINODULAR GOITER WITH LARGE MICROCALCIFIC NODES - S/P BIOPSY - BENIGN PER [facility] - REPEAT US 08/2017 RECOMMENDED OBESITY - MANAGED WITH PHENTERIMINE IN THE PAST VITAMIN D DEFICIENCY GERD/SMALL HH PER EGD 2016 ECHO 12/2016 - GRADE 1 LV DIASTOLIC DYSFUNCTION. NORMAL LV SIZE, THICKNESS AND WALL MOTION. EF 70%. POSSIBLE ELEVATED RIGHT VENTRICULAR SYSTOLIC PRESSURE DEPRESSION LESLEY ON CPAP ALLERGIES PENICILLIN (FOR ALLERGIES USE ONLY): HIVES - ALLERGY LEVAQUIN: HIVES,SWELLING - ALLERGY LYRICA: [employer] SWELLING - ALLERGY SUDAFED: HEART RACES - SIDE EFFECTS ALBUTEROL: HEART RACES - SIDE EFFECTS BACTRIM DS: HIVES - ALLERGY NICKEL: RASH - ALLERGY SURGICAL HISTORY SINUS 05/24/2012 LT WRIST-TEAR 10/02/2012 12/30/1998 LT WRIST-LIGAMENT RECONSTURCTION, ULNA SHORTENING 02/27/2013 RIGHT LEG VERICOSE VEIN SURGERY 11/2014 LEFT LEG NODULE REMOVAL BENIGN 11/2014 UPPER GI 07/2016 & 05/2018 FAMILY HISTORY FATHER: ALIVE, PROSTATE AT AGE OLDER THAN 50, DIAGNOSED WITH CANCER MOTHER: 62 YRS, COPD 5 P. AUNTS, TWO AFFECTED BY BREAST CA YOUNGER THAN AGE 50, ONE WITH BOTH BREASTS AFFECTED, BOTH ALIVE, GRANDMOTHER WITH BRAIN CANCER, AGE OF DX UNKNOWN, , ONE PATERNAL COUSIN WITH OVARIAN CANCER, AGE OF DX UNKNOWN, ALIVE.PT DOES NOT HAVE CONTACT WITH PATERNAL SIDE OF FAMILY. MOM\'S SISTER\'S SON WITH RENAL CANCER (COUSIN) - , LATE 40\'S MATERNAL UNCLE WITH RENAL CANCER, AGE OF DX UNKNOWN, M. GRANDMA WITH RENAL CANCER, AGE OF DX UNKNOWN, . SOCIAL HISTORY GENERAL: TOBACCO USE ARE YOU A:NONSMOKER HIV / HEP-C SCREENING HIV TEST OFFERED TO PATIENT:YES DATE OFFERED:11/02/2018 TEST ACCEPTED:NO REASON:PATIENT DECLINED BROCHURE PROVIDED TO PATIENTNO OTHERS AT HOME: DAUGHTER,JENISE. DIET: REGULAR. LANGUAGE LANGUAGES SPOKEN:WELSH NEW PATIENT PAIN DIARY TODAY'S VISITNOTES FROM 0-10, WHAT LEVEL IS YOUR PAIN TODAY?8 BMI CARE GOAL FOLLOW-UP ABOVE NORMAL BMI FOLLOW-UPDIETARY NEEDS EDUCATION, GIVING ENCOURAGEMENT TO EXERCISE, LIFESTYLE EDUCATION REGARDING DIET RECREATIONAL DRUG USE DRUG USE?NO EXERCISE: GYM 3 DAYS WEEKLY TREADMILL. LEARNING BARRIERS / SPECIAL NEEDS CHANGE FROM LAST VISIT?NO BARRIERS TO LEARNING?NO HEARING IMPAIRED?NO VISION IMPAIRED?YES READING COGNITIVELY IMPAIRED?NO :CORRECTIVE LENSES READINESS TO LEARN?YES LEARNING PREFERENCES?NO LEARNING CAPABILITIES PRESENT?YES EMOTIONAL BARRIERS?NO SPECIAL DEVICES?NO PATIENT MONITOR NEEDED?NO PAIN CLINIC PFS, CLERGY, PUBLIC HEALTH REFERRALS WAS THE PROVIDER NOTIFIED OF ANY PERTINENT INFO?YES HAS THE PATIENT BEEN EDUCATED REGARDING HIS/HER PLAN OF CARE?YES HAS THE PATIENT BEEN EDUCATED REGARDING PAIN, THE RISK FOR PAIN, THE IMPORTANCE OF EFFECTIVE PAIN MANAGEMENT, AND THE PAIN ASSESSMENT PROCESS?YES LATEX QUESTIONNAIRE LATEX ALLERGY : HAVE YOU EVER DEVELOPED ANY TYPE OF REACTION AFTER HANDLING LATEX PRODUCTS SUCH RUBBER GLOVES, CONDOMS, DIAPHRAGMS, BALLOONS, SOCKS, OR UNDERWEAR?NO LATEX ALLERGY : HAVE YOU EVER DEVELOPED ANY TYPE OF REACTION DURING OR AFTER DENTAL APPOINTMENT, VAGINAL/RECTAL EXAMINATION, SURGICAL PROCEDURE, OR ANY OTHER EXPOSURE?NO LATEX RISK : HAVE YOU EVER HAD ANY DIFFICULTY BREATHING OR HIVES AFTER EATING OR HANDLING ANY FRUITS, OR VEGETABLES; SUCH KIWI, BANANAS, STONE FRUITS, OR CHESTNUTSNO LATEX RISK : DO YOU HAVE A PREVIOUS PERSONAL HISTORY OF MORE THAN NINE SURGERIES, SPINA BIFIDA, OR REPEATED CATHERIZATIONS? NO LATEX RISK : ARE YOU FREQUENTLY EXPOSED TO LATEX PRODUCTS IN YOUR OCCUPATION?NO DATE ASKED : 03/27/2019 CAFFEINE CAFFEINE USE?YES COFFEE 1 CUP A DAY ADVANCE DIRECTIVE ADVANCE DIRECTIVE DISCUSSED WITH PATIENT:YES PT HAS NO ADVANCED DIRECTIVES, DECLINES INFORMATION OR ASSISTANCE AT THIS TIMR CHURCH [id number] PRESYBETERIAN NO CONFUCIANIST BELIEFS THAT WOULD IMPACT HEALTH CARE. MARITAL STATUS: .. ALCOHOL SCREENING DID YOU HAVE A DRINK CONTAINING ALCOHOL IN THE PAST YEAR?YES HOW OFTEN DID YOU HAVE SIX OR MORE DRINKS ON ONE OCCASION IN THE PAST YEAR?NEVER (0 POINTS) HOW MANY DRINKS DID YOU HAVE ON A TYPICAL DAY WHEN YOU WERE DRINKING IN THE PAST YEAR?1 OR 2 (0 POINTS) HOW OFTEN DID YOU HAVE A DRINK CONTAINING ALCOHOL IN THE PAST YEAR?TWO TO FOUR TIMES A MONTH (2 POINTS) POINTS2 INTERPRETATIONNEGATIVE OCCUPATION: UNEMPLOYED. SEXUAL HX HAD SEX IN THE LAST 12 MONTHS (VAGINAL, ORAL, OR ANAL)?YES WITHMEN ONLY LMP:11/02/18 HAVE YOU EVER HAD AN STD?NO REVIEWED WITH PT 04-19-18 BVREVIEWED WITH PT 06/21/18 0928 BVREVIEWED WITH PT 08/21/2018 1225 LAS. HOSPITALIZATION/MAJOR DIAGNOSTIC PROCEDURE 12/30/1998 BRONCHITIS/ASTHMA 11/27 REVIEW OF SYSTEMS REVIEWED BY: PROVIDER: DALLIN ESPINOSA JAILER/TRAINING OFFICER-C . CONSTITUTIONAL: ANY CHANGE IN YOUR MEDICAL CONDITION? NO . CHILLS NO . FEVER NO . INFECTION: DO YOU HAVE NEW INFECTIONS? NO . DO YOU HAVE HISTORY OF MRSA? NO . MUSCULOSKELETAL: ANY NEW PATTERNS OF PAIN OR NUMBNESS? NO . GASTROENTEROLOGY: ANY NEW CHANGE IN BOWEL CONTROL? NO . GENITOURINARY: ANY NEW CHANGE IN BLADDER CONTROL? NO . IS THERE A CHANCE YOU COULD BE ? NO . HEMATOLOGY/LYMPH: DO YOU TAKE ANY BLOOD THINNERS? (FOR EXAMPLE- COUMADIN, PLAVIX, AGGRENOX, PLATEL, PRADAXA, OR XARELTO) NO . WHEN WAS YOUR LAST DOSE? DATE: TIME: . NEUROLOGY: HAVE YOU FALLEN IN THE PAST 12 MONTHS? NO . ANY NEW EXTREMITY NUMBNESS OR WEAKNESS? YES, PAIN IN BUTTOCKS AND RADIATING DOWN LEGS HAS INTENSIFIED . CARDIOLOGY: DO YOU HAVE A PACEMAKER OR DEFIBRILLATOR? NO . RESPIRATORY: HAVE YOU BEEN SICK IN THE PAST WEEK? NO . FEVER NO . FLU LIKE SYMPTOMS? NO . COUGH NO . INTEGUMENTARY: DO YOU HAVE ANY RASHES OR OPEN SORES? NO . ALLERGIC/IMMUNO: ARE YOU ALLERGIC TO IV DYE? NO . ANY NEW ALLERGIES? NO . PSYCHIATRIC: DO YOU HAVE THOUGHTS OF HURTING YOURSELF OR SOMEONE ELSE? NO . ARE YOU ABUSED, NEGLECTED, OR IN AN UNSAFE ENVIRONMENT? NO . ENDOCRINOLOGY: ARE YOU DIABETIC? NO . OTHER: DO YOU NEED ANY PRESCRIPTIONS? YES, FLEXERIL . IF YES, PLEASE LIST: ____ . ANY NEW PROBLEMS WITH YOUR MEDICATIONS? NO . WHEN DID YOU LAST EAT? ____ . WHEN DID YOU LAST DRINK? ____ . WHAT DID YOU LAST DRINK? ____ . NAME OF PERSON DRIVING YOU HOME? ____ . DO YOU HAVE ANY OTHER QUESTIONS OR CONCERNS NO . VITAL SIGNS WT 207.8 LBS, HT 63 IN, BMI 36.81 INDEX, BP 127/67 MM HG, HR 84 /MIN, RR 18 /MIN, TEMP 96.6 F, OXYGEN SAT % 99%, SAFE IN ENV? (Y/N) Y, NA INITIALS AW 1017, REVIEWED BY: MALACHI. EXAMINATION GENERAL EXAMINATION: GENERALNO ACUTE DISTRESS, WELL NOURISHED AND HYDRATED. PSYCHAPPROPRIATE MOOD AND AFFECT . LUNGS:CLEAR TO AUSCULTATION BILATERALLY, NO WHEEZES, RHONCHI, RALES. HEART:NO MURMURS, REGULAR RATE AND RHYTHM. BACK:POINT TENDER OVER LUMBAR SPINE. SKIN SHOWS NO ERYTHEMA, ECCHYMOSIS, INCREASED WARMTH, AND/OR SKIN ERUPTIONS. +SLR, INCREASED PAIN WITH FACET LOADING. . MUSCULOSKELETAL:EQUAL STRENGTH OF THE LOWER EXTREMITIES BILATERALLY. . ASSESSMENTS SPONDYLOSIS OF LUMBOSACRAL REGION WITHOUT MYELOPATHY OR RADICULOPATHY - M47.817 (PRIMARY) TREATMENT SPONDYLOSIS OF LUMBOSACRAL REGION WITHOUT MYELOPATHY OR RADICULOPATHY NOTES: LEFT DIAGNOSTIC FACET BLOCK #1 L4-L5, L5-S1. CLINICAL NOTES: 48 YEAR OLD FEMALE IN FOR CHRONIC PAIN FOLLOW UP. GIVEN PRESENTING SYMPTOMS AND RESULTS OF PHYSICAL EXAMINATION RECOMMENDED DIAGNOSTIC FACET BLOCK WITH POST PROCEDURAL FOLLOW UP. PATIENT HAS EXPRESSED UNDERSTANDING OF AND WAS IN AGREEMENT WITH TREATMENT PLAN. GIVEN TIME TO ASK QUESTIONS AND EXPRESS CONCERNS. , [employer] REGISTRY REVIEWED AND DEMONSTRATES COMPLLIANCE. (REF # [id number] ) BRINGS IN MEDICATIONS WHICH IS APPROPRIATE FOR WHAT WAS DISPENSED. RECENT URINE TOXICOLOGY REVIEWED. NO UNAUTHORIZED MEDICATIONS. NO ILLICIT SUBSTANCES AND PRESCRIBED MEDICATIONS WERE PRESENT. OTHERS REFILL CYCLOBENZAPRINE HCL TABLET, 10 MG, 1 TABLET NEEDED, ORALLY FOR SPASMS, EVERY 6 HOURS MDD3, 10 DAYS, 30, REFILLS 0 PROCEDURE CODES FA211 ESTABILISHED PATIENT [facility] FACILITY CHARGE DISPOSITION & COMMUNICATION FOLLOW UP POST PROCEDURE (REASON: LEFT DIAGNOSTIC FACET BLOCK #1 L4-L5, L5-S1) ELECTRONICALLY SIGNED BY CHRISTINA TREJO ON 03/28/2019 AT 09:00 AM EDT DISCLAIMER : THIS IS A VISIT SUMMARY EXTRACTED FROM THE [employer] CHART. IT IS NOT A COPY OF THE [employer] PROGRESS NOTE. MTDD
== END ==
LOC: M PAIN 10:00
PROVIDERS: ATTEND Family Medicine
DX: M47.817 Spondylosis without myelopathy or radiculopathy, lumbosacral region (principal); G89.29 Other chronic pain; J45.909 Unspecified asthma, uncomplicated; E55.9 Vitamin D deficiency, unspecified; G43.909 Migraine, unspecified, not intractable, without status migrainosus; K21.9 Gastro-esophageal reflux disease without esophagitis; Z86.59 Personal history of other mental and behavioral disorders; G47.33 Obstructive sleep apnea (adult) (pediatric); Z88.0 Allergy status to penicillin; Z88.1 Allergy status to other antibiotic agents; Z88.8 Allergy status to other drugs, medicaments and biological substances; Z91.09 Other allergy status, other than to drugs and biological substances; Z79.51 Long term (current) use of inhaled steroids; Z79.891 Long term (current) use of opiate analgesic; Z79.899 Other long term (current) drug therapy

== ENCOUNTER 2019-04-18 14:02 | Emergency (ER) | payer OTHER ==
[~2019-04-18] VITALS: Ht 160 cm; Wt 95.1 kg
[2019-04-18] MEDS ORDERED: FLUT1INH3 (14:29)
[2019-04-18 14:44] LABS: BASO % 1.2 % (0.0-1.0); EOS # 0.1 10^3/uL (0.0-0.5); EOS % 2.1 % (0.0-3.0); HEMATOCRIT 34.8 % (36.0-47.0); HEMOGLOBIN 10.9 g/dl (12.0-15.5); LYMPH # 1.2 10^3/uL (1.5-5.0); LYMPH % 36.5 % (24.0-44.0); MEAN CORPUSCULAR HEMOGLOBIN 25.1 pg (27.0-33.0); MEAN CORPUSCULAR HGB CONC 31.3 g/dl (32.0-36.5); MONO # 0.4 10^3/uL (0.0-0.8); MONO % 10.7 % (0.0-5.0); NEUTROPHILS # 1.6 10^3/uL (1.5-8.5); NEUTROPHILS % 49.2 % (36.0-66.0); PLATELET COUNT, AUTOMATED 293 10^3/uL (150-450); RED BLOOD COUNT 4.35 10^6/uL (4.00-5.40); WHITE BLOOD COUNT 3.3 10^3/uL (4.0-10.0)
[2019-04-18 14:55] LABS: INR 1.02; PROTHROMBIN TIME 13.1 SECONDS (11.8-14.0)
[2019-04-18 14:58] LABS: D-DIMER QUANT 362.01 ng/ml (<500)
--- NOTE | 2019-04-18 15:05 | REP ---
Clinical: Acute chest pain . Comparison: 03/06/2018 . Findings: The mediastinum and cardiac silhouette are stable and within normal limits for portable technique. The lung haynes are clear without acute consolidation, effusion, or pneumothorax. Skeletal structures are intact. Impression: No acute cardiopulmonary process appreciated. Electronically Signed by Daryl Rubio MD 04/18/2019 02:56 P
[2019-04-18 15:11] LABS: ALBUMIN 3.6 GM/DL (3.2-5.2); ALT/SGPT 30 U/L (12-78); BILIRUBIN,DIRECT 0.1 MG/DL (0.0-0.2); BILIRUBIN,TOTAL 0.3 MG/DL (0.2-1.0); BLOOD UREA NITROGEN 12 MG/DL (7-18); CALCIUM LEVEL 9.1 MG/DL (8.5-10.1); CARBON DIOXIDE LEVEL 24 MEQ/L (21-32); CHLORIDE LEVEL 110 MEQ/L (98-107); CK-MB VALUE MASS < 1.0 NG/ML (<3.6); CPK CREATINE PHOSPHOKINASE 57 U/L (26-192); CREATININE FOR GFR 0.86 MG/DL (0.55-1.30); GLOMERULAR FILTRATION RATE > 60.0 (>58); GLUCOSE, FASTING 97 MG/DL (70-100); LIPASE 124 U/L (73-393); MB/CK RELATIVE INDEX 1.75 (< OR =4); POTASSIUM SERUM 3.7 MEQ/L (3.5-5.1); SODIUM LEVEL 141 MEQ/L (136-145); TOTAL PROTEIN 7.1 GM/DL (6.4-8.2); TROPONIN I < 0.02 NG/ML (< 0.10)
[2019-04-18] MEDS ORDERED: ISOVUE-370 76% 100ML VIAL (Q9967) As Ordered ONE (15:45)
--- NOTE | 2019-04-18 16:11 | REP ---
Clinical: Chest pain and shortness of breath . Technique: Axial contrast enhanced images from the thoracic inlet to the upper abdomen using 100 ml Isovue 370 intravenous contrast material with multiplanar re-formations. Findings: Satisfactory enhancement of the pulmonary vasculature is achieved the examination is somewhat limited due to respiratory motion artifact. No obvious filling defects are identified to suggest pulmonary embolus. Thoracic aorta is normal. Cardiomegaly is noted without pericardial effusion. The bilateral lung haynes are well aerated and clear without consolidation, pleural effusion or pneumothorax. Tracheobronchial tree is patent. No adenopathy noted. Surrounding musculoskeletal structures intact and old healed rib fractures are noted. Impression: No evidence for pulmonary embolus. No acute mediastinal or pleural parenchymal process. Electronically Signed by Daryl Rubio MD 04/18/2019 04:03 P
[2019-04-18 16:33] VITALS: BP 125/72
--- NOTE | 2019-04-19 07:08 | ECGEPIP ---
[facility] - ED Test Date: 2019-04-18 Pat Name: ARLETTE BORJA Department: Room: - Gender: Female Nursery Manager: : 1970 Requested By: Siddhartha Arreguin Order Number: [id number] Reading MD: Siddhartha Everett Measurements Intervals Angelica Rate: 80 P: 40 DC: 147 QRS: -9 QRSD: 98 T: 30 QT: 372 QTc: 432 Interpretive Statements SINUS RHYTHM INCOMPLETE RIGHT BUNDLE BRANCH BLOCK MINIMAL VOLTAGE CRITERIA FOR LVH, CONSIDER NORMAL VARIANT SIMILAR TO 11/03/15 Electronically Signed on 04-19-2019 7:07:40 EDT by Siddhartha Everett
== END 2019-04-18 16:54 | disposition home or self-care (01) ==
LOC: M ED 14:02
DX: R07.89 Other chest pain (principal); R06.02 Shortness of breath; R22.43 Localized swelling, mass and lump, lower limb, bilateral; I45.19 Other right bundle-branch block; J45.909 Unspecified asthma, uncomplicated; F33.9 Major depressive disorder, recurrent, unspecified; F41.9 Anxiety disorder, unspecified; K21.9 Gastro-esophageal reflux disease without esophagitis; E07.9 Disorder of thyroid, unspecified; Z79.899 Other long term (current) drug therapy; Z88.0 Allergy status to penicillin; Z88.1 Allergy status to other antibiotic agents; Z88.8 Allergy status to other drugs, medicaments and biological substances
CPT/HCPCS: 36415; 71045; 71275; 80053; 82248; 82550; 82553; 83690; 85025; 85379; 85610; 93005; 99284; Q9967

== ENCOUNTER → 2019-09-10 | Outpatient (CLI) | payer OTHER ==
[~2019-09-10] MED LIST changes: +FLUT1INH3
--- NOTE | 2019-09-12 02:28 | ECWPNPC ---
PATIENT NAME: ARLETTE BORJA : 1970 GENDER: FEMALE VISIT DATE: 09/10/2019 DISCHARGE DATE: 09/10/19 1135 VISIT LOCKED DATE TIME: PHYSICIAN: ROXANNA ESPINOSA RESOURCE: ROXANNA ESPINOSA REASON FOR APPOINTMENT 1. BACK PAIN HISTORY OF PRESENT ILLNESS HISTORY OF PRESENT ILLNESS: PAIN THE PATIENT DESCRIBES THE PAIN... 48-YEAR-OLD FEMALE IN FOR CHRONIC PAIN FOLLOW-UP. PATIENT RATES HER PAIN CURRENTLY AT A 10 OUT OF 10 AND DESCRIBES IT ACHING, SHARP, BURNING, STABBING, AND SHOOTING. PATIENT HAS NOT BEEN ON HER PERCOCET RECENTLY SHE HAD NOT BEEN SEEN IN CLINIC FOR HER FOLLOW-UP APPOINTMENTS. FALL RISK SCREENING: SCREENING :NO FALLS REPORTED IN THE LAST YEAR CURRENT MEDICATIONS TAKING MAXALT 10 MG TABLET 1 TABLET AT ON SET OF INFANTE, DECEMBER REPEAT X 1 AFTER 2 HOURS ORALLY TWICE A DAY NEEDED, MDD=2 TAKING SALINE AEROSOL SOLUTION NASAL SPRAY TID PRN TAKING MULTIVITAMIN TABLET CHEWABLE ORALLY ONCE DAILY TAKING SM ARTHRITIS PAIN RELIEF 650 MG TABLET EXTENDED RELEASE 2 TABLETS NEEDED ORALLY TAKE 2 TABS Q 2-8 HRS PRN PAIN MDD=6 TAKING FLUTICASONE PROPIONATE 50 MCG/ACT SUSPENSION 1 SPRAY IN EACH NOSTRIL NASALLY TWICE A DAY TAKING LORATADINE 10 MG TABLET 1 TABLET ORALLY ONCE A DAY TAKING KLONOPIN 0.5 MG TABLET 1/2 TABLET ORALLY TWICE A DAY PRN TAKING WELLBUTRIN XL 300 MG TABLET EXTENDED RELEASE 24 HOUR 1 TABLET IN THE MORNING ORALLY ONCE A DAY, NOTES: TAKES IWTH 150MG FOR TOTAL OF 450MG TAKING MAGNESIUM 400 MG TABLET 1 TABLET ORALLY ONCE A DAY TAKING NEBULIZER AIR TUBE/PLUGS - MISCELLANEOUS DIRECTED DX CODE:J45.909 DIRECTED TAKING FERROUS GLUCONATE 325 (36 FE) MG TABLET 1 TABLET ORALLY ONCE A DAY TAKING XOPENEX HFA AEROSOL EVERY 6 HR NEEDED TAKING RANITIDINE HCL 150 MG CAPSULE 1 CAPSULE AT BEDTIME ORALLY ONCE A DAY TAKING DRISDOL 29940 UNIT CAPSULE 1 CAPSULE ORALLY ONCE A WEEK TAKING ACETAMINOPHEN ER 650 MG TABLET EXTENDED RELEASE 2 TABLETS NEEDED ORALLY EVERY 8 HRS TAKING WELLBUTRIN XL 150 MG TABLET EXTENDED RELEASE 24 HOUR 1 TABLET IN THE MORNING ORALLY ONCE A DAY, NOTES: TAKES IWTH 300MG FOR TOTAL OF 450MG DAILY TAKING [facility] [employer] [facility] ADVANCE - TABLET ORALLY DAILY TAKING FLUTICASONE-SALMETEROL 230-21 MCG/ACT AEROSOL 2 PUFFS INHALATION TWICE A DAY TAKING CYCLOBENZAPRINE HCL 10 MG TABLET 1 TABLET NEEDED ORALLY FOR SPASMS EVERY 6 HOURS MDD3 TAKING XOPENEX 1.25 MG/3ML NEBULIZATION SOLUTION 3 ML INHALATION EVERY 6 HRS PRN TAKING PERCOCET 5-325 MG TABLET 1-2 ORALLY EVERY 6 -8 HRS PRN PAIN MDD=6 CHRONIC PAIN TAKING TOPIRAMATE 100 MG TABLET 1 TABLET ORALLY TWICE A DAY, MDD=2 TAKING PANTOPRAZOLE SODIUM 40 MG TABLET DELAYED RELEASE 1 TABLET ORALLY TWICE A DAY TAKING CYMBALTA 60 MG CAPSULE DELAYED RELEASE PARTICLES 1 CAPSULE ORALLY ONCE A DAY TAKING SINGULAIR 10 MG TABLET 1 TABLET IN THE EVENING ORALLY ONCE A DAY NOT-TAKING INCRUSE ELLIPTA 62.5 MCG/INH AEROSOL POWDER BREATH ACTIVATED 1 PUFF INHALATION ONCE A DAY NOT-TAKING VITAMIN D (ERGOCALCIFEROL) 47503 UNIT CAPSULE TAKE 1 CAPSULE BY MOUTH ONCE A WEEK , NOTES: DUPLICATE NOT-TAKING BREO ELLIPTA 200-25 MCG/INH AEROSOL POWDER BREATH ACTIVATED 1 PUFF INHALATION ONCE A DAY NOT-TAKING IBUPROFEN 600 MG TABLET 1 TABLET WITH FOOD OR MILK NEEDED ORALLY THREE TIMES A DAY MEDICATION LIST REVIEWED AND RECONCILED WITH THE PATIENT PAST MEDICAL HISTORY LT WRIST INJURY RECURRENT SINUSITIS BACK INJURY-2000(WORK)- L3 - 4 DISC HERNIATION - CHRONIC IDRIS PAIN MANAGED BY PAIN CLINIC ASTHMA - FOLLOWED BY PULMONARY [place] VITAMIN D DEFICIENCY ALLERGIES OSTEO NECROSIS BILATERAL KNEES MIGRAINES MULTINODULAR GOITER WITH LARGE MICROCALCIFIC NODES - S/P BIOPSY - BENIGN PER [facility] - REPEAT US 08/2017 RECOMMENDED OBESITY - MANAGED WITH PHENTERIMINE IN THE PAST VITAMIN D DEFICIENCY GERD/SMALL HH PER EGD 2016 ECHO 12/2016 - GRADE 1 LV DIASTOLIC DYSFUNCTION. NORMAL LV SIZE, THICKNESS AND WALL MOTION. EF 70%. POSSIBLE ELEVATED RIGHT VENTRICULAR SYSTOLIC PRESSURE DEPRESSION LESLEY ON CPAP ALLERGIES PENICILLIN (FOR ALLERGIES USE ONLY): HIVES - ALLERGY LEVAQUIN: HIVES,SWELLING - ALLERGY LYRICA: [employer] SWELLING - ALLERGY SUDAFED: HEART RACES - SIDE EFFECTS ALBUTEROL: HEART RACES - SIDE EFFECTS BACTRIM DS: HIVES - ALLERGY NICKEL: RASH - ALLERGY SURGICAL HISTORY SINUS 05/24/2012 LT WRIST-TEAR 10/02/2012 12/30/1998 LT WRIST-LIGAMENT RECONSTURCTION, ULNA SHORTENING 02/27/2013 RIGHT LEG VERICOSE VEIN SURGERY 11/2014 LEFT LEG NODULE REMOVAL BENIGN 11/2014 UPPER GI 07/2016 & 05/2018 FAMILY HISTORY FATHER: ALIVE, PROSTATE AT AGE OLDER THAN 50, DIAGNOSED WITH OTHER MALIGNANT NEOPLASM OF UNSPECIFIED SITE MOTHER: 62 YRS, COPD 5 P. AUNTS, TWO AFFECTED BY BREAST CA YOUNGER THAN AGE 50, ONE WITH BOTH BREASTS AFFECTED, BOTH ALIVE, GRANDMOTHER WITH BRAIN CANCER, AGE OF DX UNKNOWN, , ONE PATERNAL COUSIN WITH OVARIAN CANCER, AGE OF DX UNKNOWN, ALIVE.PT DOES NOT HAVE CONTACT WITH PATERNAL SIDE OF FAMILY. MOM\'S SISTER\'S SON WITH RENAL CANCER (COUSIN) - , LATE 40\'S MATERNAL UNCLE WITH RENAL CANCER, AGE OF DX UNKNOWN, M. GRANDMA WITH RENAL CANCER, AGE OF DX UNKNOWN, . SOCIAL HISTORY GENERAL: TOBACCO USE ARE YOU A:NONSMOKER HIV / HEP-C SCREENING HIV TEST OFFERED TO PATIENT:YES DATE OFFERED:11/02/2018 TEST ACCEPTED:NO REASON:PATIENT DECLINED BROCHURE PROVIDED TO PATIENTNO OTHERS AT HOME: DAUGHTER,JENISE. DIET: REGULAR. LANGUAGE LANGUAGES SPOKEN:KINYARWANDA NEW PATIENT PAIN DIARY TODAY'S VISITNOTES FROM 0-10, WHAT LEVEL IS YOUR PAIN TODAY?8 BMI CARE GOAL FOLLOW-UP ABOVE NORMAL BMI FOLLOW-UPDIETARY NEEDS EDUCATION, GIVING ENCOURAGEMENT TO EXERCISE, LIFESTYLE EDUCATION REGARDING DIET RECREATIONAL DRUG USE DRUG USE?NO EXERCISE: GYM 3 DAYS WEEKLY TREADMILL. LEARNING BARRIERS / SPECIAL NEEDS CHANGE FROM LAST VISIT?NO BARRIERS TO LEARNING?NO HEARING IMPAIRED?NO VISION IMPAIRED?YES READING COGNITIVELY IMPAIRED?NO :CORRECTIVE LENSES READINESS TO LEARN?YES LEARNING PREFERENCES?NO LEARNING CAPABILITIES PRESENT?YES EMOTIONAL BARRIERS?NO SPECIAL DEVICES?NO YOUTH CARE SPECIALIST NEEDED?NO PAIN CLINIC PFS, CLERGY, PUBLIC HEALTH REFERRALS WAS THE PROVIDER NOTIFIED OF ANY PERTINENT INFO?YES HAS THE PATIENT BEEN EDUCATED REGARDING HIS/HER PLAN OF CARE?YES HAS THE PATIENT BEEN EDUCATED REGARDING PAIN, THE RISK FOR PAIN, THE IMPORTANCE OF EFFECTIVE PAIN MANAGEMENT, AND THE PAIN ASSESSMENT PROCESS?YES LATEX QUESTIONNAIRE LATEX ALLERGY : HAVE YOU EVER DEVELOPED ANY TYPE OF REACTION AFTER HANDLING LATEX PRODUCTS SUCH RUBBER GLOVES, CONDOMS, DIAPHRAGMS, BALLOONS, SOCKS, OR UNDERWEAR?NO LATEX ALLERGY : HAVE YOU EVER DEVELOPED ANY TYPE OF REACTION DURING OR AFTER DENTAL APPOINTMENT, VAGINAL/RECTAL EXAMINATION, SURGICAL PROCEDURE, OR ANY OTHER EXPOSURE?NO LATEX RISK : HAVE YOU EVER HAD ANY DIFFICULTY BREATHING OR HIVES AFTER EATING OR HANDLING ANY FRUITS, OR VEGETABLES; SUCH KIWI, BANANAS, STONE FRUITS, OR CHESTNUTSNO LATEX RISK : DO YOU HAVE A PREVIOUS PERSONAL HISTORY OF MORE THAN NINE SURGERIES, SPINA BIFIDA, OR REPEATED CATHERIZATIONS? NO LATEX RISK : ARE YOU FREQUENTLY EXPOSED TO LATEX PRODUCTS IN YOUR OCCUPATION?NO DATE ASKED : 03/27/2019 CAFFEINE CAFFEINE USE?YES COFFEE 1 CUP A DAY ADVANCE DIRECTIVE ADVANCE DIRECTIVE DISCUSSED WITH PATIENT:YES 09/10/2019 PT HAS NO ADVANCED DIRECTIVES, DECLINES INFORMATION OR ASSISTANCE AT THIS TIME. JS HINDU [id number] ANABAPTISM NO YARSANISM BELIEFS THAT WOULD IMPACT HEALTH CARE. MARITAL STATUS: .. ALCOHOL SCREENING DID YOU HAVE A DRINK CONTAINING ALCOHOL IN THE PAST YEAR?YES HOW OFTEN DID YOU HAVE SIX OR MORE DRINKS ON ONE OCCASION IN THE PAST YEAR?NEVER (0 POINTS) HOW MANY DRINKS DID YOU HAVE ON A TYPICAL DAY WHEN YOU WERE DRINKING IN THE PAST YEAR?1 OR 2 (0 POINTS) HOW OFTEN DID YOU HAVE A DRINK CONTAINING ALCOHOL IN THE PAST YEAR?TWO TO FOUR TIMES A MONTH (2 POINTS) POINTS2 INTERPRETATIONNEGATIVE OCCUPATION: UNEMPLOYED. SEXUAL HX HAD SEX IN THE LAST 12 MONTHS (VAGINAL, ORAL, OR ANAL)?YES WITHMEN ONLY LMP:11/02/18 HAVE YOU EVER HAD AN STD?NO REVIEWED WITH PT 04-19-18 BVREVIEWED WITH PT 06/21/18 0928 BVREVIEWED WITH PT 08/21/2018 1225 LASREVIEWED WITH PATIENT 09/10/2019 1033 JS. HOSPITALIZATION/MAJOR DIAGNOSTIC PROCEDURE 12/30/1998 BRONCHITIS/ASTHMA 11/27 REVIEW OF SYSTEMS REVIEWED BY: PROVIDER: DALLIN VASQUEZ-C . CONSTITUTIONAL: ANY CHANGE IN YOUR MEDICAL CONDITION? NO . CHILLS NO . FEVER NO . INFECTION: DO YOU HAVE NEW INFECTIONS? NO . DO YOU HAVE HISTORY OF MRSA? NO . MUSCULOSKELETAL: ANY NEW PATTERNS OF PAIN OR NUMBNESS? YES, STATES PAIN HAS INCREASED AND IS MORE CONSTANT; ALSO RADIATING DOWN THE LEFT LEG . GASTROENTEROLOGY: ANY NEW CHANGE IN BOWEL CONTROL? NO . GENITOURINARY: ANY NEW CHANGE IN BLADDER CONTROL? YES, URINARY URGENCY WITH SOME LEAKAGE AT TIMES . IS THERE A CHANCE YOU COULD BE ? NO . HEMATOLOGY/LYMPH: DO YOU TAKE ANY BLOOD THINNERS? (FOR EXAMPLE- COUMADIN, PLAVIX, AGGRENOX, PLATEL, PRADAXA, OR XARELTO) NO . WHEN WAS YOUR LAST DOSE? DATE: TIME: . NEUROLOGY: HAVE YOU FALLEN IN THE PAST 12 MONTHS? NO . ANY NEW EXTREMITY NUMBNESS OR WEAKNESS? YES, STATES WEAKNESS TO LEFT LEG . CARDIOLOGY: DO YOU HAVE A PACEMAKER OR DEFIBRILLATOR? NO . RESPIRATORY: HAVE YOU BEEN SICK IN THE PAST WEEK? YES, HAD BRONCHITIS FOR A COUPLE OF MONTHS . FEVER NO . FLU LIKE SYMPTOMS? NO . COUGH NO . INTEGUMENTARY: DO YOU HAVE ANY RASHES OR OPEN SORES? NO . ALLERGIC/IMMUNO: ARE YOU ALLERGIC TO IV DYE? NO . ANY NEW ALLERGIES? NO . PSYCHIATRIC: DO YOU HAVE THOUGHTS OF HURTING YOURSELF OR SOMEONE ELSE? NO . ARE YOU ABUSED, NEGLECTED, OR IN AN UNSAFE ENVIRONMENT? NO . ENDOCRINOLOGY: ARE YOU DIABETIC? NO . OTHER: DO YOU NEED ANY PRESCRIPTIONS? YES . IF YES, PLEASE LIST: ____PERCOCET, CYMBALTA . ANY NEW PROBLEMS WITH YOUR MEDICATIONS? NO . WHEN DID YOU LAST EAT? ____ . WHEN DID YOU LAST DRINK? ____ . WHAT DID YOU LAST DRINK? ____ . NAME OF PERSON DRIVING YOU HOME? ____ . DO YOU HAVE ANY OTHER QUESTIONS OR CONCERNS YES, STATES PAIN IS AT A MAXIMUM - HAVING DIFFICULTY WALKING AND WITH NORMAL ACTIVITY . VITAL SIGNS WT 231.8 LBS, HT 63 IN, BMI 41.06 INDEX, BP 135/64 MM HG, HR 79 /MIN, RR 18 /MIN, TEMP 97.3 F, OXYGEN SAT % 100%, SAFE IN ENV? (Y/N) YES, REVIEWED BY: KATHE. EXAMINATION GENERAL EXAMINATION: GENERALNO ACUTE DISTRESS, WELL NOURISHED AND HYDRATED. PSYCHAPPROPRIATE MOOD AND AFFECT . LUNGS:CLEAR TO AUSCULTATION BILATERALLY, NO WHEEZES, RHONCHI, RALES. HEART:NO MURMURS, REGULAR RATE AND RHYTHM. BACK:POINT TENDER BILATERAL LOW BACK, SURROUNDING SKIN SHOWS NO ERYTHEMA, ECCHYMOSIS, INCREASED WARMTH, AND/OR SKIN ERUPTIONS NOTED. . ASSESSMENTS MYALGIA, OTHER SITE - M79.18 (PRIMARY) TREATMENT MYALGIA, OTHER SITE REFILL PERCOCET TABLET, 5-325 MG, 1-2, ORALLY, EVERY 6 -8 HRS PRN PAIN MDD=6 CHRONIC PAIN, 30 DAY(S), 180, REFILLS 0 REFILL CYMBALTA CAPSULE DELAYED RELEASE PARTICLES, 60 MG, 1 CAPSULE, ORALLY, ONCE A DAY, 90 DAY(S), 90 CAPSULE NOTES: BILATERAL LOW BACK TPI . CLINICAL NOTES: 48-YEAR-OLD FEMALE IN FOR CHRONIC PAIN FOLLOW-UP. GIVEN PRESENTING SYMPTOMS AND RESULTS OF PHYSICAL EXAMINATION RECOMMENDED RESTARTING PERCOCET, U TOX TO BE COLLECTED TODAY, NEW NARCOTICS AGREEMENT TO BE SIGNED TODAY, AND BILATERAL LOW BACK TRIGGER POINT WITH POST PROCEDURAL FOLLOW-UP. PATIENT HAS EXPRESSED UNDERSTANDING OF AND WAS IN AGREEMENT WITH TREATMENT PLAN. GIVEN TIME TO ASK QUESTIONS AND EXPRESS CONCERNS., ISTOP REGISTRY REVIEWED AND DEMONSTRATES COMPLLIANCE. (REF # [id number] ) BRINGS IN MEDICATIONS WHICH IS APPROPRIATE FOR WHAT WAS DISPENSED. RECENT URINE TOXICOLOGY REVIEWED. NO UNAUTHORIZED MEDICATIONS. NO ILLICIT SUBSTANCES AND PRESCRIBED MEDICATIONS WERE PRESENT. PREVENTIVE MEDICINE PAIN CLINIC TEACHING: PROCEDURE TEACHING REVIEWED INFORMATION ON TRIGGER POINT INJECTION PROCEDURE WITH PATIENT. ALSO REVIEWED PRE-PROCEDURE INSTRUCTIONS. PATIENT VERBALIZED AN UNDERSTANDING. JOSE POSEY 09/10/2019 4:09:25 PM > . PROCEDURE CODES FA211 ESTABILISHED PATIENT [facility] CHARGE DISPOSITION & COMMUNICATION FOLLOW UP POSTPROCEDURE (REASON: BILATERAL LOW BACK TPI) ELECTRONICALLY SIGNED BY CHRISTINA TREJO ON 09/11/2019 AT 03:34 PM EST DISCLAIMER : THIS IS A VISIT SUMMARY EXTRACTED FROM THE [employer] CHART. IT IS NOT A COPY OF THE [employer] PROGRESS NOTE. CHARMAINE
== END ==
LOC: M PAIN 10:15
PROVIDERS: ATTEND Family Medicine
DX: M79.18 Myalgia, other site (principal); J45.909 Unspecified asthma, uncomplicated; E55.9 Vitamin D deficiency, unspecified; G43.909 Migraine, unspecified, not intractable, without status migrainosus; K21.9 Gastro-esophageal reflux disease without esophagitis; Z86.59 Personal history of other mental and behavioral disorders; G47.33 Obstructive sleep apnea (adult) (pediatric); Z88.0 Allergy status to penicillin; Z88.1 Allergy status to other antibiotic agents; Z88.8 Allergy status to other drugs, medicaments and biological substances; Z91.09 Other allergy status, other than to drugs and biological substances; E66.01 Morbid (severe) obesity due to excess calories; Z68.41 Body mass index [BMI] 40.0-44.9, adult; Z79.891 Long term (current) use of opiate analgesic; Z79.899 Other long term (current) drug therapy

== ENCOUNTER → 2019-09-13 | Outpatient (REF) | payer OTHER | LOC: M SFHCADAM 12:27 | PROVIDERS: ATTEND Physician Assistant | DX: Z53.9 Procedure and treatment not carried out, unspecified reason (principal) ==

== ENCOUNTER → 2019-09-25 | Outpatient (REF) | payer OTHER, MEDICAID ==
[2019-09-25 19:03] LABS: BASO % 0.9 % (0.0-1.0); EOS % 0.7 % (0.0-3.0); HEMATOCRIT 37.8 % (36.0-47.0); HEMOGLOBIN 11.5 g/dl (12.0-15.5); LYMPH # 1.9 10^3/uL (1.5-5.0); LYMPH % 42.8 % (24.0-44.0); MEAN CORPUSCULAR HEMOGLOBIN 24.9 pg (27.0-33.0); MEAN CORPUSCULAR HGB CONC 30.4 g/dl (32.0-36.5); MEAN CORPUSCULAR VOLUME 81.8 fl (80.0-96.0); MONO # 0.5 10^3/uL (0.0-0.8); MONO % 11.5 % (0.0-5.0); NEUTROPHILS # 1.9 10^3/uL (1.5-8.5); NEUTROPHILS % 43.9 % (36.0-66.0); PLATELET COUNT, AUTOMATED 358 10^3/uL (150-450); RED BLOOD COUNT 4.62 10^6/uL (4.00-5.40); WHITE BLOOD COUNT 4.4 10^3/uL (4.0-10.0)
[2019-09-25 19:18] LABS: ALBUMIN 3.6 GM/DL (3.2-5.2); ALT/SGPT 20 U/L (12-78); BILIRUBIN,TOTAL 0.3 MG/DL (0.2-1.0); BLOOD UREA NITROGEN 11 MG/DL (7-18); CALCIUM LEVEL 8.9 MG/DL (8.5-10.1); CARBON DIOXIDE LEVEL 27 MEQ/L (21-32); CHLORIDE LEVEL 106 MEQ/L (98-107); CREATININE FOR GFR 0.85 MG/DL (0.55-1.30); FREE T4 0.89 NG/DL (0.76-1.46); GLOMERULAR FILTRATION RATE > 60.0 (>58); GLUCOSE, FASTING 68 MG/DL (70-100); MAGNESIUM LEVEL 1.9 MG/DL (1.8-2.4); POTASSIUM SERUM 4.1 MEQ/L (3.5-5.1); SODIUM LEVEL 141 MEQ/L (136-145); THYROID STIMULATING HORMONE 0.314 uIU/ML (0.358-3.740)
[2019-09-25 19:19] LABS: TOTAL 25(OH) VITAMIN D 65.9 NG/ML (30.0-100.0)
[2019-09-25 19:20] LABS: FOLATE 14.4 NG/ML; VITAMIN B12 LEVEL 489 PG/ML
== END ==
LOC: M LABDRWAD 18:27
PROVIDERS: ATTEND Physician Assistant
DX: R41.3 Other amnesia (principal); E83.42 Hypomagnesemia; D64.9 Anemia, unspecified

== ENCOUNTER → 2019-10-22 | Outpatient (CLI) | payer OTHER, MEDICAID ==
[2019-10-22 11:56] LABS: BASO % 0.9 % (0.0-1.0); EOS # 0.1 10^3/uL (0.0-0.5); EOS % 1.5 % (0.0-3.0); HEMATOCRIT 37.6 % (36.0-47.0); HEMOGLOBIN 11.6 g/dl (12.0-15.5); LYMPH % 29.4 % (24.0-44.0); MEAN CORPUSCULAR HEMOGLOBIN 25.4 pg (27.0-33.0); MEAN CORPUSCULAR HGB CONC 30.9 g/dl (32.0-36.5); MEAN CORPUSCULAR VOLUME 82.5 fl (80.0-96.0); MONO # 0.4 10^3/uL (0.0-0.8); MONO % 10.6 % (0.0-5.0); NEUTROPHILS # 1.9 10^3/uL (1.5-8.5); PLATELET COUNT, AUTOMATED 302 10^3/uL (150-450); RED BLOOD COUNT 4.56 10^6/uL (4.00-5.40); WHITE BLOOD COUNT 3.4 10^3/uL (4.0-10.0)
[2019-10-22 12:23] LABS: ERYTHROCYTE SEDIMENTATION RATE 24 mm/hr (0-20)
[2019-10-22 12:33] LABS: ALBUMIN 3.3 GM/DL (3.2-5.2); ALT/SGPT 28 U/L (12-78); BILIRUBIN,TOTAL 0.3 MG/DL (0.2-1.0); BLOOD UREA NITROGEN 10 MG/DL (7-18); CARBON DIOXIDE LEVEL 25 MEQ/L (21-32); CHLORIDE LEVEL 111 MEQ/L (98-107); GLOMERULAR FILTRATION RATE > 60.0 (>58); GLUCOSE, FASTING 108 MG/DL (70-100); POTASSIUM SERUM 4.4 MEQ/L (3.5-5.1); RHEUMATOID FACTOR QUANT < 10.0 IU/ML (<15.0); SODIUM LEVEL 140 MEQ/L (136-145); THYROID STIMULATING HORMONE 0.769 uIU/ML (0.358-3.740); TOTAL 25(OH) VITAMIN D 64.9 NG/ML (30.0-100.0); TOTAL PROTEIN 6.7 GM/DL (6.4-8.2)
[2019-10-23 14:07] LABS: ANTINUCLEAR ANTIBODIES DIRECT Negative (Negative)
== END ==
LOC: M PLALAB 10:32
PROVIDERS: ATTEND Psychiatry & Neurology Neurology
DX: R51 Headache (principal)

== ENCOUNTER → 2020-05-26 | Outpatient (REF) | payer OTHER ==
[~2020-05-26] MED LIST changes: -NABU-119 PO; +NABU-53 PO; +PANT40TA29 PO; -PANT40TA3 PO
== END ==
LOC: M SFHCWAGY 12:56
PROVIDERS: ATTEND Nurse Practitioner Women's Health
DX: Z12.4 Encounter for screening for malignant neoplasm of cervix (principal); N76.0 Acute vaginitis

== ENCOUNTER → 2020-05-26 | Outpatient (CLI) | payer OTHER ==
--- NOTE | 2020-05-26 13:54 | REPMRS ---
Patient History The patient states she had a clinical breast exam in 05/2020. Family history of prostate cancer at age 60 in father, breast cancer in paternal aunt, breast cancer in paternal aunt. No Hormone Replacement Therapy Digital Woman Screen Mammo: May 26, 2020 - Exam #: [id number] Bilateral CC and MLO view(s) were taken. Technologist: Adalgisa Villanueva, Technologist Prior study comparison: November 02, 2018, bilateral digital woman screen mammo performed at [facility]. November 01, 2017, digital woman screen mammo performed at [facility]. September 16, 2016, digital woman screen mammo performed at [facility]. FINDINGS: There are scattered fibroglandular densities. The Volpara volumetric breast density category is:B. There has been no change in the appearance of the mammogram from the prior studies. There is a mild amount of scattered fibroglandular density which is fairly symmetric. There is no interval development of dominant mass, architectural distortion, or grouped microcalcification suggestive of malignancy. 3-D tomosynthesis shows no additional findings. Assessment: BI-RADS/ACR category 1 mammogram. Negative Mammogram. Recommendation Routine screening mammogram of both breasts in 1 year (for women over age 40). This patient's Lifetime Breast Cancer Risk is estimated at 12.5 %. This mammogram was interpreted with the aid of an FDA-approved computer-aided dectection system. Electronically Signed By: Adam Syed MD 05/26/20 [id number]
== END ==
LOC: M WHC 11:11
PROVIDERS: ATTEND Nurse Practitioner Women's Health
DX: Z12.31 Encounter for screening mammogram for malignant neoplasm of breast (principal)

== ENCOUNTER → 2020-07-13 | Outpatient (REF) | payer OTHER | LOC: M SFHCWAGY 13:30 | PROVIDERS: ATTEND Nurse Practitioner Women's Health | DX: N93.9 Abnormal uterine and vaginal bleeding, unspecified (principal) ==

== ENCOUNTER → 2020-08-25 | Outpatient (REF) | payer OTHER ==
[2020-08-25 18:04] LABS: HEMATOCRIT 39.7 % (36.0-47.0); HEMOGLOBIN 12.7 g/dl (12.0-15.5); MEAN CORPUSCULAR HEMOGLOBIN 28.1 pg (27.0-33.0); MEAN CORPUSCULAR VOLUME 87.8 fl (80.0-96.0); PLATELET COUNT, AUTOMATED 299 10^3/uL (150-450); RED BLOOD COUNT 4.52 10^6/uL (4.00-5.40); WHITE BLOOD COUNT 4.3 10^3/uL (4.0-10.0)
[2020-08-25 18:52] LABS: ALBUMIN 3.3 GM/DL (3.2-5.2); ALT/SGPT 20 U/L (12-78); BILIRUBIN,TOTAL 0.3 MG/DL (0.2-1.0); BLOOD UREA NITROGEN 11 MG/DL (7-18); CARBON DIOXIDE LEVEL 26 MEQ/L (21-32); CHLORIDE LEVEL 109 MEQ/L (98-107); CREATININE FOR GFR 0.89 MG/DL (0.55-1.30); FERRITIN 25 NG/ML (8-252); FREE T4 0.73 NG/DL (0.76-1.46); GLOMERULAR FILTRATION RATE > 60.0 (>58); GLUCOSE, FASTING 90 MG/DL (70-100); IRON (FE) 37 UG/DL (50-170); MAGNESIUM LEVEL 1.9 MG/DL (1.8-2.4); SODIUM LEVEL 140 MEQ/L (136-145); TOTAL 25(OH) VITAMIN D 55.3 NG/ML (30.0-100.0); TOTAL PROTEIN 6.5 GM/DL (6.4-8.2)
== END ==
LOC: M SFHCADAM 14:11
PROVIDERS: ATTEND Physician Assistant
DX: J45.909 Unspecified asthma, uncomplicated (principal); E83.42 Hypomagnesemia; F32.9 Major depressive disorder, single episode, unspecified; N93.9 Abnormal uterine and vaginal bleeding, unspecified; E55.9 Vitamin D deficiency, unspecified

== ENCOUNTER → 2020-11-10 | Outpatient (REF) | payer OTHER ==
[2020-11-10 13:53] LABS: FREE T4 0.94 NG/DL (0.76-1.46); THYROID STIMULATING HORMONE 0.094 uIU/ML (0.358-3.740)
== END ==
LOC: M SFHCADAM 08:54
PROVIDERS: ATTEND Physician Assistant
DX: E03.9 Hypothyroidism, unspecified (principal)

== ENCOUNTER 2020-12-03 16:12 | Emergency (ER) | payer MEDICAID, OTHER ==
[~2020-12-03] VITALS: Ht 160 cm; Wt 90.9 kg
[~2020-12-03 16:12] MED LIST changes: -NABU-53 PO; +NABU-73 PO
[2020-12-03] MEDS ORDERED: FLUT1BLS2 (16:22)
[2020-12-03] MEDS ORDERED: NORCO, ANEXSIA 5/325MG TABLET (HYDROcodone/ACETAMINOPHEN) PO ONE (17:00)
--- NOTE | 2020-12-03 17:24 | REP ---
INDICATION: pain/swelling hx avn COMPARISON: 12/23/2015 TECHNIQUE: AP, lateral, bilateral oblique and sunrise views. FINDINGS: The osseous structures and joint spaces are intact, normal and stable compared to prior examination. No significant arthritic changes are appreciated. There is no evidence for acute fracture or dislocation. No joint effusion is appreciated. Surrounding soft tissues are unremarkable. No subcutaneous emphysema or radiodense foreign body. IMPRESSION: Normal stable left knee examination. No acute fracture or dislocation. <Electronically signed by Daryl Rubio > 12/03/20 6626
[2020-12-03] MEDS ORDERED: HYDR-3713 PO ×2 (17:37→17:46)
[2020-12-03 17:58] VITALS: BP 140/69
== END 2020-12-03 18:08 | disposition home or self-care (01) ==
LOC: M ED 16:12
DX: S89.92XA Unspecified injury of left lower leg, initial encounter (principal); X58.XXXA Exposure to other specified factors, initial encounter; Y92.89 Other specified places as the place of occurrence of the external cause; J45.909 Unspecified asthma, uncomplicated; K21.9 Gastro-esophageal reflux disease without esophagitis; G47.33 Obstructive sleep apnea (adult) (pediatric); F33.9 Major depressive disorder, recurrent, unspecified; F41.9 Anxiety disorder, unspecified; Z79.899 Other long term (current) drug therapy; Z88.0 Allergy status to penicillin; Z88.1 Allergy status to other antibiotic agents; Z88.8 Allergy status to other drugs, medicaments and biological substances

== ENCOUNTER → 2021-01-06 | Outpatient (CLI) | payer OTHER ==
[~2021-01-06] MED LIST changes: +FLUT1BLS2; +HYDR-3713 PO
== END ==
LOC: M CARPUL 09:57
PROVIDERS: ATTEND Physician Assistant
DX: I51.7 Cardiomegaly (principal)

== ENCOUNTER → 2021-03-23 | Outpatient (CLI) | payer OTHER ==
[~2021-03-23] MED LIST changes: -DOXY100C PO; +DOXY100C3 PO
--- NOTE | 2021-03-24 17:45 | REPVR ---
PROCEDURE INFORMATION: Exam: MR Lumbar Spine Without Contrast Exam date and time: 03/23/2021 11:25 AM Age: 50 years old Clinical indication: Low back pain; Additional info: Radiculopathy TECHNIQUE: Imaging protocol: Multiplanar magnetic resonance images of the lumbar spine without intravenous contrast. COMPARISON: MRI-Spine, L.S. without con 05/06/2016 1:54 PM FINDINGS: Vertebrae: Vertebral body heights are intact. Alignment is maintained. No pars defect is identified. Spinal cord: The conus is unremarkable in appearance, with its tip at the T12-L1 level. L1-L2: Very small new bulge without significant neural foraminal narrowing or spinal stenosis. L2-L3: Similar very small bulge without significant neural foraminal narrowing or spinal stenosis. L3-L4: Mildly decreased size of a broad-based left foraminal/far lateral protrusion with small new diffuse disc bulge. In conjunction with facet arthrosis, there is new, very mild right and mildly decreased, moderate left neural foraminal narrowing with decreased, very mild left lateral recess narrowing, without significant central canal stenosis. L4-L5: Mildly larger diffuse bulge with a new superimposed broad-based left foraminal/far lateral protrusion combining with facet arthrosis to lead to increased, mild bilateral neural foraminal narrowing without significant spinal stenosis. There is again small fluid in the facet joints. L5-S1: There is multilevel facet arthrosis, disc space narrowing and marginal osteophyte formation. This is mildly progressive at some levels. Small new disc bulge combining with facet arthrosis to lead to very mild bilateral neural foraminal narrowing without significant spinal stenosis. There is again small fluid in the right facet joint. Soft tissues: Unremarkable. IMPRESSION: Multilevel disc desiccation indicating intervertebral disk degeneration, mildly progressive at some levels as compared with 05/06/2016, with disc displacements as described. This includes new and mildly larger disc displacements as above, although a left-sided protrusion at L3-L4 is mildly decreased. COMMENTS: If surgery is considered, recommend level confirmation. Electronically signed by: Fili Pugh On 03/24/2021 17:44:11 PM
== END ==
LOC: M PLAIMG 10:25
PROVIDERS: ATTEND Pain Medicine Interventional Pain Medicine
DX: M54.16 Radiculopathy, lumbar region (principal)

== ENCOUNTER → 2021-06-08 | Outpatient (CLI) | payer OTHER ==
[~2021-06-08] MED LIST changes: -CYMB60CA3 PO; +CYMB60CA4 PO
--- NOTE | 2021-06-08 15:16 | REPMRS ---
Patient History The patient states she had a clinical breast exam in May 2021. Family history of prostate cancer at age 60 in father, breast cancer in paternal aunt, breast cancer in paternal aunt. Taking hormonal contraceptives for 1 year. Patient states no breast complaints today. Patient has signed MRS History Sheet. Digital Woman Screen Mammo: June 08, 2021 - Exam #: [id number] Bilateral CC and MLO view(s) were taken. Technologist: Julieth Amato, Technologist Prior study comparison: May 26, 2020, bilateral digital woman screen mammo performed at [facility]. November 02, 2018, bilateral digital woman screen mammo performed at [facility]. FINDINGS: There are scattered fibroglandular densities. Screening. Digital screening (2D) mammography was performed bilaterally in the CC and MLO projections. Additionally, breast tomosynthesis (3D mammography) was performed bilaterally in the CC and MLO projections. Todays exam was compared to the prior exam/exams. By history, the patient has no complaints of a palpable breast abnormality or other significant breast complaints. The Volpara volumetric breast density category is B, there are scattered areas of fibroglandular densities. The breasts are unchanged in size and shape. There are no micah-soft tissue densities or spiculated masses. There is no internal architectural distortion. There are no suspicious micah-calcific clusters. Skin thickening or nipple retraction is not present. IMPRESSION: BI-RADS Category 2- Benign Findings. There is no evidence of malignant alteration of the breasts. Followup examination recommended in one year. The lifetime Tyrer-Cuzick score is 12.3% This mammogram was read with the assistance of [employer],an FDA approved computer aided detection system for mammography. Negative x-ray reports should not delay surgical consultation if a dominant or clinically suspicious mass is present. Not all breast cancers can be identified by mammography. Therefore, we recommend that you continue to perform regular breast self-examination and physical examination and then promptly contact your physician of any concerns or changes. Adenosis and dense breasts may obscure an underlying neoplasm. No significant changes when compared with prior studies. Assessment: BI-RADS/ACR category 2 mammogram. Benign Findings. Recommendation Routine screening mammogram of both breasts in 1 year. Electronically Signed By: Moose Padilla MD 06/08/21 6667
== END ==
LOC: M WHC 11:55
PROVIDERS: ATTEND Nurse Practitioner Women's Health
DX: Z12.31 Encounter for screening mammogram for malignant neoplasm of breast (principal)

== ENCOUNTER → 2021-06-08 | Outpatient (REF) | payer OTHER, MEDICAID | LOC: M SFHCWAGY 19:21 | PROVIDERS: ATTEND Nurse Practitioner Women's Health | DX: Z12.4 Encounter for screening for malignant neoplasm of cervix (principal) ==

== ENCOUNTER → 2021-06-30 | Outpatient (REF) | payer OTHER | LOC: M SFHCADAM 16:04 | PROVIDERS: ATTEND Family Medicine | DX: R05.9 Cough, unspecified (principal) ==

== ENCOUNTER → 2021-10-25 | Outpatient (CLI) | payer OTHER | LOC: M LABSMTC 11:03 | PROVIDERS: ATTEND Orthopaedic Surgery Sports Medicine | DX: Z01.812 Encounter for preprocedural laboratory examination (principal); Z20.822 Contact with and (suspected) exposure to COVID-19 ==

== ENCOUNTER → 2021-11-30 | Outpatient (CLI) | payer MEDICAID | LOC: M OUTALCOH 08:43 | PROVIDERS: ATTEND Psychiatry & Neurology Psychiatry | DX: Z03.89 Encounter for observation for other suspected diseases and conditions ruled out (principal) ==

== ENCOUNTER 2021-12-09 10:30 | Outpatient (RCR) | payer MEDICAID | END 2021-12-11 | LOC: M OUTALCOH 10:30 | PROVIDERS: ATTEND Psychiatry & Neurology Psychiatry | DX: Z03.89 Encounter for observation for other suspected diseases and conditions ruled out (principal) ==

== ENCOUNTER → 2022-02-09 | Outpatient (CLI) | payer MEDICAID ==
[~2022-02-09] MED LIST changes: +ALBU2.5V10 INH; -ALBU83IN INH
== END ==
LOC: M OUTALCOH 09:44
PROVIDERS: ATTEND Psychiatry & Neurology Psychiatry
DX: Z03.89 Encounter for observation for other suspected diseases and conditions ruled out (principal)

== ENCOUNTER → 2022-02-09 | Outpatient (REF) | payer OTHER ==
[2022-02-09 16:41] LABS: HEMATOCRIT 37.9 % (36.0-47.0); HEMOGLOBIN 13.1 g/dl (12.0-15.5); MEAN CORPUSCULAR HEMOGLOBIN 29.8 pg (27.0-33.0); MEAN CORPUSCULAR HGB CONC 34.6 g/dl (32.0-36.5); MEAN CORPUSCULAR VOLUME 86.1 fl (80.0-96.0); PLATELET COUNT, AUTOMATED 252 10^3/uL (150-450); WHITE BLOOD COUNT 3.5 10^3/uL (4.0-10.0)
[2022-02-09 16:59] LABS: HEMOGLOBIN A1c 5.1 %
[2022-02-09 17:19] LABS: ALBUMIN 3.6 GM/DL (3.2-5.2); ALT/SGPT 29 U/L (12-78); BILIRUBIN,TOTAL 0.4 MG/DL (0.2-1.0); BLOOD UREA NITROGEN 10 MG/DL (7-18); CALCIUM LEVEL 9.2 MG/DL (8.5-10.1); CARBON DIOXIDE LEVEL 27 MEQ/L (21-32); CHLORIDE LEVEL 111 MEQ/L (98-107); CHOLESTEROL LEVEL 158 MG/DL (<200); CHOLESTEROL RISK RATIO 2.724 (<5); CREATININE FOR GFR 0.78 MG/DL (0.55-1.30); FREE T4 0.68 NG/DL (0.76-1.46); GLOMERULAR FILTRATION RATE > 60.0 (>58); GLUCOSE, FASTING 125 MG/DL (70-100); HDL CHOLESTEROL 58 MG/DL (>40); LDL CHOLESTEROL 74 MG/DL (<100); NON-HDL-C 100 MG/DL; POTASSIUM SERUM 3.9 MEQ/L (3.5-5.1); SODIUM LEVEL 143 MEQ/L (136-145); THYROID STIMULATING HORMONE 0.699 uIU/ML (0.358-3.740); TOTAL PROTEIN 6.5 GM/DL (6.4-8.2); TRIGLYCERIDES LEVEL 131 MG/DL (<150)
[2022-02-09 17:28] LABS: TOTAL 25(OH) VITAMIN D 50.6 NG/ML (30.0-100.0)
== END ==
LOC: M SFHCADAM 13:32
PROVIDERS: ATTEND Physician Assistant
DX: E55.9 Vitamin D deficiency, unspecified (principal); D64.9 Anemia, unspecified; E66.9 Obesity, unspecified; Z13.220 Encounter for screening for lipoid disorders; Z13.1 Encounter for screening for diabetes mellitus

== ENCOUNTER → 2022-04-08 | Outpatient (CLI) | payer OTHER, MEDICAID | LOC: M SOG 10:45 | PROVIDERS: ATTEND Physician Assistant | DX: M25.531 Pain in right wrist (principal) ==

== ENCOUNTER → 2022-05-11 | Outpatient (REF) | payer OTHER ==
[2022-05-11 14:04] LABS: FREE T4 1.11 NG/DL (0.76-1.46); THYROID STIMULATING HORMONE 0.021 uIU/ML (0.358-3.740)
== END ==
LOC: M SFHCADAM 10:55
PROVIDERS: ATTEND Physician Assistant
DX: E03.9 Hypothyroidism, unspecified (principal)

== ENCOUNTER → 2022-09-21 | Outpatient (REF) | payer OTHER ==
[~2022-09-21] MED LIST changes: +LEVO25TA5 PO; +MONT-5 PO; -SING10TA32 PO
== END ==
LOC: M SFHCWAGY 17:05
PROVIDERS: ATTEND Nurse Practitioner Family
DX: Z12.4 Encounter for screening for malignant neoplasm of cervix (principal); Z77.9 Other contact with and (suspected) exposures hazardous to health

== ENCOUNTER → 2022-09-21 | Outpatient (CLI) | payer OTHER ==
[~2022-09-21] MED LIST changes: -LEVO25TA5 PO; -MONT-5 PO; +SING10TA32 PO
== END ==
LOC: M WHC 10:59
PROVIDERS: ATTEND Nurse Practitioner Family
DX: Z12.31 Encounter for screening mammogram for malignant neoplasm of breast (principal)

== ENCOUNTER → 2022-10-11 | Outpatient (CLI) | payer OTHER ==
[~2022-10-11] MED LIST changes: +MONT-5 PO; -SING10TA32 PO
== END ==
LOC: M WHC 11:08
PROVIDERS: ATTEND Nurse Practitioner Family
DX: N94.10 Unspecified dyspareunia (principal); Z97.5 Presence of (intrauterine) contraceptive device

== ENCOUNTER 2022-10-24 21:18 | Emergency (ER) | payer OTHER ==
[~2022-10-24] VITALS: Ht 160 cm; Wt 90.9 kg
[2022-10-24 21:21] VITALS: BP 132/67
[2022-10-24] MEDS ORDERED: LEVO25TA5 PO (21:32)
== END 2022-10-25 01:29 | disposition left against medical advice (07) ==
LOC: M ED 21:18
DX: Z53.21 Procedure and treatment not carried out due to patient leaving prior to being seen by health care provider (principal)

== ENCOUNTER → 2022-11-23 | Outpatient (CLI) | payer OTHER ==
[~2022-11-23] MED LIST changes: +LEVO25TA5 PO
== END ==
LOC: M PLAIMG 12:37
PROVIDERS: ATTEND Nurse Practitioner Family
DX: M54.16 Radiculopathy, lumbar region (principal)

== ENCOUNTER → 2023-01-11 | Outpatient (CLI) | payer OTHER | LOC: M ADAMS 14:24 | PROVIDERS: ATTEND Physician Assistant | DX: R05.3 Chronic cough (principal) ==

== ENCOUNTER → 2023-02-15 | Outpatient (REF) | payer OTHER | LOC: M SFHCADAM 09:08 | PROVIDERS: ATTEND Physician Assistant | DX: Z53.9 Procedure and treatment not carried out, unspecified reason (principal) ==

== ENCOUNTER → 2023-02-20 | Outpatient (REF) | payer OTHER ==
[2023-02-20 13:33] LABS: BASO % 0.9 % (0.0-1.0); EOS # 0.1 10^3/uL (0.0-0.5); EOS % 2.8 % (0.0-3.0); HEMATOCRIT 41.4 % (36.0-47.0); LYMPH # 1.5 10^3/uL (1.5-5.0); LYMPH % 48.4 % (24.0-44.0); MEAN CORPUSCULAR HEMOGLOBIN 29.2 pg (27.0-33.0); MEAN CORPUSCULAR HGB CONC 33.8 g/dl (32.0-36.5); MEAN CORPUSCULAR VOLUME 86.3 fl (80.0-96.0); MONO # 0.4 10^3/uL (0.0-0.8); MONO % 11.4 % (2.0-8.0); NEUTROPHILS # 1.1 10^3/uL (1.5-8.5); NEUTROPHILS % 35.9 % (36.0-66.0); PLATELET COUNT, AUTOMATED 297 10^3/uL (150-450); WHITE BLOOD COUNT 3.2 10^3/uL (4.0-10.0)
[2023-02-20 13:38] LABS: ALBUMIN 3.5 G/DL (3.2-5.2); ALKALINE PHOSPHATASE 64 U/L (46-116); ALT/SGPT 18 U/L (7.0-40); AST/SGOT < 8 U/L (<34); BILIRUBIN,TOTAL 0.9 MG/DL (0.3-1.2); BLOOD UREA NITROGEN 14 MG/DL (9-23); CALCIUM LEVEL 8.7 MG/DL (8.5-10.1); CARBON DIOXIDE LEVEL 28 MMOL/L (20-31); CHLORIDE LEVEL 109 MMOL/L (98-107); CHOLESTEROL LEVEL 154 MG/DL (<200); CHOLESTEROL RISK RATIO 2.38 (<5); CREATININE FOR GFR 0.76 MG/DL (0.55-1.30); GLOMERULAR FILTRATION RATE > 60.0 (>51); GLUCOSE, FASTING 99 MG/DL (60-100); HDL CHOLESTEROL 64.7 MG/DL (>40); LDL CHOLESTEROL 75.9 MG/DL (<100); NON-HDL-C 89.3 MG/DL; POTASSIUM SERUM 4.4 MMOL/L (3.5-5.1); SODIUM LEVEL 139 MMOL/L (136-145); TOTAL PROTEIN 6.1 G/DL (5.7-8.2); TRIGLYCERIDES LEVEL 67 MG/DL (<150)
[2023-02-20 13:40] LABS: TOTAL 25(OH) VITAMIN D 81.8 NG/ML (20.0-100.0)
[2023-02-20 13:49] LABS: HEMOGLOBIN A1c 5.2 % (4.0-6.0)
== END ==
LOC: M SFHCADAM 10:25
PROVIDERS: ATTEND Physician Assistant
DX: J45.41 Moderate persistent asthma with (acute) exacerbation (principal); E55.9 Vitamin D deficiency, unspecified; E66.9 Obesity, unspecified; M54.42 Lumbago with sciatica, left side; Z13.220 Encounter for screening for lipoid disorders; Z13.1 Encounter for screening for diabetes mellitus

== ENCOUNTER 2023-04-11 08:32 | Day surgery (SDC) | payer OTHER ==
[~2023-04-11] VITALS: Ht 160 cm; Wt 92.5 kg
[~2023-04-11 08:32] MED LIST changes: +AZEL1SPR3; +BUPR300T92 PO; +CETI-24 PO; +ERGO500029 PO; +HYDR12.55 PO; +JOINT HEALTH PO; +LEVA1.2519; +LEVO50TA5 PO; +MELO15TA28 PO; +NS 1,000 ML IV ONE; +OMEP-173 PO; +OXYC7.5T3; +PHEN-239; +THERTAB52 PO
[2023-04-11] MEDS ORDERED: propofoL 200 MG/20 ML VIAL As Ordered ONE (10:06)
[2023-04-11 10:18] VITALS: TEMP 97.1
[2023-04-11 10:31] VITALS: BP 123/73; O2SAT 96
== END 2023-04-11 10:31 | disposition home or self-care (01) ==
LOC: M OPP 08:32
PROVIDERS: ATTEND Internal Medicine Gastroenterology
DX: Z12.11 Encounter for screening for malignant neoplasm of colon (principal); Z80.0 Family history of malignant neoplasm of digestive organs; K64.4 Residual hemorrhoidal skin tags; K64.8 Other hemorrhoids; Z79.51 Long term (current) use of inhaled steroids; Z79.82 Long term (current) use of aspirin; Z79.891 Long term (current) use of opiate analgesic; Z79.899 Other long term (current) drug therapy; Z88.0 Allergy status to penicillin; Z88.1 Allergy status to other antibiotic agents; Z88.8 Allergy status to other drugs, medicaments and biological substances

== ENCOUNTER → 2023-05-23 | Outpatient (REF) | payer OTHER ==
[~2023-05-23] MED LIST changes: -NS 1,000 ML IV ONE
[2023-05-23 18:57] LABS: BASO % 0.4 % (0.0-1.0); EOS # 0.1 10^3/uL (0.0-0.5); EOS % 1.5 % (0.0-3.0); HEMATOCRIT 42.4 % (36.0-47.0); HEMOGLOBIN 14.5 g/dl (12.0-15.5); LYMPH % 43.5 % (24.0-44.0); MEAN CORPUSCULAR HEMOGLOBIN 29.8 pg (27.0-33.0); MEAN CORPUSCULAR HGB CONC 34.2 g/dl (32.0-36.5); MEAN CORPUSCULAR VOLUME 87.1 fl (80.0-96.0); MONO # 0.4 10^3/uL (0.0-0.8); MONO % 9.5 % (2.0-8.0); NEUTROPHILS % 44.7 % (36.0-66.0); PLATELET COUNT, AUTOMATED 330 10^3/uL (150-450); RED BLOOD COUNT 4.87 10^6/uL (4.00-5.40); WHITE BLOOD COUNT 4.6 10^3/uL (4.0-10.0)
[2023-05-23 19:26] LABS: PERCENT SATURATION 20.7 % (13.2-45.0)
== END ==
LOC: M LABDRWAD 18:17
PROVIDERS: ATTEND Orthopaedic Surgery Adult Reconstructive Orthopaedic Surgery
DX: M25.562 Pain in left knee (principal); M17.12 Unilateral primary osteoarthritis, left knee; Z01.818 Encounter for other preprocedural examination

== ENCOUNTER → 2023-10-03 | Outpatient (CLI) | payer OTHER | LOC: M WHC 10:04 | PROVIDERS: ATTEND Nurse Practitioner Family | DX: Z12.31 Encounter for screening mammogram for malignant neoplasm of breast (principal) ==

== ENCOUNTER → 2023-10-19 | Outpatient (REF) | payer OTHER ==
[2023-10-19 13:55] LABS: BLOOD UREA NITROGEN 10 MG/DL (9-23); CALCIUM LEVEL 9.3 MG/DL (8.5-10.1); CARBON DIOXIDE LEVEL 27 MMOL/L (20-31); CHLORIDE LEVEL 106 MMOL/L (98-107); CREATININE FOR GFR 0.65 MG/DL (0.55-1.30); GLOMERULAR FILTRATION RATE > 60.0 (>51); GLUCOSE, FASTING 86 MG/DL (60-100); POTASSIUM SERUM 4.4 MMOL/L (3.5-5.1); SODIUM LEVEL 140 MMOL/L (136-145)
[2023-10-19 13:57] LABS: TOTAL 25(OH) VITAMIN D 42.8 NG/ML (20.0-100.0)
== END ==
LOC: M SFHCADAM 10:03
PROVIDERS: ATTEND Physician Assistant
DX: E55.9 Vitamin D deficiency, unspecified (principal); R60.9 Edema, unspecified

== ENCOUNTER → 2023-12-19 | Outpatient (CLI) | payer OTHER ==
[~2023-12-19] MED LIST changes: +BUPR-597 PO; -BUPR300T92 PO
== END ==
LOC: M ADAMS 12:06
PROVIDERS: ATTEND Physician Assistant Medical
DX: M54.12 Radiculopathy, cervical region (principal)

== ENCOUNTER → 2024-04-02 | Outpatient (REF) | payer OTHER ==
[2024-04-02 18:26] LABS: HEMATOCRIT 44.8 % (36.0-47.0); HEMOGLOBIN 14.6 g/dl (12.0-15.5); MEAN CORPUSCULAR HEMOGLOBIN 28.5 pg (27.0-33.0); MEAN CORPUSCULAR HGB CONC 32.6 g/dl (32.0-36.5); MEAN CORPUSCULAR VOLUME 87.3 fl (80.0-96.0); PLATELET COUNT, AUTOMATED 320 10^3/uL (150-450); RED BLOOD COUNT 5.13 10^6/uL (4.00-5.40); WHITE BLOOD COUNT 3.7 10^3/uL (4.0-10.0)
[2024-04-02 18:36] LABS: ALBUMIN 3.9 G/DL (3.2-5.2); ALKALINE PHOSPHATASE 73 U/L (46-116); ALT/SGPT 28 U/L (7.0-40); AST/SGOT 14 U/L (<34); BILIRUBIN,TOTAL 0.7 MG/DL (0.3-1.2); BLOOD UREA NITROGEN 7 MG/DL (9-23); CALCIUM LEVEL 9.8 MG/DL (8.5-10.1); CARBON DIOXIDE LEVEL 29 MMOL/L (20-31); CHLORIDE LEVEL 105 MMOL/L (98-107); CHOLESTEROL LEVEL 163 MG/DL (<200); CHOLESTEROL RISK RATIO 2.48 (<5); CREATININE FOR GFR 0.72 MG/DL (0.55-1.30); GLOMERULAR FILTRATION RATE > 60.0 (>51); GLUCOSE, FASTING 95 MG/DL (60-100); HDL CHOLESTEROL 65.6 MG/DL (>40); LDL CHOLESTEROL 71.2 MG/DL (<100); NON-HDL-C 97.4 MG/DL; POTASSIUM SERUM 4.5 MMOL/L (3.5-5.1); SODIUM LEVEL 138 MMOL/L (136-145); TOTAL PROTEIN 6.7 G/DL (5.7-8.2); TRIGLYCERIDES LEVEL 131 MG/DL (<150); VITAMIN B12 LEVEL 823 PG/ML (211-911)
[2024-04-02 18:37] LABS: FOLATE > 24.0 NG/ML (>5.4); THYROID STIMULATING HORMONE 0.056 uIU/ML (0.55-4.78)
[2024-04-02 18:38] LABS: FREE T4 1.31 NG/DL (0.89-1.76); TOTAL 25(OH) VITAMIN D 62.3 NG/ML (20.0-100.0)
[2024-04-02 18:44] LABS: HEMOGLOBIN A1c 5.1 % (4.0-6.0)
== END ==
LOC: M SFHCADAM 10:58
PROVIDERS: ATTEND Physician Assistant
DX: J45.41 Moderate persistent asthma with (acute) exacerbation (principal); Z68.36 Body mass index [BMI] 36.0-36.9, adult; E66.01 Morbid (severe) obesity due to excess calories; G54.2 Cervical root disorders, not elsewhere classified; E03.9 Hypothyroidism, unspecified; E55.9 Vitamin D deficiency, unspecified; K21.9 Gastro-esophageal reflux disease without esophagitis; Z13.1 Encounter for screening for diabetes mellitus

== ENCOUNTER → 2024-04-03 | Outpatient (REF) | payer OTHER | LOC: M SFHCADAM 16:16 | PROVIDERS: ATTEND Physician Assistant | DX: J45.41 Moderate persistent asthma with (acute) exacerbation (principal); Z68.36 Body mass index [BMI] 36.0-36.9, adult; E66.01 Morbid (severe) obesity due to excess calories; G54.2 Cervical root disorders, not elsewhere classified; E03.9 Hypothyroidism, unspecified; E55.9 Vitamin D deficiency, unspecified; K21.9 Gastro-esophageal reflux disease without esophagitis; Z13.1 Encounter for screening for diabetes mellitus ==

== ENCOUNTER → 2024-10-07 | Outpatient (REF) | payer OTHER ==
[~2024-10-07] MED LIST changes: -LEVA1.2519; +LEVA1.2526; +LEVA15HF2 INH; -LEVAINH INH
[2024-10-09 14:58] LABS: HPV APTIMA Not Detected (Not Detected)
== END ==
LOC: M SFHCWAGY 14:43
PROVIDERS: ATTEND Nurse Practitioner Family
DX: Z12.4 Encounter for screening for malignant neoplasm of cervix (principal)

== ENCOUNTER → 2024-10-07 | Outpatient (CLI) | payer OTHER | LOC: M WHC 10:28 | PROVIDERS: ATTEND Nurse Practitioner Family | DX: Z12.31 Encounter for screening mammogram for malignant neoplasm of breast (principal) ==

== ENCOUNTER → 2025-02-24 | Outpatient (REF) | payer OTHER ==
[~2025-02-24] MED LIST changes: -BUPR-597 PO; +BUPR-766 PO; +LIDO1ADH93 TD; -LIDO5DIS41 TD; -PHEN-239; +PHEN37.511
[2025-02-25 13:16] LABS: APPEARANCE, URINE HAZY (CLEAR); BACTERIA, URINE AUTO NEGATIVE (NEGATIVE); BILIRUBIN, URINE AUTO NEGATIVE (NEGATIVE); BLOOD, URINE BLOOD NEGATIVE (NEGATIVE); CALCIUM OXALATE CRYSTALS LARGE; GLUCOSE, URINE (UA) AUTO NEGATIVE (NEGATIVE); KETONE, URINE AUTO NEGATIVE (NEGATIVE); LEUKOCYTE ESTERASE, URINE AUTO 2+ (NEGATIVE); NITRITE, URINE AUTO NEGATIVE (NEGATIVE); PROTEIN, URINE AUTO NEGATIVE (NEGATIVE); RBC, URINE AUTO 0 /HPF (0-3); SPECIFIC GRAVITY URINE AUTO 1.024 (1.002-1.035); SQUAMOUS EPITHELIAL CELL UR AU 2 /HPF (0-6); UROBILINOGEN, URINE AUTO 0.2 mg/dL (0.0-2.0); WBC, URINE AUTO 53 /HPF (0-3)
== END ==
LOC: M SFHCWAGY 09:50
PROVIDERS: ATTEND Nurse Practitioner Family
DX: R39.15 Urgency of urination (principal); N73.9 Female pelvic inflammatory disease, unspecified

== ENCOUNTER → 2025-04-11 | Outpatient (REF) | payer OTHER ==
[2025-04-11 17:15] LABS: APPEARANCE, URINE CLEAR (CLEAR); BACTERIA, URINE AUTO NEGATIVE (NEGATIVE); BILIRUBIN, URINE AUTO NEGATIVE (NEGATIVE); BLOOD, URINE BLOOD NEGATIVE (NEGATIVE); GLUCOSE, URINE (UA) AUTO NEGATIVE (NEGATIVE); KETONE, URINE AUTO NEGATIVE (NEGATIVE); LEUKOCYTE ESTERASE, URINE AUTO NEGATIVE (NEGATIVE); NITRITE, URINE AUTO NEGATIVE (NEGATIVE); PROTEIN, URINE AUTO NEGATIVE (NEGATIVE); RBC, URINE AUTO 0 /HPF (0-3); SPECIFIC GRAVITY URINE AUTO 1.004 (1.002-1.035); SQUAMOUS EPITHELIAL CELL UR AU 0 /HPF (0-6); UROBILINOGEN, URINE AUTO 0.2 mg/dL (0.0-2.0); WBC, URINE AUTO 0 /HPF (0-3)
== END ==
LOC: M LAB REF 16:50
PROVIDERS: ATTEND Physician Assistant
DX: R82.90 Unspecified abnormal findings in urine (principal)

== ENCOUNTER → 2025-05-12 | Outpatient (REF) | payer OTHER | LOC: M PLALAB 16:10 | PROVIDERS: ATTEND Obstetrics & Gynecology | DX: N85.2 Hypertrophy of uterus (principal) ==

== ENCOUNTER → 2025-06-30 | Outpatient (CLI) | payer OTHER ==
[~2025-06-30] MED LIST changes: +ADVA1AER10 INH; +DOCU100C16 PO; +DUPI300I SC; +FURO20TA2 PO; +MONT10TA97 PO
[2025-06-30 15:26] LABS: ALT/SGPT 24.0 U/L (7.0-40); AST/SGOT 18.0 U/L (<34); CALCIUM LEVEL 9.3 MG/DL (8.5-10.1); CARBON DIOXIDE LEVEL 29.0 MMOL/L (20-31); CHLORIDE LEVEL 103.0 MMOL/L (98-107); CREATININE FOR GFR 0.79 MG/DL (0.55-1.30); GLOMERULAR FILTRATION RATE 90.0 (>51); POTASSIUM SERUM 4.1 MMOL/L (3.5-5.1); SODIUM LEVEL 141.0 MMOL/L (136-145)
[2025-06-30 15:28] LABS: PLATELET COUNT, AUTOMATED 295 10^3/uL (150-450)
[2025-06-30 15:52] LABS: ESTIMATED AVERAGE GLUCOSE 105.0 MG/DL (60-110)
== END ==
LOC: M PLALAB 09:38
PROVIDERS: ATTEND Obstetrics & Gynecology
DX: N85.2 Hypertrophy of uterus (principal)

== ENCOUNTER 2025-07-14 10:53 | Observation (INO) | payer OTHER ==
[~2025-07-14] VITALS: Ht 160 cm; Wt 99.8 kg
[2025-07-14] VITALS (7 sets, daily range): BP systolic 107–119; BP diastolic 57–67; TEMP 97.7–99.7; O2SAT 95–98
[2025-07-14] MEDS: ACETAMINOPHEN *IV* 1,000 MG in APPROPRIATE DILUENT 0 ML IV ONE (06:00)
[~2025-07-14 10:53] MED LIST changes: +LIDOCAINE 2% 100 MG/5 ML SDV (FOR ANES.) As Ordered ONE; +MIDAZOLAM INJ 2 MG/2 ML VIAL As Ordered ONE; +ROCURONIUM BROMIDE 50MG/5ML VIAL As Ordered ONE
[2025-07-14] MEDS: METHYLENE BLUE 0.5% (5 MG/ML) 10 ML AMP As Ordered ONE (10:56)
[2025-07-14] MEDS: LR 1,000 ML IV SCH ×2 (11:10→20:32)
[2025-07-14] MEDS: SCOPOLAMINE 1MG TRANSDERMAL PATCH TOP ONE (11:10)
[2025-07-14 11:49] LABS: BASO # 0.0 10^3/uL (0.0-0.2); BASO % 0.5 % (0.0-1.0); EOS # 0.1 10^3/uL (0.0-0.5); EOS % 3.1 % (0.0-3.0); LYMPH # 1.7 10^3/uL (1.5-5.0); LYMPH % 43.0 % (24.0-44.0); MONO # 0.3 10^3/uL (0.0-0.8); MONO % 8.4 % (2.0-8.0); NEUTROPHILS # 1.8 10^3/uL (1.5-8.5); NEUTROPHILS % 44.7 % (36.0-66.0); PLATELET COUNT, AUTOMATED 283 10^3/uL (150-450)
[2025-07-14 12:15] LABS: ALT/SGPT 23 U/L (7.0-40); AST/SGOT 19 U/L (<34); CALCIUM LEVEL 9.2 MG/DL (8.5-10.1); CARBON DIOXIDE LEVEL 27 MMOL/L (20-31); CHLORIDE LEVEL 107 MMOL/L (98-107); CREATININE FOR GFR 0.77 MG/DL (0.55-1.30); GLOMERULAR FILTRATION RATE > 90.0 (>51); POTASSIUM SERUM 4.0 MMOL/L (3.5-5.1); SODIUM LEVEL 143 MMOL/L (136-145)
[2025-07-14] MEDS ORDERED: HOME MED LIST COMPLETE! XX SCH (12:50)
[2025-07-14] MEDS: ceFAZolin SOD 2 GM IV ONCE IV ONE (12:50)
[2025-07-14] MEDS ORDERED: ACETAMINOPHEN 1000MG/100ML IV BAG As Ordered ONE (13:01)
[2025-07-14] MEDS ORDERED: dexAMETHasone 4 MG/ML 1 ML VIAL As Ordered ONE (13:46)
[2025-07-14] MEDS ORDERED: KETOROLAC 30 MG/ML 1 ML VIAL As Ordered ONE (13:46)
[2025-07-14] MEDS ORDERED: ONDANSETRON 4MG/2ML VIAL As Ordered ONE (13:46)
[2025-07-14] MEDS ORDERED: HYDROmorphone HCL 2 MG/ML 1 ML VIAL As Ordered ONE (13:56)
[2025-07-14] MEDS ORDERED: PHENYLephrine 500MCG 5ML (100MCG/ML) SYRINGE As Ordered ONE (15:01)
[2025-07-14] MEDS ORDERED: DESFLURANE 240 ML INHALANT As Ordered ONE (15:42)
[2025-07-14] MEDS ORDERED: SUGAMMADEX SODIUM 500 MG/5 ML VIAL As Ordered ONE (16:29)
[2025-07-14] MEDS ORDERED: MORPHINE 2 MG/ML 1 ML VIAL IV PRN (17:10)
[2025-07-14] MEDS ORDERED: ONDANSETRON 4MG/2ML VIAL IV PRN (17:20)
[2025-07-14] MEDS: HYDROMORPHONE HCL 0.5 MG/0.5 ML SYRINGE IV PRN (17:23)
[2025-07-14] MEDS ORDERED: KETOROLAC 30 MG/ML 1 ML VIAL IV SCH (20:00)
[2025-07-14] MEDS: KETOROLAC 30 MG/ML 1 ML VIAL IV SCH (23:01)
[2025-07-15] VITALS (8 sets, daily range): BP systolic 105–138; BP diastolic 51–71; TEMP 97.6–99.5; O2SAT 91–97
[2025-07-15] MEDS: OMEPRAZOLE 20MG CAP PO ONE (00:49)
[2025-07-15] MEDS: ADVAIR HFA 230/21 MCG INHALER INH SCH (01:02)
[2025-07-15 08:43] LABS: BASO # 0.0 10^3/uL (0.0-0.2); BASO % 0.0 % (0.0-1.0); EOS # 0.0 10^3/uL (0.0-0.5); EOS % 0.0 % (0.0-3.0); LYMPH # 1.1 10^3/uL (1.5-5.0); LYMPH % 12.4 % (24.0-44.0); MONO # 0.6 10^3/uL (0.0-0.8); MONO % 7.0 % (2.0-8.0); NEUTROPHILS # 6.9 10^3/uL (1.5-8.5); NEUTROPHILS % 80.4 % (36.0-66.0); PLATELET COUNT, AUTOMATED 240 10^3/uL (150-450)
[2025-07-15] MEDS: IBUPROFEN 800 MG TAB PO SCH (18:57)
[2025-07-15] MEDS: DOCUSATE SODIUM 100 MG CAPSULE PO PRN (20:33)
[2025-07-15] MEDS: TIOTROPIUM BROM 2.5MCG/ACTUATION 4GM INH INH PRN (20:45)
[2025-07-15] MEDS: MONTELUKAST 10 MG TAB PO SCH (22:38)
[2025-07-16] VITALS (7 sets, daily range): BP systolic 107–138; BP diastolic 61–81; TEMP 97.8–98.9; O2SAT 94–97
[2025-07-16] MEDS: OMEPRAZOLE 20MG CAP PO SCH (09:35)
[2025-07-16] MEDS: buPROPion **XL** 150 MG TABLET PO SCH (09:35)
[2025-07-16] MEDS: ACETAMINOPHEN 500 MG TAB PO PRN (09:36)
[2025-07-17 04:00] VITALS: BP 117/65; TEMP 97.9; O2SAT 98
[2025-07-17 08:20] VITALS: BP 128/70; TEMP 97.8; O2SAT 77; O2SAT 95
[2025-07-17] MEDS: MORPHINE 2 MG/ML 1 ML VIAL IV PRN (08:56)
[2025-07-17 12:00] VITALS: BP 144/78; TEMP 98.5; O2SAT 82
[2025-07-17 12:20] LABS: PLATELET COUNT, AUTOMATED 235 10^3/uL (150-450)
[2025-07-17 16:15] VITALS: BP 136/65; TEMP 98.3; O2SAT 95
[2025-07-17] MEDS ORDERED: IRON SUCROSE 100 MG/5 ML VIAL IV SCH (17:35)
[2025-07-17 20:00] VITALS: BP 123/69; TEMP 98; O2SAT 94
[2025-07-17] MEDS: IRON SUCROSE 200MG IVP IV ONE (21:41)
[2025-07-18] VITALS: BP 122/74; TEMP 97; O2SAT 96
[2025-07-18 04:00] VITALS: BP 127/68; TEMP 97.4; O2SAT 95
[2025-07-18 07:49] VITALS: BP 118/68; TEMP 97.2; O2SAT 99
[2025-07-18 12:05] VITALS: BP 160/96; TEMP 96.5; O2SAT 95
[2025-07-22] MEDS ORDERED: OXYC-517 PO (11:11)
== END 2025-07-18 15:15 | disposition home or self-care (01) ==
LOC: M SDC 10:53 → M RR INP 10:54 → EDSTATUS 13:00 → M PED 18:38
PROVIDERS: ADMIT Obstetrics & Gynecology; ATTEND Obstetrics & Gynecology
DX: D25.1 Intramural leiomyoma of uterus (principal); D25.2 Subserosal leiomyoma of uterus; N85.8 Other specified noninflammatory disorders of uterus; N93.9 Abnormal uterine and vaginal bleeding, unspecified; R11.0 Nausea; R30.0 Dysuria; G47.30 Sleep apnea, unspecified; E04.1 Nontoxic single thyroid nodule; Z88.8 Allergy status to other drugs, medicaments and biological substances; Z88.1 Allergy status to other antibiotic agents; Z88.0 Allergy status to penicillin; Z88.2 Allergy status to sulfonamides; Z79.899 Other long term (current) drug therapy
CPT/HCPCS: 36415; 58150; 80053; 81025; 85025; 85027; 86850; 86900; 86901; 88307; 94640; 94664; 96374; 96375; 96376; J0131; J0688; J1100; J1171; J1756; J1885; J2250; J2371; J2405; J2765; J3010

== ENCOUNTER → 2025-07-28 | Outpatient (REF) | payer OTHER ==
[~2025-07-28] MED LIST changes: -LIDOCAINE 2% 100 MG/5 ML SDV (FOR ANES.) As Ordered ONE; -MIDAZOLAM INJ 2 MG/2 ML VIAL As Ordered ONE; +OXYC-517 PO; -ROCURONIUM BROMIDE 50MG/5ML VIAL As Ordered ONE
== END ==
LOC: M SFHCWAGY 15:24
PROVIDERS: ATTEND Obstetrics & Gynecology
DX: R39.89 Other symptoms and signs involving the genitourinary system (principal); R39.11 Hesitancy of micturition